=== PATIENT | male | born 1945 | race Caucasian/White ===

== ENCOUNTER 2017-07-07 13:13 | Inpatient (IN) | payer OTHER ==
[~2017-07-07] VITALS: Ht 182.9 cm; Wt 95.0 kg
[2017-07-07] VITALS (33 sets, daily range): BP systolic 97–162; BP diastolic 56–110; PULSE 64–94; RESP 14–33; Ht 182.9 cm; Wt 95.0 kg
[2017-07-07] MEDS ORDERED: MIDAZOLAM 5 MG/ML 1 ML ONE (13:35)
[2017-07-07] MEDS ORDERED: PROPOFOL 100 ML IV STA (13:42)
[2017-07-07] MEDS ORDERED: SODIUM CHLORIDE 0.9% 500 ML BAG IV* STA ×2 (13:42→15:18)
[2017-07-07] MEDS ORDERED: ASPIRIN 300 MG SUPP PR STA (13:42)
[2017-07-07] MEDS ORDERED: VECURONIUM 100 MG in DEXTROSE 5% 100 ML IV ONE (13:42)
[2017-07-07] MEDS ORDERED: PROPOFOL 100 ML ONE (13:46)
--- NOTE | 2017-07-07 13:52 | ERD ---
ER Documentation Chief Complaint Chief Complaint CARDIAC ARREST HPI History is supplemented by subsequent discussion with the [place] [facility]. 71-year-old male with history of coronary artery disease status post PCI and CABG, hyperlipidemia, hypertension and GERD presents to the ED via rescue ambulance after resuscitated cardiac arrest. Patient was found down in the locker room at his gym unresponsive. Bystander CPR was initiated. Approximate downtime was 8 minutes. When paramedics arrived patient was found to be in ventricular fibrillation was resuscitated with epinephrine 1 mg 3, amiodarone 450 mg IV and defibrillation 3. His transport to the ED in sinus rhythm. On arrival patient is unresponsive with agonal respirations. ROS All systems reviewed and are negative except as per history of present illness. Medications Home Meds Reported Medications Atorvastatin* (Atorvastatin*) 80 Mg Tablet, 80 MG PO QHS, #30 TAB 07/07/17 Atenolol* (Atenolol*) 25 Mg Tablet, 25 MG PO DAILY, #30 TAB 07/07/17 Allergies Allergies: Coded Allergies: Unknown: Unable to obtain (Unverified , 07/07/17) PT UNRESPONSIVE. PMhx/Soc As per HPI History of Surgery: Yes (CABG, PCI) Hx Neurological Disorder: No Hx Respiratory Disorders: No Hx Cardiac Disorders: Yes (CAD, HTN) Hx Psychiatric Problems: No Hx Alcohol Use: No Hx Substance Use: No Hx Tobacco Use: No Smoking Status: Unknown if ever smoked FmHx unknown Physical Exam Vitals Vital Signs Date Time Temp Pulse Resp B/P Pulse Ox O2 Delivery O2 Flow Rate FiO2 07/07/17 16:45 95.3 85 16 162/109 97 07/07/17 16:44 95.6 86 16 162/109 97 07/07/17 16:29 92 07/07/17 16:00 96.7 76 17 144/101 100 07/07/17 15:45 96.9 76 19 140/97 100 07/07/17 15:30 97.0 76 19 141/101 100 07/07/17 15:30 76 17 100 100 07/07/17 15:15 97.1 78 27 145/108 100 07/07/17 15:00 97.3 78 27 99/56 100 07/07/17 14:45 97.0 82 33 136/104 100 07/07/17 14:30 97.2 77 24 99/75 100 07/07/17 14:15 97.2 74 24 100/75 100 07/07/17 14:00 97.4 71 24 97/76 100 07/07/17 13:47 97.4 73 25 101/72 100 07/07/17 13:30 98.7 75 18 133/94 77 07/07/17 13:25 89 29 94 100 Physical Exam Const: Responsive, severe distress Head: Atraumatic Eyes: Normal Conjunctiva. Pupils constricted but reactive ENT: Normal External Ears, Nose and Mouth. Neck: JVD Resp: Agonal respirations Cardio: Regular rate and rhythm, no murmurs. Status post median sternotomy Abd: Soft, non distended. No masses. Skin: No petechiae or rashes Back: No midline or flank tenderness Ext: No cyanosis, or edema Neur: Unresponsive. Physical exam is truncated due to the constraints imposeved by the patient's clinical condition Result Diagram: 07/08/17 0600 07/08/17 0600 Results 24 hrs Laboratory Tests Test 07/07/17 13:42 07/07/17 13:50 07/07/17 14:40 07/07/17 15:30 Blood Gas Specimen Source Blood arterial Arterial Blood Date Drawn 07/07/2017 2:48:11 PM Arterial Blood pH (Temp corrected) 7.256 Arterial Blood pCO2 (Temp correct) 39.5mmhg Arterial Blood pO2 (Temp corrected) 100.5mmHG Arterial Blood HCO3 17.4mmol/L Arterial Blood Base Excess -9.5mmol/L Arterial Blood Oxygen Saturation 96.9mmHG Ilan Test ACCEPTAB Arterial Blood Gas Puncture Site Right Radial Arterial Blood Carboxyhemoglobin 0.1% Arterial Blood Methemoglobin 0.4% Blood Gas A-a O2 Differential 575.6mmHg Oxyhemoglobin Percent 96.4% Total Hemoglobin 15.8g/dl Blood Gas Temperature 36.0C Blood Gas Respiration Rate 16.0 Blood Gas Actual Respiration Rate 34 Blood Gas Modality VENT - AC FiO2 100.0% Blood Gas Tidal Volume 500.0mL Blood Gas Critical Value Read Back OLGA Purdy Blood Gas Notified Whom MDA Blood Gas Notified Time 07/07/2017 2:53:50 PM White Blood Count 7.310^3/ul 19.010^3/ul Red Blood Count 2.3210^6/ul 4.8410^6/ul Hemoglobin 7.4g/dl 15.1g/dl Hematocrit 23.2% 46.2% Mean Corpuscular Volume 100.0fl 95.5fl Mean Corpuscular Hemoglobin 31.9pg 31.2pg Mean Corpuscular Hemoglobin Concent 31.9g/dl 32.7g/dl Red Cell Distribution Width 13.5% 13.5% Platelet Count 9510^3/UL 64243^3/UL Mean Platelet Volume 12.2fl 11.4fl Neutrophils % 36.7% 81.3% Lymphocytes % 55.9% 13.5% Monocytes % 4.0% 3.2% Eosinophils % 1.7% 0.6% Basophils % 0.3% 0.3% Nucleated Red Blood Cells % 0.0/100WBC 0.0/100WBC Neutrophils # 2.710^3/ul 15.510^3/ul Lymphocytes # 4.110^3/ul 2.610^3/ul Monocytes # 0.310^3/ul 0.610^3/ul Eosinophils # 0.110^3/ul 0.110^3/ul Basophils # 0.010^3/ul 0.110^3/ul Nucleated Red Blood Cells # 0.010^3/ul 0.010^3/ul Prothrombin Time 22.1Sec Prothrombin Time Ratio 1.7 INR International Normalized Ratio 1.91 Activated Partial Thromboplast Time 42.2Sec Sodium Level 148mmol/L 141mmol/L Potassium Level 1.5mmol/L 5.7mmol/L Chloride Level 131mmol/L 109mmol/L Carbon Dioxide Level 8mmol/L 22mmol/L Anion Gap 11 16 Blood Urea Nitrogen 7mg/dl 17mg/dl Creatinine 0.45mg/dl 1.17mg/dl Glucose Level 104mg/dl 186mg/dl Calcium Level 2.6mg/dl 8.2mg/dl Phosphorus Level 2.6mg/dl Magnesium Level 0.8mg/dl 1.8mg/dl Total Bilirubin 0.1mg/dl 0.6mg/dl Direct Bilirubin 0.00mg/dl 0.00mg/dl Indirect Bilirubin 0.1mg/dl 0.6mg/dl Aspartate Amino Transf (AST/SGOT) 28IU/L 105IU/L Alanine Aminotransferase (ALT/SGPT) 35IU/L 102IU/L Alkaline Phosphatase 36IU/L 116IU/L Troponin I < 0.012ng/ml B-Type Natriuretic Peptide 74PG/ML Total Protein 2.3g/dl 6.6g/dl Albumin 1.1g/dl 3.4g/dl Globulin 1.20g/dl 3.20g/dl Albumin/Globulin Ratio 0.91 1.06 Urine Color YELLOW Urine Clarity CLOUDY Urine pH 5.0 Urine Specific [place] 1.017 Urine Ketones NEGATIVEmg/dL Urine Nitrite NEGATIVEmg/dL Urine Bilirubin NEGATIVEmg/dL Urine Urobilinogen NEGATIVEmg/dL Urine Leukocyte Esterase NEGATIVELeu/ul Urine Microscopic RBC 64/HPF Urine Microscopic WBC 7/HPF Urine Squamous Epithelial Cells FEW/HPF Urine Mucus MODERATE/HPF Urine Hemoglobin 2+mg/dL Urine Glucose 1+mg/dL Urine Total Protein 2+mg/dl Current Medications Medications (Trade) Dose Ordered Sig/Elisabeth Route PRN Reason Start Time Stop Time Status Last Admin Dose Admin Propofol (Diprivan) 100 ml @ 0 mls/hr TITRATE ONCE IV 07/07/17 14:00 07/07/17 14:01 DC Aspirin (Aspirin) 300 mg ONCE STAT RI 07/07/17 13:42 07/07/17 13:48 DC 07/07/17 14:44 Sodium Chloride 500 ml 500 ml ONCE STAT IV* 07/07/17 13:42 07/07/17 13:48 DC Propofol (Diprivan) 100 ml @ 2.4 mls/hr ONCE STAT IV 07/07/17 13:42 07/07/17 17:26 DC 07/07/17 14:00 Vecuronium [place] 8 mg 8 mg ONCE ONCE IV 07/07/17 14:00 07/07/17 14:01 DC 07/07/17 14:45 Vecuronium [place] 100 mg/ Dextrose 100 ml @ 4.8 mls/hr [id number] ONCE IV 07/07/17 13:42 07/07/17 17:26 DC 07/07/17 15:00 Midazolam HCl 1 ml @ ud STK-MED ONCE .ROUTE 07/07/17 13:35 07/07/17 15:17 DC Propofol (Diprivan) 100 ml @ ud STK-MED ONCE .ROUTE 07/07/17 13:46 07/07/17 15:17 DC Sodium Chloride (NS) 2,400 ml ONCE STAT IV* 07/07/17 15:18 07/07/17 21:30 DC Albuterol 15 mg 15 mg ONCE STAT INH 07/07/17 15:21 07/07/17 15:23 DC Magnesium Sulfate/ Dextrose 100 ml @ 100 mls/hr ONCE ONCE IVPB 07/07/17 15:30 07/07/17 16:29 DC Cefepime HCl (Maxipime 2gm/50 ml (Pmx)) 50 ml @ 100 mls/hr Q12 IVPB 07/07/17 15:30 07/08/17 11:14 EKG #1: 13: 19. Accelerated junctional rhythm. Rate 65. Right axis deviation. Diffuse ST segment depressions but no ST segment elevation. No ectopy. EP interpretation: Abnormal ECG. EKG #2: 13: 40. Sinus rhythm ventricular rate 92. RI interval 244 ms consistent with first-degree AV block. Nonspecific ST-T wave changes but no acute ST segment elevation. No ectopy. EP interpretation: Abnormal ECG Ordering MD: MARY ESPINOZA MD Location: E/R Room/Bed: PROCEDURE: XR Chest. CLINICAL INDICATION: Endotracheal tube and central line placement TECHNIQUE: A single portable view of the chest was obtained. COMPARISON: None FINDINGS: An endotracheal tube is seen at the level of the jim satisfactory position. A right subclavian catheter is seen with the tip in the right atrium. Recommend retraction approximately 2-3 cm. A prior median sternotomy is seen. The aorta is tortuous and atherosclerotic. The cardiomediastinal silhouette is otherwise borderline in size. The lung volumes are low with bibasilar compressive atelectasis. The remaining lungs and pleural spaces are clear. The soft tissues and osseous structures demonstrate benign age related senescent changes. IMPRESSION: 1. Satisfactory placement of an endotracheal tube. 2. Right subclavian catheter with the tip in the region. Recommend retraction approximately 2-3 cm. 3. Low lung volumes with bibasilar compressive atelectasis. RPTAT: HPNM Physician Mary Date Time Electronically viewed and signed by Jamshid Pop Physician on 07/07/2017 14 :23 / Procedures/MDM DOCUMENTS REVIEWED: ED nurse no prior records, EMS. MEDICAL DECISION MAKIN-year-old male with history of coronary artery disease status post PCI and CABG, hyperlipidemia, hypertension and GERD presents to the ED via rescue ambulance after resuscitated cardiac arrest. Patient presents with V. fib arrest successfully resuscitated in the field. ROSC and hypothermia protocol was initiated. Patient intubated without difficulty and central venous catheter was placed in the right subclavian as described. There are no acute ischemic EKG changes or elevated troponin. Cardiology was consulted. Admit to the ICU. Endotracheal Intubation by me: Pre assessment performed. See preceding note for details. Pre-oxygenation performed with 100% oxygen RSI: Performed w/o complication or hypoxic events. Medications as ordered. Blade: [place] scope #4 ET Tube: 7.5 cm Depth: 23 cm at the lip Intubation confirmed by colorimetric CO2, equal breath sounds, quiet over the stomach. Chest X-ray 1V Interpreted by me: 3 cm above the jim ET tube. Normal soft tissue, No pneumothorax. Central Line Placement by me: Patient consented, sterilely draped, full prep, gown, glove, mask, time out performed. Anesthesia: 1% lidocaine locally Location: Right subclavian Device: Multiple lumen Technique: Seldinger technique. Secured with suture. Results: Venous return from all ports with easy saline flush. No complications. Guide wire retrieved and disposed of. Chest X-ray 1V Interpreted by me: Central line in atrium. Normal soft tissue, No evidence of pneumothorax. Critical Care Time: 35 minutes Treatments/Evaluations: Close monitoring and treatment of unstable vital signs, cardiorespiratory, and neurologic status, while maintaining tight balance of fluid, respiratory, and cardiac interventions. This time includes discussing the case with the patient and the patient's family. This time does not include all procedures stated elsewhere in this record. This time also includes reviewing old records, labs and radiological studies. This time includes examining and re-examining the patient. Additionally, this time also includes arranging care with admitting and consulting physicians. CALLS/CONSULTS: Time 15:00, Dr. Suero, [facility]. Agrees the patient is not stable for transfer. Case #[id number] assigned CALLS/CONSULTS: Time , Dr. Wallace, Recommends urgent cardiac cath CALLS/CONSULTS: Time , Dr. Kaplan, Recommends [facility] to ICU. PATIENT CARE TRANSITIONED: Time: 14:15, Dr. Kaplan. Departure Diagnosis: Primary Impression: Cardiac arrest Additional Impressions: Signs of return of spontaneous circulation H/O coronary artery bypass surgery Condition: Critical MARY ESPINOZA MD Jul 07, 2017 13:52
[2017-07-07] MEDS ORDERED: VECURONIUM 10 MG VIAL IV ONE (14:00)
[2017-07-07] MEDS ORDERED: PROPOFOL 100 ML IV ONE (14:00)
[2017-07-07 14:03] LABS: ABNORMAL IP MESSAGE 1; BASOPHILS % 0.3 % (0.0-2.0); EOSINOPHILS # 0.1 10^3/ul (0.0-0.5); EOSINOPHILS % 1.7 % (0.0-7.0); HEMATOCRIT 23.2 % (42.0-52.0); HEMOGLOBIN 7.4 g/dl (14.0-18.0); LYMPHOCYTES # 4.1 10^3/ul (0.8-2.9); LYMPHOCYTES % 55.9 % (15.0-51.0); MEAN CORPUSCULAR HEMOGLOBIN 31.9 pg (29.0-33.0); MEAN CORPUSCULAR HGB CONC 31.9 g/dl (32.0-37.0); MEAN PLATELET VOLUME 12.2 fl (7.4-10.4); MONOCYTE # 0.3 10^3/ul (0.3-0.9); NEUTROPHIL # 2.7 10^3/ul (1.6-7.5); NEUTROPHILS % 36.7 % (39.0-77.0); PLATELET COUNT 95 10^3/UL (140-415); POSITIVE DIFF @See below; RED BLOOD COUNT 2.32 10^6/ul (4.70-6.10); RED CELL DISTRIBUTION WIDTH 13.5 % (11.5-14.5); WHITE BLOOD COUNT 7.3 10^3/ul (4.8-10.8)
[2017-07-07 14:18] LABS: INR 1.91; PROTIME 22.1 Sec (12.2-14.2); PT RATIO 1.7
[2017-07-07 14:19] LABS: PARTIAL THROMBOPLASTIN TIME 42.2 Sec (25.0-35.0)
[2017-07-07] MEDS ORDERED: ATEN-51 PO (14:22)
[2017-07-07] MEDS ORDERED: ATOR80TA75 PO (14:22)
[2017-07-07 14:23] LABS: ALANINE AMINOTRANSFERASE 35 IU/L (13-69); ALBUMIN 1.1 g/dl (3.3-4.9); ALBUMIN/GLOBULIN RATIO 0.91; ALKALINE PHOSPHATASE 36 IU/L (42-121); ANION GAP 11 (8-16); ASPARTATE AMINO TRANSFERASE 28 IU/L (15-46); BILIRUBIN,INDIRECT 0.1 mg/dl (0-1.1); BILIRUBIN,TOTAL 0.1 mg/dl (0.2-1.3); BLOOD UREA NITROGEN 7 mg/dl (7-20); CHLORIDE 131 mmol/L (97-110); CREATININE 0.45 mg/dl (0.61-1.24); GLUCOSE 104 mg/dl (70-220); PHOSPHORUS 2.6 mg/dl (2.5-4.9); SODIUM 148 mmol/L (135-144); TOTAL PROTEIN 2.3 g/dl (6.1-8.1)
--- NOTE | 2017-07-07 14:23 | RADRPT ---
PROCEDURE: XR Chest. CLINICAL INDICATION: Endotracheal tube and central line placement TECHNIQUE: A single portable view of the chest was obtained. COMPARISON: None FINDINGS: An endotracheal tube is seen at the level of the jim satisfactory position. A right subclavian ca theter is seen with the tip in the right atrium. Recommend retraction approximately 2-3 cm. A prior median sternotomy is seen. The aorta is tortuous and atherosclerotic. The cardiomediastinal silhoue tte is otherwise borderline in size. The lung volumes are low with bibasilar compressive atelectasis . The remaining lungs and pleural spaces are clear. The soft tissues and osseous structures demonst rate benign age related senescent changes. IMPRESSION: 1. Satisfactory placement of an endotracheal tube. 2. Right subclavian catheter with the tip in the region. Recommend retraction approximately 2-3 cm. 3. Low lung volumes with bibasilar compressive atelectasis. RPTAT: HPNM Physician Mary Date Time Electronically viewed and signed by Physician Mary on 07/07/2017 14:23 /
[2017-07-07 14:29] LABS: CARBON DIOXIDE 8 mmol/L (21-31); POTASSIUM 1.5 mmol/L (3.5-5.1)
[2017-07-07 14:34] LABS: B-TYPE NATRIURETIC PEPTIDE 74 PG/ML (0-125)
[2017-07-07 14:35] LABS: TROPONIN-I < 0.012 ng/ml (0.00-0.12)
[2017-07-07 14:48] LABS: BASOPHIL # 0.1 10^3/ul (0.0-0.1); BASOPHILS % 0.3 % (0.0-2.0); EOSINOPHILS # 0.1 10^3/ul (0.0-0.5); EOSINOPHILS % 0.6 % (0.0-7.0); HEMATOCRIT 46.2 % (42.0-52.0); HEMOGLOBIN 15.1 g/dl (14.0-18.0); LYMPHOCYTES # 2.6 10^3/ul (0.8-2.9); LYMPHOCYTES % 13.5 % (15.0-51.0); MEAN CORPUSCULAR HEMOGLOBIN 31.2 pg (29.0-33.0); MEAN CORPUSCULAR HGB CONC 32.7 g/dl (32.0-37.0); MEAN CORPUSCULAR VOLUME 95.5 fl (82.0-101.0); MEAN PLATELET VOLUME 11.4 fl (7.4-10.4); MONOCYTE # 0.6 10^3/ul (0.3-0.9); MONOCYTES % 3.2 % (0.0-11.0); NEUTROPHIL # 15.5 10^3/ul (1.6-7.5); NEUTROPHILS % 81.3 % (39.0-77.0); PLATELET COUNT 189 10^3/UL (140-415); RED BLOOD COUNT 4.84 10^6/ul (4.70-6.10); RED CELL DISTRIBUTION WIDTH 13.5 % (11.5-14.5)
[2017-07-07 14:54] LABS: AADO2 Arterial 575.6 mmHg (7.0-24.0); Allen Test ACCEPTAB; Arterial Base Excess -9.5 mmol/L (-3.0-3); Arterial COHb 0.1 % (0.0-3.0); Arterial Fraction of Oxyhgb 96.4 % (93.0-99.0); Arterial HCO3 17.4 mmol/L (22.0-26.0); Arterial MetHb 0.4 % (0.0-1.5); Arterial Total Hemglobin 15.8 g/dl (12.0-18.0); MODE VENT - AC
[2017-07-07 15:07] LABS: ALBUMIN 3.4 g/dl (3.3-4.9); ALBUMIN/GLOBULIN RATIO 1.06; BILIRUBIN,INDIRECT 0.6 mg/dl (0-1.1); BILIRUBIN,TOTAL 0.6 mg/dl (0.2-1.3); CALCIUM 8.2 mg/dl (8.4-10.2); CREATININE 1.17 mg/dl (0.61-1.24); MAGNESIUM 1.8 mg/dl (1.7-2.5); POTASSIUM 5.7 mmol/L (3.5-5.1); TOTAL PROTEIN 6.6 g/dl (6.1-8.1)
[2017-07-07] MEDS ORDERED: ALBUTEROL 0.5% (NEB) 2.5 MG/0.5 ML AMP INH STA (15:21)
[2017-07-07] MEDS ORDERED: MAGNESIUM SULFATE 1 GM/D5W 100 ML IVPB ONE (15:30)
[2017-07-07] MEDS: CEFEPIME 2GM/50 ML (PMX) 50 ML IVPB SCH (15:30)
[2017-07-07 16:12] LABS: ADD UMIC YES; UR ASCORBIC ACID 40 mg/dL (NEGATIVE); UR BILIRUBIN (Dip) NEGATIVE (NEGATIVE); UR BLOOD (Dip) 2+ mg/dL (NEGATIVE); UR CLARITY CLOUDY (CLEAR); UR COLOR YELLOW (YELLOW); UR GLUCOSE (Dip) 1+ mg/dL (NEGATIVE); UR KETONES (Dip) NEGATIVE (NEGATIVE); UR LEUKOCYTE ESTERASE (Dip) NEGATIVE Leu/ul (NEGATIVE); UR MUCUS MODERATE /HPF (NONE SEEN); UR NITRITE (Dip) NEGATIVE (NEGATIVE); UR RBC 64 /HPF (0-5); UR SPECIFIC GRAVITY (Dip) 1.017 (1.003-1.030); UR SQUAMOUS EPITHELIAL CELL FEW /HPF (FEW); UR TOTAL PROTEIN (Dip) 2+ mg/dl (NEGATIVE); UR UROBILINOGEN (Dip) NEGATIVE (NEGATIVE)
[2017-07-07] MEDS ORDERED: ACETAMINOPHEN 650 MG SUPP PR PRN (17:00)
[2017-07-07] MEDS: ACCU-CHEK XX SCH ×7 (17:00→23:00)
[2017-07-07] MEDS ORDERED: ACETAMINOPHEN 650MG/20.3ML CUP PO PRN (17:00)
[2017-07-07] MEDS ORDERED: MEPERIDINE 25 MG INJ IV PRN ×2 (17:00)
[2017-07-07] MEDS ORDERED: DEXTROSE 50% 50 ML SYRINGE IV PRN ×2 (17:00)
[2017-07-07] MEDS ORDERED: NACL 0.9% 3 ML SYG IV SCH (17:30)
[2017-07-07] MEDS ORDERED: ACETAMINOPHEN 325 MG TAB PO PRN (17:30)
[2017-07-07] MEDS ORDERED: morphine 2 MG INJ IV PRN (17:30)
[2017-07-07] MEDS ORDERED: HYDROCODONE/APAP (5/325) TAB PO PRN (17:30)
--- NOTE | 2017-07-07 17:35 | HP ---
Date/Time of Note Date/Time of Note DATE: 07/07/17 TIME: 17:31 Assessment/Plan VTE Prophylaxis VTE Prophylaxis Intervention: LMWH Lines/Catheters IV [facility]from [facility] Peripheral IV Assessment/Plan Chief Complaint/Hosp Course 1. Cardiac arrest Cardiology consultation Hypothermia protocol 2D echo ICU monitoring Evaluate neurologic function 2. Leukocytosis-likely reactive 3. Elevated LFTs secondary to cardiac arrest Monitor Prophylaxis: Lovenox Problems: HPI/ROS Admit Date/Time Admit Date/Time Jul 07, 2017 at 16:46 Hx of Present Illness Patient is a 71-year-old male with no known medical history, patient had a cardiac arrest while in the locker room of a gym. Patient had a return of circulation after being given 2 rounds epinephrine, patient was intubated in the ED and no history can be obtained from the patient. Hypothermia protocol has been initiated. ROS Unable to obtain PMH/Family/Social Past Medical History Unknown Social History Smoking Status: Unknown if ever smoked Exam/Review of Systems Vital Signs Vitals Vital Signs Date Time Temp Pulse Resp B/P Pulse Ox O2 Delivery O2 Flow Rate FiO2 07/07/17 16:48 100 07/07/17 16:44 95.6 86 16 162/109 97 Exam Constitutional: non-verbal Head: normocephalic ENMT: intubated Respiratory: clear to auscultation Cardiovascular: regular rate and rhythm Gastrointestinal: soft, No distended Musculoskeletal: nl extremities to inspection Labs Result Diagram: 07/07/17 1440 07/07/17 1440 Medications Medications Current Medications Cefepime HCl 50 ml @ 100 mls/hr Q12 IVPB ; Start 07/07/17 at 15:30 Vecuronium [place]/Dextrose (Norcuron/D5W) 100 ml @ 4.8 mls/hr [id number] IV ; Start 07/07/17 at 16:58 Acetaminophen (Tylenol Supp) 650 mg Q4H PRN MO TEMP > 37C; Start 07/07/17 at 17 :00 Acetaminophen (Tylenol Liquid) 650 mg Q4H PRN PO TEMP > 37C; Start 07/07/17 at 17:00 Acetaminophen (Tylenol Supp) 500 mg Q6H MO ; Start 07/08/17 at 17:00 Acetaminophen (Tylenol Liquid) 500 mg Q6H PO ; Start 07/08/17 at 17:00 Meperidine HCl (Demerol) 12.5 mg Q4H PRN IV POST OPERATIVE SHIVERING; Start at 17:00 Meperidine HCl (Demerol) 25 mg Q4H PRN IV POST OPERATIVE SHIVERING; Start 07/07 at 17:00 Eye Lubricant ([place]wa Oint) 1 applic Q6 BOTH EYES ; Start 07/07/17 at 18:00 Eye Lubricant (Artificial Tears Oph) 2 drop Q6 BOTH EYES ; Start 07/07/17 at 18: 00 Diagnostic Test (Pha) (Accu-Chek) 1 ea Q1H XX ; Start 07/07/17 at 17:00 Dextrose (D50w Syringe) 25 ml Q15M PRN IV Till BS 80 mg/dL or above x2; Start 07/07/17 at 17:00 Dextrose (D50w Syringe) 50 ml Q15M PRN IV Till BS 80 mg/dL or above x2; Start 07/07/17 at 17:00 Acetaminophen (Tylenol Tab) 650 mg Q6H PRN PO PAIN LEVEL 1-3 OR FEVER; Start 07/07/17 at 17:30; Status UNV Acetaminophen/ Hydrocodone Bitart ([place]iffin (5/325)) 1 tab Q6H PRN PO MODERATE PAIN LEVEL 4-6; Start 07/07/17 at 17:30; Status UNV Morphine Sulfate (morphine) 2 mg Q4H PRN IV SEVERE PAIN LEVEL 7-10; Start 07/07 at 17:30; Status UNV Pantoprazole (Protonix Iv) 40 mg DAILY@06 IV ; Start 07/08/17 at 06:00; Status UNV Enoxaparin Sodium (Lovenox) 40 mg DAILY SC ; Start 07/08/17 at 09:00; Status UNV MEERA DAVIES Jul 07, 2017 17:35
[2017-07-07] MEDS: PROPOFOL 100 ML IV SCH (17:49)
[2017-07-07] MEDS: VECURONIUM 100 MG in DEXTROSE 5% 100 ML IV SCH (17:50)
[2017-07-07] MEDS ORDERED: INSULIN HUMAN REGULAR 100 UNIT in SOD CHLORIDE 0.9% 99 ML IV SCH (18:00)
--- NOTE | 2017-07-07 18:22 | RADRPT ---
PROCEDURE: XR Chest. CLINICAL INDICATION: Check nasogastric tube position. TECHNIQUE: Single frontal view. COMPARISON: 07/07/2017. 1411 hours. FINDINGS: The nasogastric tube has been inserted with the tip in satisfactory position in the upper stomach. T he right subclavian vein catheter tip is in the upper right atrium. The endotracheal tube should be advanced approximately 3 cm as the tip is at the level of the upper clavicles, approximately 5 cm ab ove the jim. There are sternal wires. The heart size is mildly enlarged. There is air space and interstitial disease bilaterally consistent with pulmonary edema. There is bi lateral subcutaneous emphysema with left worse than right. There is no pleural effusion. There is no right pneumothorax. There is a left pneumothorax measuring approximately 40%. IMPRESSION: 1. Nasogastric tube tip in the upper stomach. 2. Right subclavian vein catheter tip in the upper right atrium. 3. The endotracheal tube should be advanced approximately 3 cm. 4. Previous median sternotomy. Cardiomegaly. 5. Pulmonary edema, worse than seen previously. 6. Subcutaneous emphysema with left worse than right. 7. Left pneumothorax measuring approximately 40%. Chest tube placement advised. Call report: A call report of the findings was made to Dr. Kaplan on 07/07/2017 at 18 0920 hours. RPTAT: QQ .Juan Luis Nina MD, MD Date Time Electronically viewed and signed by .Juan Luis Nina MD, MD on 07/07/2017 18:22 .R/
[2017-07-07 18:25] LABS: BASOPHIL # 0.1 10^3/ul (0.0-0.1); BASOPHILS % 0.3 % (0.0-2.0); EOSINOPHILS % 0.2 % (0.0-7.0); HEMOGLOBIN 16.3 g/dl (14.0-18.0); LYMPHOCYTES # 1.6 10^3/ul (0.8-2.9); LYMPHOCYTES % 9.2 % (15.0-51.0); MEAN CORPUSCULAR HEMOGLOBIN 31.3 pg (29.0-33.0); MEAN CORPUSCULAR HGB CONC 33.3 g/dl (32.0-37.0); MEAN PLATELET VOLUME 11.2 fl (7.4-10.4); MONOCYTE # 0.9 10^3/ul (0.3-0.9); MONOCYTES % 5.5 % (0.0-11.0); NEUTROPHIL # 14.4 10^3/ul (1.6-7.5); NEUTROPHILS % 84.3 % (39.0-77.0); PLATELET COUNT 195 10^3/UL (140-415); RED BLOOD COUNT 5.21 10^6/ul (4.70-6.10); RED CELL DISTRIBUTION WIDTH 13.5 % (11.5-14.5); WHITE BLOOD COUNT 17.1 10^3/ul (4.8-10.8)
--- NOTE | 2017-07-07 18:27 | RADRPT ---
PROCEDURE: XR Abdomen. CLINICAL INDICATION: Check nasogastric tube position. TECHNIQUE: AP supine abdomen x-ray. COMPARISON: Chest x-ray done earlier the same day. FINDINGS: The nasogastric tube and stomach are not included on the image. There is no evidence of obstruction. There are no abnormal calcifications overlying the urinary tracts. There are mild degenerative changes of the spine. There is a Alvarez catheter in the bladder. IMPRESSION: 1. Nasogastric tube in stomach not included on the image. 2. Mild degenerative changes of the spine. 3. Alvarez catheter in the bladder. RPTAT: QQ .Juan Luis Nina MD, MD Date Time Electronically viewed and signed by .Juan Luis Nina MD, on 07/07/2017 18:27 .R/
[2017-07-07] MEDS ORDERED: SOD CHLORIDE 0.9% 1,000 ML IV SCH ×2 (18:30→20:43)
[2017-07-07 18:45] LABS: CALCIUM 7.8 mg/dl (8.4-10.2); CREATININE 0.75 mg/dl (0.61-1.24); MAGNESIUM 1.8 mg/dl (1.7-2.5); PHOSPHORUS 3.7 mg/dl (2.5-4.9)
[2017-07-07 18:47] LABS: INR 1.12; PROTIME 14.4 Sec (12.2-14.2); PT RATIO 1.1
--- NOTE | 2017-07-07 18:59 | CONS ---
DATE OF ADMISSION: 07/07/2017 DATE OF CONSULTATION: REASON FOR CONSULT: Cardiac arrest. HISTORY OF PRESENT ILLNESS: This is a 71-year-old gentleman who apparently was exercising on a mirian dmill per chart, became unresponsive with cardiac arrest, possible ventricular tachycardia, received CPR with return of circulation. The patient was brought to the emergency room, placed on mechanica l ventilation and now initiated on hypothermia cooling protocol. FAMILY HISTORY: Unknown. MEDICATIONS PRIOR TO ADMISSION: Unknown. ALLERGIES: UNKNOWN. REVIEW OF SYSTEMS: A 12-point review of systems unable to perform. PHYSICAL EXAMINATION: GENERAL: Well-nourished, well-developed gentleman, intubated on mechanical ventilation, appears com fortable at rest. VITAL SIGNS: Temperature is 96, pulse 78, blood pressure 99/56, O2 saturation 96%, FIO2 of 100%. NECK: Supple. No JVD or lymphadenopathy. CARDIAC: S1, S2, no added sounds or murmurs. CHEST: Diminished air entry bilaterally. ABDOMEN: Soft, nontender. No guarding or rebound. EXTREMITIES: No cyanosis, clubbing, edema. NEUROLOGIC: Unable to assess. LABORATORY DATA: White 19.0, hemoglobin 15.1, platelets of 189. BUN 17, creatinine 1.17. INR 1.91 . ABG: pH 7.25, pCO2 of 39, pO2 of 100, bicarbonate of 17. DIAGNOSTIC STUDIES: Chest x-ray shows low lung volumes. Subclavian catheter in place. IMPRESSION AND PLAN: 1. Cardiopulmonary arrest. 2. Likely ventricular arrhythmia. 3. Questionable underlying coronary heart disease. 4. Possible aspiration pneumonia. 5. Metabolic acidosis. RECOMMENDATIONS: 1. Continue hypothermia protocol. 2. Cardiology recommendation. 3. Antibiotics for aspiration pneumonia. 4. DVT and GI prophylaxis. Dictated By: KENYETTA CROWELL/JANETT Conf#: [id number] DID#: [id number]
[2017-07-07] MEDS ORDERED: IODIXANOL LOCM 100 ML BTL ONE (19:28)
[2017-07-07] MEDS ORDERED: NITROGLYCERIN (IC) 100 MCG/ML INJ ONE (19:28)
[2017-07-07] MEDS ORDERED: VERAPAMIL 5 MG INJ ONE (19:28)
[2017-07-07] MEDS ORDERED: LIDOCAINE 1% (MDV) 20 ML INJ ONE (19:28)
[2017-07-07] MEDS ORDERED: HEPARIN 1000 UNITS/ML 10 ML INJ ONE (19:28)
--- NOTE | 2017-07-07 20:53 | SIPON ---
Date/Time of Note Date/Time of Note DATE: 07/07/17 TIME: 20:51 Operative Report Preoperative Diagnosis 1.cardiac arrest 2,Nstemi 3.cabg Postoperative Diagnosis 1.obstructive cad 2.Patent GR-LAD Operation/Procedure Performed 1.[facility] 2.Ao root angio Surgeon see signature line human resource assistant 1.[facility] Anesthesia: general Estimated blood loss: minimal Transfusion Required none Specimen NA Grafts/Implants none Complications none CASIE ORTIZ Jul 07, 2017 20:52
[2017-07-07] MEDS: DEXTROSE 5%-0.45% NACL 1,000 ML IV SCH (21:54)
--- NOTE | 2017-07-07 23:03 | CONS ---
DATE OF ADMISSION: 07/07/2017 DATE OF CONSULTATION: REASON FOR CONSULTATION: Pneumothorax. HISTORY OF PRESENT ILLNESS: This is a 71-year-old male who was admitted with a cardiac arrest. Sub sequently had CPR. Has now currently being placed on hypothermia protocol and is unresponsive. Par t of his evaluation has included a chest x-ray, which showed a 40% pneumothorax on the left side. W e are unable to get ahold of the family at the present time. PAST MEDICAL HISTORY: Unknown. PAST SURGICAL HISTORY: Unknown. SOCIAL HISTORY: Unknown. PHYSICAL EXAMINATION: VITAL SIGNS: Blood pressure is 145/101, pulse is 81, respirations 18, saturation is 93% on 90% FIO2 . HEENT: Orotracheally intubated, unresponsive. CARDIOVASCULAR: Normal S1, S2. LUNGS: Have diminished breath sounds on the left. ABDOMEN: Soft. EXTREMITIES: Warm. LABORATORY VALUES: Significant for a hemoglobin of 16.3. IMPRESSION: 1. Status post cardiac arrest with CPR. 2. Left-sided pneumothorax. RECOMMENDATIONS: The patient will benefit from a chest tube after consent is available and code sta tus has been clarified. Discussed with the nursing staff. Dictated By: GENEVA CALDERON MD FM/NTS Conf#: [id number] DID#: [id number]
--- NOTE | 2017-07-07 23:56 | RADRPT ---
PROCEDURE: XR Chest. CLINICAL INDICATION: Evaluate endotracheal intubation. TECHNIQUE: Single frontal view of the chest. COMPARISON: 07/07/2017. FINDINGS: Endotracheal intubation is seen with tip about 38 mm above the jim. Right central venous line in place with tip in the superior vena cava right atrial junction versus p roximal right atrium. Nasogastric tube in place with side port in the region of the gastroesophageal junction and recommen d advancing same about 10 cm and re-imaging. Transcutaneous pacing pads overlying the bilateral chest. Cardiomegaly again seen. Bilateral patchy atelectasis versus airspace disease and the hypoinflated l ungs. Subcutaneous emphysema again seen over the left hemithorax. Small left pleural effusion is lik juma present. There is no evident pneumothorax. The osseous structures and soft tissues are unremarka ble. IMPRESSION: 1. Endotracheal intubation is seen with tip about 38 mm above the jim. 2. Nasogastric tube in place with side port in the region of the gastroesophageal junction and recom mend advancing same about 10 cm and re-imaging. 3. Bilateral patchy atelectasis versus airspace disease with small left pleural effusion. RPTAT: UU Physician Renato Date Time Electronically viewed and signed by Physician Renato on 07/07/2017 23:56 RS/
[2017-07-08] VITALS (67 sets, daily range): BP systolic 80–167; BP diastolic 61–112; PULSE 52–76; RESP 10–23
[2017-07-08 00:16] LABS: AADO2 Arterial 613.5 mmHg (7.0-24.0); Allen Test ACCEPTAB; Arterial Base Excess -7.4 mmol/L (-3.0-3); Arterial COHb 0.3 % (0.0-3.0); Arterial Fraction of Oxyhgb 95.2 % (93.0-99.0); Arterial HCO3 18.7 mmol/L (22.0-26.0); Arterial MetHb 0.2 % (0.0-1.5); Arterial Total Hemglobin 17.6 g/dl (12.0-18.0); Blood Gas Low PEEP Setting 0 cmH2O; MODE VENT - AC
[2017-07-08] MEDS: CEFEPIME 2GM/50 ML (PMX) 50 ML IVPB SCH ×3 (00:17→21:52)
[2017-07-08] MEDS: ARTIFICIAL TEARS 15 ML OPH BOTH EYES SCH ×5 (00:18→17:08)
[2017-07-08] MEDS: OCULAR LUBRICANT 3.5 GM OPH OINT BOTH EYES SCH ×5 (00:18→17:08)
[2017-07-08] MEDS: ACCU-CHEK XX SCH ×24 (00:20→23:52)
[2017-07-08] MEDS: PROPOFOL 100 ML IV SCH ×5 (01:09→21:53)
[2017-07-08 01:10] LABS: BASOPHILS % 0.3 % (0.0-2.0); EOSINOPHILS % 0.2 % (0.0-7.0); HEMATOCRIT 48.4 % (42.0-52.0); HEMOGLOBIN 16.3 g/dl (14.0-18.0); LYMPHOCYTES # 1.2 10^3/ul (0.8-2.9); LYMPHOCYTES % 11.2 % (15.0-51.0); MEAN CORPUSCULAR HGB CONC 33.7 g/dl (32.0-37.0); MEAN CORPUSCULAR VOLUME 92.2 fl (82.0-101.0); MEAN PLATELET VOLUME 11.1 fl (7.4-10.4); MONOCYTE # 0.5 10^3/ul (0.3-0.9); MONOCYTES % 4.7 % (0.0-11.0); NEUTROPHILS % 83.3 % (39.0-77.0); PLATELET COUNT 158 10^3/UL (140-415); RED BLOOD COUNT 5.25 10^6/ul (4.70-6.10); RED CELL DISTRIBUTION WIDTH 13.4 % (11.5-14.5); WHITE BLOOD COUNT 10.8 10^3/ul (4.8-10.8)
[2017-07-08 01:34] LABS: INR 1.02; PROTIME 13.4 Sec (12.2-14.2)
[2017-07-08 01:35] LABS: PARTIAL THROMBOPLASTIN TIME 36.6 Sec (25.0-35.0)
[2017-07-08 01:37] LABS: CALCIUM 7.9 mg/dl (8.4-10.2); CREATININE 0.63 mg/dl (0.61-1.24); MAGNESIUM 1.7 mg/dl (1.7-2.5); PHOSPHORUS 3.1 mg/dl (2.5-4.9); POTASSIUM 3.8 mmol/L (3.5-5.1)
[2017-07-08 01:57] LABS: CK-MB 18.5 ng/ml (0.0-2.4); TROPONIN-I 1.21 ng/ml (0.00-0.12)
--- NOTE | 2017-07-08 02:07 | CARRPT ---
DATE OF PROCEDURE: 07/07/2017 TYPE OF PROCEDURE: 1. Left heart catheterization. 2. Bypass graft angiography including GR arterial graft. 3. Aortic root angiography. 4. Femoral angiography. ATTENDING PHYSICIAN: Casie Wallace MD REFERRING PHYSICIAN: Dr. Aquino from the hospitalist service, and Dr. Palmer from emergency department. INDICATIONS: Cardiac arrest, V-fib arrest with positive troponins. TYPE OF ANESTHESIA: General at this time, intubated. BRIEF HISTORY: Mr. Sen is a 71-year-old male with history of coronary artery disease, status post coronary artery bypass graft surgery 10 years prior, per family, hypertension, dyslipidemia, who initially presented with V-fib arrest after being found down in locker room after exercising at the gym, down. The patient was in V-fib arrest, required ACLS protocol and shock. Shocked him multiple times to get back to perfusing rhythm, and was brought to [facility]. He was then placed on hypothermia protocol, had the positive troponin, EKG abnormalities with ST depressions diffusely. He was evaluated and brought to cardiac catheterization lab in order to assess for the possibility of recurrent significant obstructive coronary artery disease lending to symptoms of cardiac arrest, EKG abnormalities and positive troponin. DESCRIPTION OF PROCEDURE: After informed consent was obtained, the patient was brought to the [facility] cardiac catheterization lab where his right and left groins were prepped and draped in the usual sterile fashion. Two percent Lidocaine was infiltrated into right groin in order to achieve adequate local anesthesia. With modified Seldinger technique, the right femoral artery was cannulated and a 6-Lebanese arterial sheath was placed. A 5- Lebanese JR catheter was used to cannulate the GR arterial graft. After which, with contrast injection, multiple views of this graft were obtained, then used to perform angiography of the subclavian, and then used to subsequently find 2 further occluded stumps of grafts, and additionally used to cannulate the right coronary artery. Afterwards, with contrast injection, multiple views of all these vessels and grafts were obtained. JR was removed over a guidewire. A JL4 was used to cannulate the left main coronary ostium. Contrast injection was used, multiple views of the left coronary arterial system were obtained. JL4 was removed over a guidewire and a multipurpose catheter was used to search for any other grafts in the LCB as well, and neither one identified any further grafts. Subsequently, at this time, the patient had a pigtail catheter passed up his aorta and into his LV. Left ventricular end-diastolic pressure was measured, pulled back across the aortic valve to assess for significant gradient and left in the aortic root. At this time, aortic root angiography was undertaken to further identify any further grafts, which were not identified , and subsequently was removed. At this time, a final angiographic image of the right femoral arterial insertion site was then obtained revealing the sheath to be placed just at the bifurcation of the superficial femoral artery and profunda femoral artery, therefore was sutured in place, to be removed at a later time. This completed the procedure. There were no noted complications. FINDINGS: Coronary angiography: Left main: Large ectatic generated appearing with ulcerated plaques and calcification in the mid portion, approximately 4.5 mm. LAD is 100% flush occluded at its ostium. The circ continuation AV groove is intact and it gives collateral flow to septal branches of the LAD, recapitulating 3 to 4 septal branches. The patient's right coronary artery proximally is a 3 mm vessel and is 100% occluded shortly after its takeoff, and you can see a bridging collateral from a marginal to distal vessel recapitulating the very distal portion of vessel with some flow. Bypass graft angiography: This revealed 2 stumps of graft, 1 with some flow within the graft and then occluded shortly thereafter, and could see prior stents have been in this graft. The GR arteriograph was widely patent with no intervening stenosis and supplies a reasonable sized distal LAD with no significant intervening stenosis thereafter, and then gives collateral circulation back toward the right coronary artery, and there is no subclavian stenoses. Aortic root angiography: This revealed the patient to have no further unidentified grafts. Measurement of left ventricular end-diastolic pressure was 16 to 17. No significant aortic stenosis by gradient. TOTAL FLUOROSCOPY TIME: 12.8 minutes. TOTAL CONTRAST: 110 mL. IMPRESSION: 1. Multivessel obstructive coronary artery disease involving 100% occlusion of the patient's LAD, right coronary artery and then only circ continuation AV groove is still open. 2. Patent GR to LAD. 3. Occluded saphenous vein graft further identified x2 and additionally it appeared that there was a graft that had stents in it which was not cannulated and had no flow, likely 100% occluded as well. RECOMMENDATIONS: In light of procedure and findings at this time would: 1. Maximize medical management. 2. Aggressive risk factor reduction. 3. Continue hypothermia. 4. Patient with pneumothorax and therefore undergoing a chest tube placement. 5. Obtain a 2D echo. 6. Trend the patient's cardiac enzymes. Dictated By: CASIE LUNDBERG/JANETT Conf#: [id number] DID#: [id number] CC: NATACHA AQUINO; MALIK PALMER MD;*EndCC* [facility]
[2017-07-08] MEDS ORDERED: PANTOPRAZOLE 40 MG INJ IV SCH (06:00)
[2017-07-08 06:13] LABS: BASOPHILS % 0.2 % (0.0-2.0); EOSINOPHILS % 0.1 % (0.0-7.0); HEMATOCRIT 48.9 % (42.0-52.0); HEMOGLOBIN 16.1 g/dl (14.0-18.0); LYMPHOCYTES % 10.3 % (15.0-51.0); MEAN CORPUSCULAR HEMOGLOBIN 30.2 pg (29.0-33.0); MEAN CORPUSCULAR HGB CONC 32.9 g/dl (32.0-37.0); MEAN CORPUSCULAR VOLUME 91.7 fl (82.0-101.0); MEAN PLATELET VOLUME 11.1 fl (7.4-10.4); MONOCYTE # 0.4 10^3/ul (0.3-0.9); MONOCYTES % 3.6 % (0.0-11.0); NEUTROPHIL # 8.5 10^3/ul (1.6-7.5); NEUTROPHILS % 85.6 % (39.0-77.0); PLATELET COUNT 129 10^3/UL (140-415); POSITIVE DIFF @See below; RED BLOOD COUNT 5.33 10^6/ul (4.70-6.10); RED CELL DISTRIBUTION WIDTH 13.7 % (11.5-14.5); WHITE BLOOD COUNT 9.9 10^3/ul (4.8-10.8)
[2017-07-08 06:30] LABS: INR 1.05; PROTIME 13.7 Sec (12.2-14.2); PT RATIO 1.1
[2017-07-08 06:31] LABS: PARTIAL THROMBOPLASTIN TIME 36.4 Sec (25.0-35.0)
[2017-07-08 06:34] LABS: AADO2 Arterial 570.8 mmHg (7.0-24.0); Allen Test ACCEPTAB; Arterial Base Excess -5.1 mmol/L (-3.0-3); Arterial COHb 0.3 % (0.0-3.0); Arterial Fraction of Oxyhgb 95.8 % (93.0-99.0); Arterial HCO3 22.2 mmol/L (22.0-26.0); Arterial MetHb 0.3 % (0.0-1.5); Arterial Total Hemglobin 17.7 g/dl (12.0-18.0); Blood Gas Low PEEP Setting 0 cmH2O; MODE VENT - AC
[2017-07-08 06:45] LABS: CHOL/HDL RATIO 2.9 RATIO
[2017-07-08 06:50] LABS: CK-MB 24.2 ng/ml (0.0-2.4); TROPONIN-I 0.793 ng/ml (0.00-0.12)
[2017-07-08 06:53] LABS: CALCIUM 7.8 mg/dl (8.4-10.2); CREATININE 0.61 mg/dl (0.61-1.24); MAGNESIUM 1.7 mg/dl (1.7-2.5); PHOSPHORUS 2.9 mg/dl (2.5-4.9); POTASSIUM 3.8 mmol/L (3.5-5.1)
[2017-07-08 06:56] LABS: T3 UPTAKE 34.9 % (23.5-40.5)
--- NOTE | 2017-07-08 07:03 | CONS ---
DATE OF ADMISSION: 07/07/2017 DATE OF CONSULTATION: 07/07/2017 REASON FOR CONSULTATION: Cardiac arrest, positive troponin, abnormal electrocardiogram. REQUESTING PHYSICIAN: Dr. Haines from the emergency department. HISTORY OF PRESENT ILLNESS: Mr. Sen is a 71-year-old male with history of hypertension, dyslipidemia, coronary artery disease, status post coronary bypass graft surgery approximately 10 years prior per family, who had been at the gym and was found down. Per report, initial rhythm was ventricular fibrillation arrest. The patient received ACLS protocol with epinephrine and shocks, returning him to a perfusing rhythm, was intubated in the field and brought to the Emergency Department here at [facility]. Initially upon arrival, temperature 98.7, blood pressure 132/94, pulse 75, respiratory rate 18, saturating 94% on 100%. Patient's labs were notable for a sodium of 149, potassium 5.7, creatinine 1.1, BUN of 17, AST 105, ALT 102. Troponin 1.22. lipase 77. INR initially 1.91 and then 1.12. White blood cell count of 19, hemoglobin 15.1, platelet count of 189. ABG revealing a pH of 7.256, a PaO2 of 100.5, pCO2 of 39. The patient underwent a chest x-ray revealing right catheter with tip in the region, status post placement of endotracheal tube, low lung volumes. A followup chest x-ray then, revealing a left pneumothorax measuring approximately 40%, and a KUB that revealed nasogastric tube in the stomach, mild degenerative changes in the spine. The patient's electrocardiogram had initially revealed sinus rhythm with diffuse inferolateral ST depressions. Patient was placed on hypothermic protocol and has been brought to the cardiac process laboratory specialist in order to assess for the possibility of recurrent significant obstructive coronary artery disease lending to symptoms of cardiac arrest, positive troponin, EKG. PAST MEDICAL HISTORY: As above in HPI. MEDICATIONS CURRENTLY IN HOSPITAL: 1. Tylenol. 2. Lovenox. 3. Protonix. 4. IV fluid hydration. 5. Insulin. 6. P.r.n. Tylenol. 7. P.r.n. Demerol. 8. P.r.n. meperidine. 9. Vecuronium. 10. Cefepime. ALLERGIES: NO KNOWN DRUG ALLERGIES. SOCIAL HISTORY: Unknown. FAMILY HISTORY: Unknown. REVIEW OF SYSTEMS: Limited due to patient being encephalopathic status post cardiac arrest. CONSTITUTIONAL: No current fevers. PULMONARY: In respiratory failure status post intubation. GASTROINTESTINAL: No vomiting. GENITOURINARY: No hematuria. MUSCULOSKELETAL: Degenerative joint disease. PSYCHIATRIC: No documented psych history. NEUROLOGIC: Encephalopathy. CARDIOVASCULAR: Status post cardiac arrest, positive troponin, CABG. HEME: Leukocytosis. ENDOCRINE: Possible diabetes mellitus by medications. PHYSICAL EXAMINATION: VITAL SIGNS: Temperature 97.2, blood pressure most recently 131/85, pulse 73, respirations 16, satting ____%. GENERAL: The patient is encephalopathic, sedated. NECK: JVP of 8-9 cm of water. CHEST: Upper airway transmitted rhonchorous sounds. HEART: Regular rate and rhythm. Normal S1, S2, I/ systolic murmur. ABDOMEN: Positive bowel sounds, soft. EXTREMITIES: No edema, 1+ pulses bilaterally posterior tibial. LABORATORIES: As above in HPI with no further labs for my review at this time. IMAGING STUDIES: No further imaging studies for my review at this time. ECG: As above in HPI. No further electrocardiograms for my review at this time. IMPRESSION: 1. Cardiac arrest with initial rhythm of ventricular fibrillation per report. 2. Positive troponin, status post cardiac arrest. 3. abnl ecg, status post cardiac arrest. 4. Hypertension. 5. History of coronary artery disease, status post coronary bypass graft surgery. 6. Respiratory failure, status post intubation. 7. Leukocytosis. 8. Possible diabetes mellitus. RECOMMENDATIONS: 1. At this time, the patient will undergo left heart catheterization with possible PTCA and stent placement. 2. Continue the patient's current heparin protocol. 3. The patient should undergo a chest tube placement for pneumothorax FAITH. 4. Follow the patient's mental status status closely with ongoing neurologic followup. 5. Continue the patient's antibiotics and follow up all culture data. 6. Check a 2D echo to further assess patient's ejection fraction, wall motion and any major valve abnormalities. Dictated By: CASIE LUNDBERG/JANETT Conf#: [id number] DID#: [id number] MTDD
[2017-07-08 07:08] LABS: AMYLASE 49 U/L (11-123)
--- NOTE | 2017-07-08 07:47 | RADRPT ---
PROCEDURE: XR Chest. CLINICAL INDICATION: Respiratory failure. TECHNIQUE: Single portable view of the chest was obtained COMPARISON: 07/07/2017. FINDINGS: An endotracheal tube terminates 3.7 cm above the jim. A nasogastric tube tip is located within th e proximal stomach. A right subclavian central venous catheter tip overlies the atriocaval junction. There is no evidence of a pneumothorax. Low lung volumes with associated lower lobe compressive changes. There is stable cardiomegaly. Media n sternotomy and post CABG changes are again demonstrated. There is elevation of the right hemidiaph ragm. Unchanged bibasilar atelectasis or pneumonia and underlying left-sided pleural effusion presen t. Interval decreased left lateral chest wall subcutaneous emphysema. IMPRESSION: 1. Stable position of support lines and tubes. 2. Unchanged bibasilar atelectasis or pneumonia. 3. Small left-sided pleural effusion. 4. Decreased left lateral subcutaneous emphysema. RPTAT: HRSR Physician Manny Date Time Electronically viewed and signed by Physician Manny on 07/08/2017 07:47 RR/
[2017-07-08 07:58] LABS: METAMYELOCYTES %M 1 % (0-0); MONOCYTES % (M) 2 % (0-11); PLATELET ESTIMATE DECREASED; POLYCHROMASIA 1+ (0-0)
[2017-07-08] MEDS: ASPIRIN (EC) 81 MG TAB PO SCH (09:00)
[2017-07-08] MEDS: ENOXAPARIN 40 MG/0.4 ML SYG SC SCH (09:00)
--- NOTE | 2017-07-08 09:12 | CONS ---
Date/Time of Note Date/Time of Note DATE: 07/08/17 TIME: 09:10 Consult Date/Type/Reason Admit Date/Time Jul 07, 2017 at 16:46 Initial Consult Date Type of Consultation: Pulmonary Subjective Patient continues hypothermia protocol. Status post cardiac catheterization. Objective Vital Signs Date Time Temp Pulse Resp B/P Pulse Ox O2 Delivery O2 Flow Rate FiO2 07/08/17 08:00 100 07/08/17 08:00 92.0 65 21 142/91 100 07/08/17 06:30 Mechanical Ventilator Intake and Output 07/07/17 07/07/17 07/08/17 14:59 22:59 06:59 Intake Total 28.81 ml 816.26 ml Output Total 900 ml 795 ml Balance -871.19 ml 21.26 ml Exam PHYSICAL EXAMINATION: GENERAL: Well-nourished, well-developed gentleman, intubated on mechanical ventilation, appears comfortable at rest. VITAL SIGNS: As above. NECK: Supple. No JVD or lymphadenopathy. CARDIAC: S1, S2, no added sounds or murmurs. CHEST: Diminished air entry bilaterally. ABDOMEN: Soft, nontender. No guarding or rebound. EXTREMITIES: No cyanosis, clubbing, edema. NEUROLOGIC: Unable to assess. Results/Medications Result Diagram: 07/08/17 0600 07/08/17 0600 Results 24 hrs Laboratory Tests Test 07/07/17 13:42 07/07/17 13:50 07/07/17 14:40 07/07/17 15:30 Blood Gas Specimen Source Blood arterial Arterial Blood Date Drawn 07/07/2017 2:48:11 PM Arterial Blood pH (Temp corrected) 7.256 *L Arterial Blood pCO2 (Temp correct) 39.5 Arterial Blood pO2 (Temp corrected) 100.5 H Arterial Blood HCO3 17.4 L Arterial Blood Base Excess -9.5 L Arterial Blood Oxygen Saturation 96.9 Ilan Test ACCEPTAB Arterial Blood Gas Puncture Site Right Radial Arterial Blood Carboxyhemoglobin 0.1 Arterial Blood Methemoglobin 0.4 Blood Gas A-a O2 Differential 575.6 H Oxyhemoglobin Percent 96.4 Total Hemoglobin 15.8 Blood Gas Temperature 36.0 Blood Gas Respiration Rate 16.0 Blood Gas Actual Respiration Rate 34 Blood Gas Modality VENT - AC FiO2 100.0 Blood Gas Tidal Volume 500.0 Blood Gas Critical Value Read Back OLGA Purdy Blood Gas Notified Whom [facility] Blood Gas Notified Time 07/07/2017 2:53:50 PM White Blood Count 7.3 19.0 #H Red Blood Count 2.32 L 4.84 # Hemoglobin 7.4 L 15.1 # Hematocrit 23.2 L 46.2 # Mean Corpuscular Volume 100.0 95.5 Mean Corpuscular Hemoglobin 31.9 31.2 Mean Corpuscular Hemoglobin Concent 31.9 L 32.7 Red Cell Distribution Width 13.5 13.5 Platelet Count 95 L 189 # Mean Platelet Volume 12.2 H 11.4 H Neutrophils % 36.7 L 81.3 H Lymphocytes % 55.9 H 13.5 L Monocytes % 4.0 3.2 Eosinophils % 1.7 0.6 Basophils % 0.3 0.3 Nucleated Red Blood Cells % 0.0 0.0 Neutrophils # 2.7 15.5 H Lymphocytes # 4.1 H 2.6 Monocytes # 0.3 0.6 Eosinophils # 0.1 0.1 Basophils # 0.0 0.1 Nucleated Red Blood Cells # 0.0 0.0 Prothrombin Time 22.1 H Prothrombin Time Ratio 1.7 INR International Normalized Ratio 1.91 Activated Partial Thromboplast Time 42.2 H Sodium Level 148 H 141 Potassium Level 1.5 *L 5.7 #H Chloride Level 131 H 109 # Carbon Dioxide Level 8 *L 22 # Anion Gap 11 16 Blood Urea Nitrogen 7 17 # Creatinine 0.45 L 1.17 Glucose Level 104 186 Calcium Level 2.6 *L 8.2 #L Phosphorus Level 2.6 Magnesium Level 0.8 *L 1.8 Total Bilirubin 0.1 L 0.6 Direct Bilirubin 0.00 0.00 Indirect Bilirubin 0.1 0.6 Aspartate Amino Transf (AST/SGOT) 28 105 #H Alanine Aminotransferase (ALT/SGPT) 35 102 H Alkaline Phosphatase 36 L 116 # Troponin I < 0.012 B-Type Natriuretic Peptide 74 Total Protein 2.3 L 6.6 # Albumin 1.1 L 3.4 # Globulin 1.20 L 3.20 Albumin/Globulin Ratio 0.91 1.06 Urine Color YELLOW Urine Clarity CLOUDY A Urine pH 5.0 Urine Specific [place] 1.017 Urine Ketones NEGATIVE Urine Nitrite NEGATIVE Urine Bilirubin NEGATIVE Urine Urobilinogen NEGATIVE Urine Leukocyte Esterase NEGATIVE Urine Microscopic RBC 64 H Urine Microscopic WBC 7 H Urine Squamous Epithelial Cells FEW Urine Mucus MODERATE Urine Hemoglobin 2+ H Urine Glucose 1+ H Urine Total Protein 2+ H Test 07/07/17 17:56 07/07/17 17:57 07/07/17 21:20 07/07/17 23:06 Bedside Glucose 161 152 158 White Blood Count 17.1 H Red Blood Count 5.21 Hemoglobin 16.3 Hematocrit 49.0 Mean Corpuscular Volume 94.0 Mean Corpuscular Hemoglobin 31.3 Mean Corpuscular Hemoglobin Concent 33.3 Red Cell Distribution Width 13.5 Platelet Count 195 Mean Platelet Volume 11.2 H Neutrophils % 84.3 H Lymphocytes % 9.2 L Monocytes % 5.5 Eosinophils % 0.2 Basophils % 0.3 Nucleated Red Blood Cells % 0.0 Neutrophils # 14.4 H Lymphocytes # 1.6 Monocytes # 0.9 Eosinophils # 0.0 Basophils # 0.1 Nucleated Red Blood Cells # 0.0 Prothrombin Time 14.4 #H Prothrombin Time Ratio 1.1 INR International Normalized Ratio 1.12 Activated Partial Thromboplast Time 35.0 Fibrinogen 429.0 Sodium Level 141 Potassium Level 4.0 Chloride Level 109 Carbon Dioxide Level 20 L Anion Gap 16 Blood Urea Nitrogen 17 Creatinine 0.75 Glucose Level 146 # Calcium Level 7.8 L Phosphorus Level 3.7 Magnesium Level 1.8 Troponin I 1.220 *H Amylase Level 88 Lipase 70 Test 07/07/17 23:55 07/08/17 00:01 07/08/17 00:53 07/08/17 01:10 Bedside Glucose 150 128 Blood Gas Specimen Source Blood arterial Arterial Blood Date Drawn 07/08/2017 12:00:23 AM Arterial Blood pH (Temp corrected) 7.327 L Arterial Blood pCO2 (Temp correct) 35.3 Arterial Blood pO2 (Temp corrected) 71.4 L Arterial Blood HCO3 18.7 L Arterial Blood Base Excess -7.4 L Arterial Blood Oxygen Saturation 95.7 Ilan Test ACCEPTAB Arterial Blood Gas Puncture Site Right Radial Arterial Blood Carboxyhemoglobin 0.3 Arterial Blood Methemoglobin 0.2 Blood Gas A-a O2 Differential 613.5 H Oxyhemoglobin Percent 95.2 Total Hemoglobin 17.6 Blood Gas Temperature 34.0 Blood Gas Respiration Rate 16.0 Blood Gas Actual Respiration Rate 16 Blood Gas Modality VENT - AC FiO2 100.0 Blood Gas Tidal Volume 500.0 Blood Gas Low PEEP Setting 0 Blood Gas Critical Value Read Back SANJIV RN Blood Gas Notified Whom MA Blood Gas Notified Time 07/08/2017 12:15:00 AM White Blood Count 10.8 # Red Blood Count 5.25 Hemoglobin 16.3 Hematocrit 48.4 Mean Corpuscular Volume 92.2 Mean Corpuscular Hemoglobin 31.0 Mean Corpuscular Hemoglobin Concent 33.7 Red Cell Distribution Width 13.4 Platelet Count 158 Mean Platelet Volume 11.1 H Neutrophils % 83.3 H Lymphocytes % 11.2 L Monocytes % 4.7 Eosinophils % 0.2 Basophils % 0.3 Nucleated Red Blood Cells % 0.0 Neutrophils # 9.0 H Lymphocytes # 1.2 Monocytes # 0.5 Eosinophils # 0.0 Basophils # 0.0 Nucleated Red Blood Cells # 0.0 Prothrombin Time 13.4 Prothrombin Time Ratio 1.0 INR International Normalized Ratio 1.02 Activated Partial Thromboplast Time 36.6 H Fibrinogen 431.0 Sodium Level 138 Potassium Level 3.8 Chloride Level 106 Carbon Dioxide Level 25 Anion Gap 11 Blood Urea Nitrogen 14 Creatinine 0.63 Glucose Level 137 Calcium Level 7.9 L Phosphorus Level 3.1 Magnesium Level 1.7 Creatine Kinase 2103 H Creatine Kinase Index 0.9 Creatinine Kinase MB (Mass) 18.50 H Troponin I 1.210 *H Amylase Level 59 Lipase 30 Test 07/08/17 02:08 07/08/17 03:01 07/08/17 04:17 07/08/17 05:25 Bedside Glucose 166 139 144 133 Test 07/08/17 06:00 07/08/17 06:20 07/08/17 07:06 07/08/17 07:59 White Blood Count 9.9 Red Blood Count 5.33 Hemoglobin 16.1 Hematocrit 48.9 Mean Corpuscular Volume 91.7 Mean Corpuscular Hemoglobin 30.2 Mean Corpuscular Hemoglobin Concent 32.9 Red Cell Distribution Width 13.7 Platelet Count 129 L Mean Platelet Volume 11.1 H Neutrophils % 85.6 H Segmented Neutrophils % (Manual) 58 Band Neutrophils % (Manual) 25 H Lymphocytes % 10.3 L Lymphocytes % (Manual) 14 L Monocytes % 3.6 Monocytes % (Manual) 2 Eosinophils % 0.1 Basophils % 0.2 Metamyelocytes % (manual) 1 H Nucleated Red Blood Cells % 0.0 Neutrophils # 8.5 H Neutrophils # (Manual) 6.0 Band Neutrophils # 2.4 H Absolute Lymphocytes (Manual) 1.3 Lymphocytes # 1.0 Monocytes # 0.4 Absolute Monocytes (Manual) 0.1 L Eosinophils # 0.0 Basophils # 0.0 Metamyelocytes # 0.0 Nucleated Red Blood Cells # 0.0 Platelet Estimate DECREASED Polychromasia 1+ Prothrombin Time 13.7 Prothrombin Time Ratio 1.1 INR International Normalized Ratio 1.05 Activated Partial Thromboplast Time 36.4 H Fibrinogen 438.0 Blood Gas Specimen Source Blood arterial Arterial Blood Date Drawn 07/08/2017 6:22:21 AM Arterial Blood pH (Temp corrected) 7.274 *L Arterial Blood pCO2 (Temp correct) 49.1 H Arterial Blood pO2 (Temp corrected) 93.1 H Arterial Blood HCO3 22.2 Arterial Blood Base Excess -5.1 L Arterial Blood Oxygen Saturation 96.4 Ilan Test ACCEPTAB Arterial Blood Gas Puncture Site Right Radial Arterial Blood Carboxyhemoglobin 0.3 Arterial Blood Methemoglobin 0.3 Blood Gas A-a O2 Differential 570.8 H Oxyhemoglobin Percent 95.8 Total Hemoglobin 17.7 Blood Gas Temperature 37.0 Blood Gas Respiration Rate 16.0 Blood Gas Actual Respiration Rate 16 Blood Gas Modality VENT - AC FiO2 100.0 Blood Gas Tidal Volume 500.0 Blood Gas Low PEEP Setting 0 Blood Gas Inspiratory Pressure 20.0 Blood Gas Critical Value Read Back OCTAVIO,S. R.N. Blood Gas Notified Whom JHOANA COMPLIANCE ADMINISTRATOR Blood Gas Notified Time 07/08/2017 6:34:05 AM Sodium Level 137 Potassium Level 3.8 Chloride Level 105 Carbon Dioxide Level 25 Anion Gap 11 Blood Urea Nitrogen 14 Creatinine 0.61 Glucose Level 153 Hemoglobin A1c 6.0 H Calcium Level 7.8 L Phosphorus Level 2.9 Magnesium Level 1.7 Creatine Kinase 2413 H Creatine Kinase Index 1.0 Creatinine Kinase MB (Mass) 24.20 H Troponin I 0.793 *H Triglycerides Level 131 Cholesterol Level 115 LDL Cholesterol, Calculated 50 HDL Cholesterol 39 Cholesterol/HDL Ratio 2.9 Amylase Level 49 Lipase 20 L Free Thyroxine Index 3.59 Thyroxine (T4) 10.3 Triiodothyronine (T3) Uptake 34.9 Bedside Glucose 163 154 159 Medications Current Medications Cefepime HCl 50 ml @ 100 mls/hr Q12 IVPB Last administered on 07/08/17t 00:17 ; Admin Dose 100 MLS/HR; Start 07/07/17 at 15:30 Vecuronium [place]/Dextrose (Norcuron/D5W) 100 ml @ 5.7 mls/hr [id number] IV Last administered on 07/07/17 17:50; Admin Dose 4.8 MLS/HR; Start 07/07/17 at 16:58 Acetaminophen (Tylenol Supp) 650 mg Q4H PRN CO TEMP > 37C; Start 07/07/17 at 17 :00 Acetaminophen (Tylenol Liquid) 650 mg Q4H PRN PO TEMP > 37C; Start 07/07/17 at 17:00 Acetaminophen (Tylenol Supp) 500 mg Q6H CO ; Start 07/08/17 at 17:00 Acetaminophen (Tylenol Liquid) 500 mg Q6H PO ; Start 07/08/17 at 17:00 Meperidine HCl (Demerol) 12.5 mg Q4H PRN IV POST OPERATIVE SHIVERING; Start at 17:00 Meperidine HCl (Demerol) 25 mg Q4H PRN IV POST OPERATIVE SHIVERING; Start 07/07 at 17:00 Eye Lubricant (Akwa Oint) 1 applic Q6 BOTH EYES Last administered on 07/08/17 05:15; Admin Dose 1 APPLIC; Start 07/07/17 at 18:00 Eye Lubricant (Artificial Tears Oph) 2 drop Q6 BOTH EYES Last administered on 07/08/17 05:14; Admin Dose 2 DROP; Start 07/07/17 at 18:00 Diagnostic Test (Pha) (Accu-Chek) 1 ea Q1H XX Last administered on 07/08/17 07 :38; Admin Dose 1 EA; Start 07/07/17 at 17:00 Dextrose (D50w Syringe) 25 ml Q15M PRN IV Till BS 80 mg/dL or above x2; Start 07/07/17 at 17:00 Dextrose (D50w Syringe) 50 ml Q15M PRN IV Till BS 80 mg/dL or above x2; Start 07/07/17 at 17:00 Acetaminophen (Tylenol Tab) 650 mg Q6H PRN PO PAIN LEVEL 1-3 OR FEVER; Start 07/07/17 at 17:30 Acetaminophen/ Hydrocodone Bitart (Pelzer (5/325)) 1 tab Q6H PRN PO MODERATE PAIN LEVEL 4-6; Start 07/07/17 at 17:30 Morphine Sulfate (morphine) 2 mg Q4H PRN IV SEVERE PAIN LEVEL 7-10; Start 07/07 at 17:30 Pantoprazole (Protonix Iv) 40 mg DAILY@06 IV Last administered on 07/08/17 05: 14; Admin Dose 40 MG; Start 07/08/17 at 06:00 Enoxaparin Sodium (Lovenox) 40 mg DAILY SC ; Start 07/08/17 at 09:00 Miscellaneous Information (* Miscellaneous Pharmacy Order) Hold all Metformin ... ONCE XX Last administered on 07/07/17 21:00; Admin Dose 1 EA; Start at 21:00; Stop 07/09/17 at 20:59 Aspirin 81 mg 81 mg DAILY PO ; Start 07/08/17 at 09:00 Sodium Chloride 1,000 ml @ 75 mls/hr [id number] IV ; Start 07/07/17 at 20:43; Stop 07/08/17 at 10:02 Dextrose/Sodium Chloride (D5-1/2ns) 1,000 ml @ 75 mls/hr [id number] IV Last administered on 07/07/17 21:54; Admin Dose 75 MLS/HR; Start 07/07/17 at 21:30 Assessment/Plan Chief Complaint/Hosp Course IMPRESSION AND PLAN: 1. Cardiopulmonary arrest. 2. Likely ventricular arrhythmia. 3. Cardiac recommendations post cath 4. Possible aspiration pneumonia. 5. Metabolic acidosis. RECOMMENDATIONS: 1. Continue hypothermia protocol. 2. Cardiology recommendation. 3. Antibiotics for aspiration pneumonia. 4. DVT and GI prophylaxis. Problems: KENYETTA WHITT MD, [facility] Jul 08, 2017 09:12
[2017-07-08] MEDS: VECURONIUM 100 MG in DEXTROSE 5% 100 ML IV SCH (10:31)
[2017-07-08] MEDS: DEXTROSE 5%-0.45% NACL 1,000 ML IV SCH ×2 (10:55→23:45)
[2017-07-08 12:52] LABS: BASOPHILS % 0.2 % (0.0-2.0); EOSINOPHILS % 0.1 % (0.0-7.0); HEMATOCRIT 47.9 % (42.0-52.0); HEMOGLOBIN 16.4 g/dl (14.0-18.0); LYMPHOCYTES # 0.8 10^3/ul (0.8-2.9); LYMPHOCYTES % 8.8 % (15.0-51.0); MEAN CORPUSCULAR HGB CONC 34.2 g/dl (32.0-37.0); MEAN CORPUSCULAR VOLUME 90.5 fl (82.0-101.0); MEAN PLATELET VOLUME 11.4 fl (7.4-10.4); MONOCYTE # 0.3 10^3/ul (0.3-0.9); MONOCYTES % 3.6 % (0.0-11.0); NEUTROPHIL # 7.8 10^3/ul (1.6-7.5); NEUTROPHILS % 87.1 % (39.0-77.0); PLATELET COUNT 133 10^3/UL (140-415); POSITIVE DIFF @See below; RED BLOOD COUNT 5.29 10^6/ul (4.70-6.10); RED CELL DISTRIBUTION WIDTH 13.3 % (11.5-14.5)
[2017-07-08 13:02] LABS: INR 1.05; PROTIME 13.7 Sec (12.2-14.2); PT RATIO 1.1
--- NOTE | 2017-07-08 13:02 | RADRPT ---
Vent Rate: 76 bpm RR Interval: 0 msec [place] Interval: 244 msec QRS Duration: 94 msec QT Interval: 466 msec QTC Interval: 524 msec P-R-T Gates: 59 - 51 - 50 degrees Sinus rhythm with 1st degree AV block with occasional premature ventricular complexes Low voltage QRS Prolonged QT Abnormal ECG Electronically Signed By: Win Lowery [id number]
--- NOTE | 2017-07-08 13:03 | RADRPT ---
Vent Rate: 65 bpm RR Interval: 0 msec [place] Interval: 250 msec QRS Duration: 104 msec QT Interval: 534 msec QTC Interval: 555 msec P-R-T [place]: 0 - 29 - 51 degrees Sinus rhythm with 1st degree AV block with premature supraventricular complexes Prolonged QT Abnormal ECG Electronically Signed By: Win Lowery [id number]
[2017-07-08 13:04] LABS: AADO2 Arterial 531.9 mmHg (7.0-24.0); Allen Test ACCEPTAB; Arterial Base Excess -4.5 mmol/L (-3.0-3); Arterial COHb 0.3 % (0.0-3.0); Arterial Fraction of Oxyhgb 97.4 % (93.0-99.0); Arterial HCO3 20.2 mmol/L (22.0-26.0); Arterial MetHb 0.4 % (0.0-1.5); Arterial Total Hemglobin 17.8 g/dl (12.0-18.0); Blood Gas Low PEEP Setting 0 cmH2O; MODE VENT - AC
[2017-07-08 13:04] LABS: ANION GAP 11 (8-16); BLOOD UREA NITROGEN 12 mg/dl (7-20); CARBON DIOXIDE 25 mmol/L (21-31); CHLORIDE 103 mmol/L (97-110); CREATININE 0.54 mg/dl (0.61-1.24); GLUCOSE 140 mg/dl (70-220); MAGNESIUM 1.7 mg/dl (1.7-2.5); PHOSPHORUS 2.9 mg/dl (2.5-4.9); POTASSIUM 3.7 mmol/L (3.5-5.1); SODIUM 135 mmol/L (135-144)
[2017-07-08 13:16] LABS: AMYLASE < 30 U/L (11-123)
--- NOTE | 2017-07-08 13:28 | CONS ---
Date/Time of Note Date/Time of Note DATE: 07/08/17 TIME: 13:18 Assessment/Plan Assessment/Plan Chief Complaint/Hosp Course IMPRESSION: 1. Cardiac arrest with initial rhythm of ventricular fibrillation per report now post-op s/p LHC revealing 3 vessel [place] obstructive disease with occluded svg x 2 and patent GR to LAD 2. Positive troponin, status post cardiac arrest-downtrending 3. Abnormal ECG, status post cardiac arrest. 4. Hypertension. 5. History of coronary artery disease, status post coronary bypass graft surgery. 6. Respiratory failure, status post intubation. 7. Leukocytosis. 8. Possible diabetes mellitus. Recc: -Tele -serial ecg's -Continuie asa -will f/u echo -Continue hypothermia protocol -Follow MS closely Problems: Consultation Date/Type/Reason Admit Date/Time Jul 07, 2017 at 16:46 Initial Consult Date 07/07/2017 Type of Consultation: cardiology Reason for Consultation cardiac arrest Referring Provider: PRINCE HASSAN Exam/Review of Systems Vital Signs Vitals Vital Signs Date Time Temp Pulse Resp B/P Pulse Ox O2 Delivery O2 Flow Rate FiO2 07/08/17 12:00 56 07/08/17 10:53 20 100 90 07/08/17 10:00 92.4 126/82 07/08/17 06:30 Mechanical Ventilator Intake and Output 07/07/17 07/07/17 07/08/17 15:00 23:00 07:00 Intake Total 129.31 ml 807.96 ml Output Total 1050 ml 720 ml Balance -920.69 ml 87.96 ml Exam Review of Systems: CONSTITUTIONAL: No fevers, chills. PULMONARY: No sob CARDIOVASCULAR: No chest pain/palpitations GASTROINTESTINAL: No nausea/vomiting. GENITOURINARY: No hematuria/dysuria. MUSCULOSKELETAL: No myagias/arthalgias. PSYCHIATRIC: The patient denies depression. NEUROLOGIC: No weakness Constitutional: other (sedated/nonresponsive) Psych: no complaints Head: normocephalic ENMT: mucosa pink and moist Neck: jvd (9 cm water), supple Respiratory: other (upper airway rhocherous sounds) Cardiovascular: regular rate and rhythm Gastrointestinal: non-tender, soft Musculoskeletal: muscle tone (normsal) Extremities: edema (none) Neurological: other (No focal deficits) Results Result Diagram: 07/08/17 1224 07/08/17 1224 Results 24 hrs Laboratory Tests Test 07/07/17 13:42 07/07/17 13:50 07/07/17 14:40 07/07/17 15:30 Blood Gas Specimen Source Blood arterial Arterial Blood Date Drawn 07/07/2017 2:48:11 PM Arterial Blood pH (Temp corrected) 7.256 *L Arterial Blood pCO2 (Temp correct) 39.5 Arterial Blood pO2 (Temp corrected) 100.5 H Arterial Blood HCO3 17.4 L Arterial Blood Base Excess -9.5 L Arterial Blood Oxygen Saturation 96.9 Ilan Test ACCEPTAB Arterial Blood Gas Puncture Site Right Radial Arterial Blood Carboxyhemoglobin 0.1 Arterial Blood Methemoglobin 0.4 Blood Gas A-a O2 Differential 575.6 H Oxyhemoglobin Percent 96.4 Total Hemoglobin 15.8 Blood Gas Temperature 36.0 Blood Gas Respiration Rate 16.0 Blood Gas Actual Respiration Rate 34 Blood Gas Modality VENT - AC FiO2 100.0 Blood Gas Tidal Volume 500.0 Blood Gas Critical Value Read Back OLGA Purdy Blood Gas Notified Whom [facility] Blood Gas Notified Time 07/07/2017 2:53:50 PM White Blood Count 7.3 19.0 #H Red Blood Count 2.32 L 4.84 # Hemoglobin 7.4 L 15.1 # Hematocrit 23.2 L 46.2 # Mean Corpuscular Volume 100.0 95.5 Mean Corpuscular Hemoglobin 31.9 31.2 Mean Corpuscular Hemoglobin Concent 31.9 L 32.7 Red Cell Distribution Width 13.5 13.5 Platelet Count 95 L 189 # Mean Platelet Volume 12.2 H 11.4 H Neutrophils % 36.7 L 81.3 H Lymphocytes % 55.9 H 13.5 L Monocytes % 4.0 3.2 Eosinophils % 1.7 0.6 Basophils % 0.3 0.3 Nucleated Red Blood Cells % 0.0 0.0 Neutrophils # 2.7 15.5 H Lymphocytes # 4.1 H 2.6 Monocytes # 0.3 0.6 Eosinophils # 0.1 0.1 Basophils # 0.0 0.1 Nucleated Red Blood Cells # 0.0 0.0 Prothrombin Time 22.1 H Prothrombin Time Ratio 1.7 INR International Normalized Ratio 1.91 Activated Partial Thromboplast Time 42.2 H Sodium Level 148 H 141 Potassium Level 1.5 *L 5.7 #H Chloride Level 131 H 109 # Carbon Dioxide Level 8 *L 22 # Anion Gap 11 16 Blood Urea Nitrogen 7 17 # Creatinine 0.45 L 1.17 Glucose Level 104 186 Calcium Level 2.6 *L 8.2 #L Phosphorus Level 2.6 Magnesium Level 0.8 *L 1.8 Total Bilirubin 0.1 L 0.6 Direct Bilirubin 0.00 0.00 Indirect Bilirubin 0.1 0.6 Aspartate Amino Transf (AST/SGOT) 28 105 #H Alanine Aminotransferase (ALT/SGPT) 35 102 H Alkaline Phosphatase 36 L 116 # Troponin I < 0.012 B-Type Natriuretic Peptide 74 Total Protein 2.3 L 6.6 # Albumin 1.1 L 3.4 # Globulin 1.20 L 3.20 Albumin/Globulin Ratio 0.91 1.06 Urine Color YELLOW Urine Clarity CLOUDY A Urine pH 5.0 Urine Specific [place] 1.017 Urine Ketones NEGATIVE Urine Nitrite NEGATIVE Urine Bilirubin NEGATIVE Urine Urobilinogen NEGATIVE Urine Leukocyte Esterase NEGATIVE Urine Microscopic RBC 64 H Urine Microscopic WBC 7 H Urine Squamous Epithelial Cells FEW Urine Mucus MODERATE Urine Hemoglobin 2+ H Urine Glucose 1+ H Urine Total Protein 2+ H Test 07/07/17 17:56 07/07/17 17:57 07/07/17 21:20 07/07/17 23:06 Bedside Glucose 161 152 158 White Blood Count 17.1 H Red Blood Count 5.21 Hemoglobin 16.3 Hematocrit 49.0 Mean Corpuscular Volume 94.0 Mean Corpuscular Hemoglobin 31.3 Mean Corpuscular Hemoglobin Concent 33.3 Red Cell Distribution Width 13.5 Platelet Count 195 Mean Platelet Volume 11.2 H Neutrophils % 84.3 H Lymphocytes % 9.2 L Monocytes % 5.5 Eosinophils % 0.2 Basophils % 0.3 Nucleated Red Blood Cells % 0.0 Neutrophils # 14.4 H Lymphocytes # 1.6 Monocytes # 0.9 Eosinophils # 0.0 Basophils # 0.1 Nucleated Red Blood Cells # 0.0 Prothrombin Time 14.4 #H Prothrombin Time Ratio 1.1 INR International Normalized Ratio 1.12 Activated Partial Thromboplast Time 35.0 Fibrinogen 429.0 Sodium Level 141 Potassium Level 4.0 Chloride Level 109 Carbon Dioxide Level 20 L Anion Gap 16 Blood Urea Nitrogen 17 Creatinine 0.75 Glucose Level 146 # Calcium Level 7.8 L Phosphorus Level 3.7 Magnesium Level 1.8 Troponin I 1.220 *H Amylase Level 88 Lipase 70 Test 07/07/17 23:55 07/08/17 00:01 07/08/17 00:53 07/08/17 01:10 Bedside Glucose 150 128 Blood Gas Specimen Source Blood arterial Arterial Blood Date Drawn 07/08/2017 12:00:23 AM Arterial Blood pH (Temp corrected) 7.327 L Arterial Blood pCO2 (Temp correct) 35.3 Arterial Blood pO2 (Temp corrected) 71.4 L Arterial Blood HCO3 18.7 L Arterial Blood Base Excess -7.4 L Arterial Blood Oxygen Saturation 95.7 Ilan Test ACCEPTAB Arterial Blood Gas Puncture Site Right Radial Arterial Blood Carboxyhemoglobin 0.3 Arterial Blood Methemoglobin 0.2 Blood Gas A-a O2 Differential 613.5 H Oxyhemoglobin Percent 95.2 Total Hemoglobin 17.6 Blood Gas Temperature 34.0 Blood Gas Respiration Rate 16.0 Blood Gas Actual Respiration Rate 16 Blood Gas Modality VENT - AC FiO2 100.0 Blood Gas Tidal Volume 500.0 Blood Gas Low PEEP Setting 0 Blood Gas Critical Value Read Back STEMPLE RN Blood Gas Notified Whom [facility] Blood Gas Notified Time 07/08/2017 12:15:00 AM White Blood Count 10.8 # Red Blood Count 5.25 Hemoglobin 16.3 Hematocrit 48.4 Mean Corpuscular Volume 92.2 Mean Corpuscular Hemoglobin 31.0 Mean Corpuscular Hemoglobin Concent 33.7 Red Cell Distribution Width 13.4 Platelet Count 158 Mean Platelet Volume 11.1 H Neutrophils % 83.3 H Lymphocytes % 11.2 L Monocytes % 4.7 Eosinophils % 0.2 Basophils % 0.3 Nucleated Red Blood Cells % 0.0 Neutrophils # 9.0 H Lymphocytes # 1.2 Monocytes # 0.5 Eosinophils # 0.0 Basophils # 0.0 Nucleated Red Blood Cells # 0.0 Prothrombin Time 13.4 Prothrombin Time Ratio 1.0 INR International Normalized Ratio 1.02 Activated Partial Thromboplast Time 36.6 H Fibrinogen 431.0 Sodium Level 138 Potassium Level 3.8 Chloride Level 106 Carbon Dioxide Level 25 Anion Gap 11 Blood Urea Nitrogen 14 Creatinine 0.63 Glucose Level 137 Calcium Level 7.9 L Phosphorus Level 3.1 Magnesium Level 1.7 Creatine Kinase 2103 H Creatine Kinase Index 0.9 Creatinine Kinase MB (Mass) 18.50 H Troponin I 1.210 *H Amylase Level 59 Lipase 30 Test 07/08/17 02:08 07/08/17 03:01 07/08/17 04:17 07/08/17 05:25 Bedside Glucose 166 139 144 133 Test 07/08/17 06:00 07/08/17 06:20 07/08/17 07:06 07/08/17 07:59 White Blood Count 9.9 Red Blood Count 5.33 Hemoglobin 16.1 Hematocrit 48.9 Mean Corpuscular Volume 91.7 Mean Corpuscular Hemoglobin 30.2 Mean Corpuscular Hemoglobin Concent 32.9 Red Cell Distribution Width 13.7 Platelet Count 129 L Mean Platelet Volume 11.1 H Neutrophils % 85.6 H Segmented Neutrophils % (Manual) 58 Band Neutrophils % (Manual) 25 H Lymphocytes % 10.3 L Lymphocytes % (Manual) 14 L Monocytes % 3.6 Monocytes % (Manual) 2 Eosinophils % 0.1 Basophils % 0.2 Metamyelocytes % (manual) 1 H Nucleated Red Blood Cells % 0.0 Neutrophils # 8.5 H Neutrophils # (Manual) 6.0 Band Neutrophils # 2.4 H Absolute Lymphocytes (Manual) 1.3 Lymphocytes # 1.0 Monocytes # 0.4 Absolute Monocytes (Manual) 0.1 L Eosinophils # 0.0 Basophils # 0.0 Metamyelocytes # 0.0 Nucleated Red Blood Cells # 0.0 Platelet Estimate DECREASED Polychromasia 1+ Prothrombin Time 13.7 Prothrombin Time Ratio 1.1 INR International Normalized Ratio 1.05 Activated Partial Thromboplast Time 36.4 H Fibrinogen 438.0 Blood Gas Specimen Source Blood arterial Arterial Blood Date Drawn 07/08/2017 6:22:21 AM Arterial Blood pH (Temp corrected) 7.274 *L Arterial Blood pCO2 (Temp correct) 49.1 H Arterial Blood pO2 (Temp corrected) 93.1 H Arterial Blood HCO3 22.2 Arterial Blood Base Excess -5.1 L Arterial Blood Oxygen Saturation 96.4 Ilan Test ACCEPTAB Arterial Blood Gas Puncture Site Right Radial Arterial Blood Carboxyhemoglobin 0.3 Arterial Blood Methemoglobin 0.3 Blood Gas A-a O2 Differential 570.8 H Oxyhemoglobin Percent 95.8 Total Hemoglobin 17.7 Blood Gas Temperature 37.0 Blood Gas Respiration Rate 16.0 Blood Gas Actual Respiration Rate 16 Blood Gas Modality VENT - AC FiO2 100.0 Blood Gas Tidal Volume 500.0 Blood Gas Low PEEP Setting 0 Blood Gas Inspiratory Pressure 20.0 Blood Gas Critical Value Read Back OCTAVIO,S. R.N. Blood Gas Notified Whom JHOANA THOMAS Blood Gas Notified Time 07/08/2017 6:34:05 AM Sodium Level 137 Potassium Level 3.8 Chloride Level 105 Carbon Dioxide Level 25 Anion Gap 11 Blood Urea Nitrogen 14 Creatinine 0.61 Glucose Level 153 Hemoglobin A1c 6.0 H Calcium Level 7.8 L Phosphorus Level 2.9 Magnesium Level 1.7 Creatine Kinase 2413 H Creatine Kinase Index 1.0 Creatinine Kinase MB (Mass) 24.20 H Troponin I 0.793 *H Triglycerides Level 131 Cholesterol Level 115 LDL Cholesterol, Calculated 50 HDL Cholesterol 39 Cholesterol/HDL Ratio 2.9 Amylase Level 49 Lipase 20 L Free Thyroxine Index 3.59 Thyroxine (T4) 10.3 Triiodothyronine (T3) Uptake 34.9 Bedside Glucose 163 154 159 Test 07/08/17 09:09 07/08/17 10:04 07/08/17 11:01 07/08/17 12:00 Bedside Glucose 143 150 140 Blood Gas Specimen Source Blood arterial Arterial Blood Date Drawn 07/08/2017 12:40:41 PM Arterial Blood pH (Temp corrected) 7.419 Arterial Blood pCO2 (Temp correct) 30.5 L Arterial Blood pO2 (Temp corrected) 87.7 Arterial Blood HCO3 20.2 L Arterial Blood Base Excess -4.5 L Arterial Blood Oxygen Saturation 98.1 Ilan Test ACCEPTAB Arterial Blood Gas Puncture Site Right Radial Arterial Blood Carboxyhemoglobin 0.3 Arterial Blood Methemoglobin 0.4 Blood Gas A-a O2 Differential 531.9 H Oxyhemoglobin Percent 97.4 Total Hemoglobin 17.8 Blood Gas Temperature 32.6 Blood Gas Respiration Rate 20.0 Blood Gas Actual Respiration Rate 20 Blood Gas Modality VENT - AC FiO2 90.0 Blood Gas Tidal Volume 500.0 Blood Gas Low PEEP Setting 0 Blood Gas Notified Whom GLADISD Blood Gas Notified Time 07/08/2017 1:04:33 PM Test 07/08/17 12:03 07/08/17 12:24 07/08/17 12:58 Bedside Glucose 140 128 White Blood Count 9.0 Red Blood Count 5.29 Hemoglobin 16.4 Hematocrit 47.9 Mean Corpuscular Volume 90.5 Mean Corpuscular Hemoglobin 31.0 Mean Corpuscular Hemoglobin Concent 34.2 Red Cell Distribution Width 13.3 Platelet Count 133 L Mean Platelet Volume 11.4 H Neutrophils % 87.1 H Lymphocytes % 8.8 L Monocytes % 3.6 Eosinophils % 0.1 Basophils % 0.2 Nucleated Red Blood Cells % 0.0 Neutrophils # 7.8 H Lymphocytes # 0.8 Monocytes # 0.3 Eosinophils # 0.0 Basophils # 0.0 Nucleated Red Blood Cells # 0.0 Prothrombin Time 13.7 Prothrombin Time Ratio 1.1 INR International Normalized Ratio 1.05 Activated Partial Thromboplast Time 39.0 H Fibrinogen 492.0 #H Sodium Level 135 Potassium Level 3.7 Chloride Level 103 Carbon Dioxide Level 25 Anion Gap 11 Blood Urea Nitrogen 12 Creatinine 0.54 L Glucose Level 140 Calcium Level 8.0 L Phosphorus Level 2.9 Magnesium Level 1.7 Troponin I 0.551 *H Amylase Level < 30 Lipase 14 L Medications Medications Current Medications Cefepime HCl 50 ml @ 100 mls/hr Q12 IVPB Last administered on 07/08/17 11:14 ; Admin Dose 100 MLS/HR; Start 07/07/17 at 15:30 Vecuronium Riesel/Dextrose (Norcuron/D5W) 100 ml @ 5.7 mls/hr [id number] IV Last administered on 07/07/17 17:50; Admin Dose 4.8 MLS/HR; Start 07/07/17 at 16:58 Acetaminophen (Tylenol Supp) 650 mg Q4H PRN [place] TEMP > 37C; Start 07/07/17 at 17 :00 Acetaminophen (Tylenol Liquid) 650 mg Q4H PRN PO TEMP > 37C; Start 07/07/17 at 17:00 Acetaminophen (Tylenol Supp) 500 mg Q6H [place] ; Start 07/08/17 at 17:00 Acetaminophen (Tylenol Liquid) 500 mg Q6H PO ; Start 07/08/17 at 17:00 Meperidine HCl (Demerol) 12.5 mg Q4H PRN IV POST OPERATIVE SHIVERING; Start at 17:00 Meperidine HCl (Demerol) 25 mg Q4H PRN IV POST OPERATIVE SHIVERING; Start 07/07 at 17:00 Eye Lubricant ([place] Oint) 1 applic Q6 BOTH EYES Last administered on 07/08/17 05:15; Admin Dose 1 APPLIC; Start 07/07/17 at 18:00 Eye Lubricant (Artificial Tears Oph) 2 drop Q6 BOTH EYES Last administered on 07/08/17 05:14; Admin Dose 2 DROP; Start 07/07/17 at 18:00 Diagnostic Test (Pha) (Accu-Chek) 1 ea Q1H XX Last administered on 07/08/17 11 :14; Admin Dose 1 EA; Start 07/07/17 at 17:00 Dextrose (D50w Syringe) 25 ml Q15M PRN IV Till BS 80 mg/dL or above x2; Start 07/07/17 at 17:00 Dextrose (D50w Syringe) 50 ml Q15M PRN IV Till BS 80 mg/dL or above x2; Start 07/07/17 at 17:00 Acetaminophen (Tylenol Tab) 650 mg Q6H PRN PO PAIN LEVEL 1-3 OR FEVER; Start 07/07/17 at 17:30 Acetaminophen/ Hydrocodone Bitart ([place] (5/325)) 1 tab Q6H PRN PO MODERATE PAIN LEVEL 4-6; Start 07/07/17 at 17:30 Morphine Sulfate (morphine) 2 mg Q4H PRN IV SEVERE PAIN LEVEL 7-10; Start 07/07 at 17:30 Pantoprazole (Protonix Iv) 40 mg DAILY@06 IV Last administered on 07/08/17 05: 14; Admin Dose 40 MG; Start 07/08/17 at 06:00 Enoxaparin Sodium (Lovenox) 40 mg DAILY SC ; Start 07/08/17 at 09:00 Miscellaneous Information (* Miscellaneous Pharmacy Order) Hold all Metformin ... ONCE XX Last administered on 07/07/17 21:00; Admin Dose 1 EA; Start at 21:00; Stop 07/09/17 at 20:59 Aspirin 81 mg 81 mg DAILY PO ; Start 07/08/17 at 09:00 Dextrose/Sodium Chloride (D5-1/2ns) 1,000 ml @ 75 mls/hr [id number] IV Last administered on 07/08/17 10:55; Admin Dose 75 MLS/HR; Start 07/07/17 at 21:30 CASIE ORTIZ 9, 2017 13:28
--- NOTE | 2017-07-08 15:48 | PN ---
Date/Time of Note Date/Time of Note DATE: 07/08/17 TIME: 15:43 Assessment/Plan VTE Prophylaxis VTE Prophylaxis Intervention: LMWH Assessment/Plan Chief Complaint/Hosp Course 1. Cardiac arrest likely secondary to CHF Cardiology consultation appreciated, heart cath done which shows significant coronary disease with occluded [place] vessels as well as previous stents, only intact vessel is a GR Findings are chronic and troponins were only mildly elevated hence etiology of arrest is unlikely to be an acute ischemic event and likely due to heart failure Follow-up on 2D echo Hypothermia protocol ICU monitoring Evaluate neurologic function On antibiotics for possible aspiration pneumonia 2. Leukocytosis-likely reactive Resolved 3. Elevated LFTs secondary to cardiac arrest Monitor 4. Pneumothorax Appears to have resolved Prophylaxis: Lovenox Problems: Subjective 24 Hr Interval Summary Subjective hx not possible: pt non-verbal Exam/Review of Systems Vital Signs Vitals Vital Signs Date Time Temp Pulse Resp B/P Pulse Ox O2 Delivery O2 Flow Rate FiO2 07/08/17 15:20 65 07/08/17 13:00 90.8 54 20 100/66 100 07/08/17 06:30 Mechanical Ventilator Intake and Output 07/07/17 07/07/17 07/08/17 15:00 23:00 07:00 Intake Total 129.31 ml 807.96 ml Output Total 1050 ml 720 ml Balance -920.69 ml 87.96 ml Exam Constitutional: non-verbal ENMT: intubated Respiratory: clear to auscultation Cardiovascular: regular rate and rhythm Gastrointestinal: soft, No distended Musculoskeletal: nl extremities to inspection Results Result Diagram: 07/08/17 1224 07/08/17 1224 Results 24 hrs Laboratory Tests Test 07/07/17 17:56 07/07/17 17:57 07/07/17 21:20 07/07/17 23:06 Bedside Glucose 161 152 158 White Blood Count 17.1 H Red Blood Count 5.21 Hemoglobin 16.3 Hematocrit 49.0 Mean Corpuscular Volume 94.0 Mean Corpuscular Hemoglobin 31.3 Mean Corpuscular Hemoglobin Concent 33.3 Red Cell Distribution Width 13.5 Platelet Count 195 Mean Platelet Volume 11.2 H Neutrophils % 84.3 H Lymphocytes % 9.2 L Monocytes % 5.5 Eosinophils % 0.2 Basophils % 0.3 Nucleated Red Blood Cells % 0.0 Neutrophils # 14.4 H Lymphocytes # 1.6 Monocytes # 0.9 Eosinophils # 0.0 Basophils # 0.1 Nucleated Red Blood Cells # 0.0 Prothrombin Time 14.4 #H Prothrombin Time Ratio 1.1 INR International Normalized Ratio 1.12 Activated Partial Thromboplast Time 35.0 Fibrinogen 429.0 Sodium Level 141 Potassium Level 4.0 Chloride Level 109 Carbon Dioxide Level 20 L Anion Gap 16 Blood Urea Nitrogen 17 Creatinine 0.75 Glucose Level 146 # Calcium Level 7.8 L Phosphorus Level 3.7 Magnesium Level 1.8 Troponin I 1.220 *H Amylase Level 88 Lipase 70 Test 07/07/17 23:55 07/08/17 00:01 07/08/17 00:53 07/08/17 01:10 Bedside Glucose 150 128 Blood Gas Specimen Source Blood arterial Arterial Blood Date Drawn 07/08/2017 12:00:23 AM Arterial Blood pH (Temp corrected) 7.327 L Arterial Blood pCO2 (Temp correct) 35.3 Arterial Blood pO2 (Temp corrected) 71.4 L Arterial Blood HCO3 18.7 L Arterial Blood Base Excess -7.4 L Arterial Blood Oxygen Saturation 95.7 Ilan Test ACCEPTAB Arterial Blood Gas Puncture Site Right Radial Arterial Blood Carboxyhemoglobin 0.3 Arterial Blood Methemoglobin 0.2 Blood Gas A-a O2 Differential 613.5 H Oxyhemoglobin Percent 95.2 Total Hemoglobin 17.6 Blood Gas Temperature 34.0 Blood Gas Respiration Rate 16.0 Blood Gas Actual Respiration Rate 16 Blood Gas Modality VENT - AC FiO2 100.0 Blood Gas Tidal Volume 500.0 Blood Gas Low PEEP Setting 0 Blood Gas Critical Value Read Back STEMPLE RN Blood Gas Notified Whom [place] Blood Gas Notified Time 07/08/2017 12:15:00 AM White Blood Count 10.8 # Red Blood Count 5.25 Hemoglobin 16.3 Hematocrit 48.4 Mean Corpuscular Volume 92.2 Mean Corpuscular Hemoglobin 31.0 Mean Corpuscular Hemoglobin Concent 33.7 Red Cell Distribution Width 13.4 Platelet Count 158 Mean Platelet Volume 11.1 H Neutrophils % 83.3 H Lymphocytes % 11.2 L Monocytes % 4.7 Eosinophils % 0.2 Basophils % 0.3 Nucleated Red Blood Cells % 0.0 Neutrophils # 9.0 H Lymphocytes # 1.2 Monocytes # 0.5 Eosinophils # 0.0 Basophils # 0.0 Nucleated Red Blood Cells # 0.0 Prothrombin Time 13.4 Prothrombin Time Ratio 1.0 INR International Normalized Ratio 1.02 Activated Partial Thromboplast Time 36.6 H Fibrinogen 431.0 Sodium Level 138 Potassium Level 3.8 Chloride Level 106 Carbon Dioxide Level 25 Anion Gap 11 Blood Urea Nitrogen 14 Creatinine 0.63 Glucose Level 137 Calcium Level 7.9 L Phosphorus Level 3.1 Magnesium Level 1.7 Creatine Kinase 2103 H Creatine Kinase Index 0.9 Creatinine Kinase MB (Mass) 18.50 H Troponin I 1.210 *H Amylase Level 59 Lipase 30 Test 07/08/17 02:08 07/08/17 03:01 07/08/17 04:17 07/08/17 05:25 Bedside Glucose 166 139 144 133 Test 07/08/17 06:00 07/08/17 06:20 07/08/17 07:06 07/08/17 07:59 White Blood Count 9.9 Red Blood Count 5.33 Hemoglobin 16.1 Hematocrit 48.9 Mean Corpuscular Volume 91.7 Mean Corpuscular Hemoglobin 30.2 Mean Corpuscular Hemoglobin Concent 32.9 Red Cell Distribution Width 13.7 Platelet Count 129 L Mean Platelet Volume 11.1 H Neutrophils % 85.6 H Segmented Neutrophils % (Manual) 58 Band Neutrophils % (Manual) 25 H Lymphocytes % 10.3 L Lymphocytes % (Manual) 14 L Monocytes % 3.6 Monocytes % (Manual) 2 Eosinophils % 0.1 Basophils % 0.2 Metamyelocytes % (manual) 1 H Nucleated Red Blood Cells % 0.0 Neutrophils # 8.5 H Neutrophils # (Manual) 6.0 Band Neutrophils # 2.4 H Absolute Lymphocytes (Manual) 1.3 Lymphocytes # 1.0 Monocytes # 0.4 Absolute Monocytes (Manual) 0.1 L Eosinophils # 0.0 Basophils # 0.0 Metamyelocytes # 0.0 Nucleated Red Blood Cells # 0.0 Platelet Estimate DECREASED Polychromasia 1+ Prothrombin Time 13.7 Prothrombin Time Ratio 1.1 INR International Normalized Ratio 1.05 Activated Partial Thromboplast Time 36.4 H Fibrinogen 438.0 Blood Gas Specimen Source Blood arterial Arterial Blood Date Drawn 07/08/2017 6:22:21 AM Arterial Blood pH (Temp corrected) 7.274 *L Arterial Blood pCO2 (Temp correct) 49.1 H Arterial Blood pO2 (Temp corrected) 93.1 H Arterial Blood HCO3 22.2 Arterial Blood Base Excess -5.1 L Arterial Blood Oxygen Saturation 96.4 Ilan Test ACCEPTAB Arterial Blood Gas Puncture Site Right Radial Arterial Blood Carboxyhemoglobin 0.3 Arterial Blood Methemoglobin 0.3 Blood Gas A-a O2 Differential 570.8 H Oxyhemoglobin Percent 95.8 Total Hemoglobin 17.7 Blood Gas Temperature 37.0 Blood Gas Respiration Rate 16.0 Blood Gas Actual Respiration Rate 16 Blood Gas Modality VENT - AC FiO2 100.0 Blood Gas Tidal Volume 500.0 Blood Gas Low PEEP Setting 0 Blood Gas Inspiratory Pressure 20.0 Blood Gas Critical Value Read Back OCTAVIOS. R.N. Blood Gas Notified Whom JHOANA [employer] Blood Gas Notified Time 07/08/2017 6:34:05 AM Sodium Level 137 Potassium Level 3.8 Chloride Level 105 Carbon Dioxide Level 25 Anion Gap 11 Blood Urea Nitrogen 14 Creatinine 0.61 Glucose Level 153 Hemoglobin A1c 6.0 H Calcium Level 7.8 L Phosphorus Level 2.9 Magnesium Level 1.7 Creatine Kinase 2413 H Creatine Kinase Index 1.0 Creatinine Kinase MB (Mass) 24.20 H Troponin I 0.793 *H Triglycerides Level 131 Cholesterol Level 115 LDL Cholesterol, Calculated 50 HDL Cholesterol 39 Cholesterol/HDL Ratio 2.9 Amylase Level 49 Lipase 20 L Free Thyroxine Index 3.59 Thyroxine (T4) 10.3 Triiodothyronine (T3) Uptake 34.9 Bedside Glucose 163 154 159 Test 07/08/17 09:09 07/08/17 10:04 07/08/17 11:01 07/08/17 12:00 Bedside Glucose 143 150 140 Blood Gas Specimen Source Blood arterial Arterial Blood Date Drawn 07/08/2017 12:40:41 PM Arterial Blood pH (Temp corrected) 7.419 Arterial Blood pCO2 (Temp correct) 30.5 L Arterial Blood pO2 (Temp corrected) 87.7 Arterial Blood HCO3 20.2 L Arterial Blood Base Excess -4.5 L Arterial Blood Oxygen Saturation 98.1 Ilan Test ACCEPTAB Arterial Blood Gas Puncture Site Right Radial Arterial Blood Carboxyhemoglobin 0.3 Arterial Blood Methemoglobin 0.4 Blood Gas A-a O2 Differential 531.9 H Oxyhemoglobin Percent 97.4 Total Hemoglobin 17.8 Blood Gas Temperature 32.6 Blood Gas Respiration Rate 20.0 Blood Gas Actual Respiration Rate 20 Blood Gas Modality VENT - AC FiO2 90.0 Blood Gas Tidal Volume 500.0 Blood Gas Low PEEP Setting 0 Blood Gas Notified Whom [place] Blood Gas Notified Time 07/08/2017 1:04:33 PM Test 07/08/17 12:03 07/08/17 12:24 07/08/17 12:58 07/08/17 13:59 Bedside Glucose 140 128 125 White Blood Count 9.0 Red Blood Count 5.29 Hemoglobin 16.4 Hematocrit 47.9 Mean Corpuscular Volume 90.5 Mean Corpuscular Hemoglobin 31.0 Mean Corpuscular Hemoglobin Concent 34.2 Red Cell Distribution Width 13.3 Platelet Count 133 L Mean Platelet Volume 11.4 H Neutrophils % 87.1 H Lymphocytes % 8.8 L Monocytes % 3.6 Eosinophils % 0.1 Basophils % 0.2 Nucleated Red Blood Cells % 0.0 Neutrophils # 7.8 H Lymphocytes # 0.8 Monocytes # 0.3 Eosinophils # 0.0 Basophils # 0.0 Nucleated Red Blood Cells # 0.0 Prothrombin Time 13.7 Prothrombin Time Ratio 1.1 INR International Normalized Ratio 1.05 Activated Partial Thromboplast Time 39.0 H Fibrinogen 492.0 #H Sodium Level 135 Potassium Level 3.7 Chloride Level 103 Carbon Dioxide Level 25 Anion Gap 11 Blood Urea Nitrogen 12 Creatinine 0.54 L Glucose Level 140 Calcium Level 8.0 L Phosphorus Level 2.9 Magnesium Level 1.7 Troponin I 0.551 *H Amylase Level < 30 Lipase 14 L Test 07/08/17 15:06 Bedside Glucose 143 Medications Medications Current Medications Cefepime HCl 50 ml @ 100 mls/hr Q12 IVPB Last administered on 07/08/17 11:14 ; Admin Dose 100 MLS/HR; Start 07/07/17 at 15:30 Vecuronium [place]/Dextrose (Norcuron/D5W) 100 ml @ 5.7 mls/hr [id number] IV Last administered on 07/07/17 17:50; Admin Dose 4.8 MLS/HR; Start 07/07/17 at 16:58 Acetaminophen (Tylenol Supp) 650 mg Q4H PRN VT TEMP > 37C; Start 07/07/17 at 17 :00 Acetaminophen (Tylenol Liquid) 650 mg Q4H PRN PO TEMP > 37C; Start 07/07/17 at 17:00 Acetaminophen (Tylenol Supp) 500 mg Q6H VT ; Start 07/08/17 at 17:00 Acetaminophen (Tylenol Liquid) 500 mg Q6H PO ; Start 07/08/17 at 17:00 Meperidine HCl (Demerol) 12.5 mg Q4H PRN IV POST OPERATIVE SHIVERING; Start at 17:00 Meperidine HCl (Demerol) 25 mg Q4H PRN IV POST OPERATIVE SHIVERING; Start 07/07 at 17:00 Eye Lubricant ([place] Oint) 1 applic Q6 BOTH EYES Last administered on 07/08/17 12:00; Admin Dose 1 APPLIC; Start 07/07/17 at 18:00 Eye Lubricant (Artificial Tears Oph) 2 drop Q6 BOTH EYES Last administered on 07/08/17 12:00; Admin Dose 2 DROP; Start 07/07/17 at 18:00 Diagnostic Test (Pha) (Accu-Chek) 1 ea Q1H XX Last administered on 07/08/17 14 :39; Admin Dose 1 EA; Start 07/07/17 at 17:00 Dextrose (D50w Syringe) 25 ml Q15M PRN IV Till BS 80 mg/dL or above x2; Start 07/07/17 at 17:00 Dextrose (D50w Syringe) 50 ml Q15M PRN IV Till BS 80 mg/dL or above x2; Start 07/07/17 at 17:00 Acetaminophen (Tylenol Tab) 650 mg Q6H PRN PO PAIN LEVEL 1-3 OR FEVER; Start 07/07/17 at 17:30 Acetaminophen/ Hydrocodone Bitart ([place] (5/325)) 1 tab Q6H PRN PO MODERATE PAIN LEVEL 4-6; Start 07/07/17 at 17:30 Morphine Sulfate (morphine) 2 mg Q4H PRN IV SEVERE PAIN LEVEL 7-10; Start 07/07 at 17:30 Pantoprazole (Protonix Iv) 40 mg DAILY@06 IV Last administered on 07/08/17 05: 14; Admin Dose 40 MG; Start 07/08/17 at 06:00 Enoxaparin Sodium (Lovenox) 40 mg DAILY SC ; Start 07/08/17 at 09:00 Miscellaneous Information (* Miscellaneous Pharmacy Order) Hold all Metformin ... ONCE XX Last administered on 07/07/17 21:00; Admin Dose 1 EA; Start at 21:00; Stop 07/09/17 at 20:59 Aspirin 81 mg 81 mg DAILY PO ; Start 07/08/17 at 09:00 Dextrose/Sodium Chloride (D5-1/2ns) 1,000 ml @ 75 mls/hr [id number] IV Last administered on 07/08/17t 10:55; Admin Dose 75 MLS/HR; Start 07/07/17 at 21:30 MEERA DAVIES Jul 08, 2017 15:48
[2017-07-08] MEDS: ACETAMINOPHEN 650MG/20.3ML CUP PO SCH ×2 (16:53→23:00)
[2017-07-08] MEDS: ACETAMINOPHEN 650 MG SUPP PR SCH ×2 (16:57→23:51)
[2017-07-08] MEDS ORDERED: SOD CHLORIDE 0.9% 1,000 ML IV ONE (18:30)
[2017-07-08 18:33] LABS: AADO2 Arterial 358.5 mmHg (7.0-24.0); Allen Test ACCEPTAB; Arterial COHb 0.3 % (0.0-3.0); Arterial Fraction of Oxyhgb 96.6 % (93.0-99.0); Arterial HCO3 21.3 mmol/L (22.0-26.0); Arterial MetHb 0.3 % (0.0-1.5); Arterial Total Hemglobin 16.7 g/dl (12.0-18.0); MODE VENT - AC
[2017-07-08 18:58] LABS: BASOPHILS % 0.2 % (0.0-2.0); EOSINOPHILS % 0.1 % (0.0-7.0); HEMATOCRIT 45.5 % (42.0-52.0); HEMOGLOBIN 15.6 g/dl (14.0-18.0); LYMPHOCYTES # 0.8 10^3/ul (0.8-2.9); LYMPHOCYTES % 7.9 % (15.0-51.0); MEAN CORPUSCULAR HEMOGLOBIN 30.8 pg (29.0-33.0); MEAN CORPUSCULAR HGB CONC 34.3 g/dl (32.0-37.0); MEAN CORPUSCULAR VOLUME 89.7 fl (82.0-101.0); MEAN PLATELET VOLUME 11.3 fl (7.4-10.4); MONOCYTE # 0.4 10^3/ul (0.3-0.9); MONOCYTES % 4.2 % (0.0-11.0); NEUTROPHIL # 8.7 10^3/ul (1.6-7.5); NEUTROPHILS % 87.3 % (39.0-77.0); PLATELET COUNT 135 10^3/UL (140-415); POSITIVE DIFF @See below; RED BLOOD COUNT 5.07 10^6/ul (4.70-6.10); RED CELL DISTRIBUTION WIDTH 13.2 % (11.5-14.5)
--- NOTE | 2017-07-08 18:59 | PN ---
Date/Time of Note Date/Time of Note DATE: 07/08/17 TIME: 18:58 Assessment/Plan Assessment/Plan Chief Complaint/Hosp Course IMPRESSION: 1. Status post cardiac arrest with CPR. 2. Left-sided pneumothorax. resolved will monitor CXR . Discussed with the nursing staff. Problems: Subjective 24 Hr Interval Summary Constitutional: improved Pain Control: mild Exam/Review of Systems Vital Signs Vitals Vital Signs Date Time Temp Pulse Resp B/P Pulse Ox O2 Delivery O2 Flow Rate FiO2 07/08/17 18:00 92.3 58 20 128/76 100 07/08/17 17:00 65 07/08/17 06:30 Mechanical Ventilator Intake and Output 07/07/17 07/07/17 07/08/17 15:00 23:00 07:00 Intake Total 129.31 ml 807.96 ml Output Total 1050 ml 720 ml Balance -920.69 ml 87.96 ml Exam ENMT: mucosa pink and moist, nl external ears & nose, nl lips & teeth, nl nasal mucosa & septum Neck: non-tender, supple Respiratory: clear to auscultation, normal air movement Cardiovascular: nl pulses, regular rate and rhythm Gastrointestinal: nl liver, spleen, non-tender, soft Results Result Diagram: 07/08/17 1224 07/08/17 1224 GENEVA CALDERON MD Jul 08, 2017 18:59
[2017-07-08 19:08] LABS: CALCIUM 7.4 mg/dl (8.4-10.2); CREATININE 0.49 mg/dl (0.61-1.24); MAGNESIUM 1.5 mg/dl (1.7-2.5); PHOSPHORUS 2.8 mg/dl (2.5-4.9); POTASSIUM 3.5 mmol/L (3.5-5.1)
[2017-07-08 19:09] LABS: INR 1.09; PROTIME 14.1 Sec (12.2-14.2); PT RATIO 1.1
[2017-07-08 19:10] LABS: PARTIAL THROMBOPLASTIN TIME 41.7 Sec (25.0-35.0)
--- NOTE | 2017-07-08 22:01 | RADRPT ---
Echocardiogram Report Patient Name: PRINCE SHETH Gender: Male Date: 1945 Study Date: 08-Jul-2017 Varnish Melter Helper: Jason Waters RDCS Location: [address] [place] [address]. Physician: MEERA DAVIES Quality: Adequate Procedures: Transthoracic echocardiogram with complete 2D, M-Mode, and doppler examination. Indications: Cardiac Arrest. 2D/M Mode Doppler Measurement Value Normal Ranges Measurement Value Normal Ranges LVIDd 2D 5.0 3.5 - 5.6 cm AV Peak [place] 0.9 m/sec LVIDs 2D 3.8 2.1 - 4.1 cm AV Peak PG 4.0 mmHg FS 2D 23.2 % AI Peak PG 27.0 mmHg LVPWd 2D 1.0 0.6 - 1.1 cm AI Peak [place] 2.6 m/sec IVSd 2D 0.9 0.6 - 1.1 cm AI PHT 599.0 msec IVS/LVPW 2D 0.9 LVOT Peak [place] 0.6 m/sec AoR Diam 2D 4.1 2.0 - 3.7 cm LVOT Peak PG 2.0 mmHg LA/Ao 2D 1 0 - 1 MV E Peak [place] 0.4 m/sec EDV 2D 122.0 cm3 MV A Peak [place] 0.7 m/sec ESV 2D 55.3 cm3 MV E/A 0.5 LA Dimen 2D 2.8 2.3 - 4.0 cm MV Decel Time 109 msec MV E/A 0.5 Findings Left Ventricle: Normal left ventricular cavity size. Normal left ventricular wall thickness. Moderate global left ventricular systolic dysfunction. Ejection fraction is visually estimated at 30 %. Tissue Doppler/Mitral Doppler indices are consistent with impaired relaxation (Stage I diastolic dysfunction). Right Ventricle: Normal right ventricular size. Normal right ventricular systolic function. Left Atrium: The left atrium is normal in size. Right Atrium: The right atrium is normal in size. Mitral Valve: Normal appearance of the mitral valve. Mild mitral annular calcification. Trace mitral regurgitation. Aortic Valve: No hemodynamically significant aortic stenosis by doppler. Aortic cusps appear mildly calcified. Mild aortic valve regurgitation. Tricuspid Valve: Normal appearance of the tricuspid valve. Unable to obtain RVSP due to minimal presence of tricuspid regurgitation. Pulmonic Valve: Pulmonic valve not well visualized. There is trace pulmonic regurgitation. Pericardium: Normal pericardium with no significant pericardial effusion. Aorta: There is mild aortic root dilation. IVC: Normal size and normal respiratory collapse consistent with normal right atrial pressure. Conclusions 1.Normal left ventricular cavity size. Normal left ventricular wall thickness. Moderate global left ventricular systolic dysfunction. Ejection fraction is visually estimated at 30 %. Tissue Doppler/Mitral Doppler indices are consistent with impaired relaxation (Stage I diastolic dysfunction). 2.Trace mitral regurgitation. 3.Mild aortic valve regurgitation. 4.Normal appearance of the tricuspid valve. Unable to obtain RVSP due to minimal presence of tricuspid regurgitation. 5.Pulmonic valve not well visualized. There is trace pulmonic regurgitation. Electronically Signed By: Trav Wallace 08-Jul-2017 22:00:50 -0800 Patient Name: PRINCE SHETH Study Date: 08-Jul-2017 [id number]
[2017-07-09] VITALS (96 sets, daily range): BP systolic 86–167; BP diastolic 57–103; PULSE 53–115; RESP 13–28
[2017-07-09] MEDS: OCULAR LUBRICANT 3.5 GM OPH OINT BOTH EYES SCH ×4 (00:01→17:35)
[2017-07-09] MEDS: ARTIFICIAL TEARS 15 ML OPH BOTH EYES SCH ×4 (00:02→17:35)
[2017-07-09] MEDS: ACCU-CHEK XX SCH ×24 (00:02→23:00)
[2017-07-09 00:32] LABS: AADO2 Arterial 382.1 mmHg (7.0-24.0); Allen Test ACCEPTAB; Arterial Base Excess -1.9 mmol/L (-3.0-3); Arterial COHb 0 % (0.0-3.0); Arterial Fraction of Oxyhgb 93.5 % (93.0-99.0); Arterial HCO3 21.4 mmol/L (22.0-26.0); Arterial MetHb 0.3 % (0.0-1.5); Arterial Total Hemglobin 16.4 g/dl (12.0-18.0); Blood Gas Low PEEP Setting 0 cmH2O; MODE VENT - AC
[2017-07-09 01:12] LABS: BASOPHILS % 0.1 % (0.0-2.0); EOSINOPHILS % 0.2 % (0.0-7.0); HEMATOCRIT 45.2 % (42.0-52.0); HEMOGLOBIN 15.7 g/dl (14.0-18.0); LYMPHOCYTES # 0.8 10^3/ul (0.8-2.9); LYMPHOCYTES % 7.4 % (15.0-51.0); MEAN CORPUSCULAR HGB CONC 34.7 g/dl (32.0-37.0); MEAN CORPUSCULAR VOLUME 89.3 fl (82.0-101.0); MEAN PLATELET VOLUME 11.5 fl (7.4-10.4); MONOCYTE # 0.5 10^3/ul (0.3-0.9); MONOCYTES % 4.3 % (0.0-11.0); NEUTROPHIL # 9.4 10^3/ul (1.6-7.5); NEUTROPHILS % 87.7 % (39.0-77.0); PLATELET COUNT 141 10^3/UL (140-415); RED BLOOD COUNT 5.06 10^6/ul (4.70-6.10); RED CELL DISTRIBUTION WIDTH 13.3 % (11.5-14.5); WHITE BLOOD COUNT 10.7 10^3/ul (4.8-10.8)
[2017-07-09 01:40] LABS: INR 1.12; PROTIME 14.4 Sec (12.2-14.2); PT RATIO 1.1
[2017-07-09 01:41] LABS: CALCIUM 7.8 mg/dl (8.4-10.2); CREATININE 0.57 mg/dl (0.61-1.24); MAGNESIUM 1.5 mg/dl (1.7-2.5); PARTIAL THROMBOPLASTIN TIME 39.3 Sec (25.0-35.0); PHOSPHORUS 2.9 mg/dl (2.5-4.9); POTASSIUM 3.4 mmol/L (3.5-5.1)
[2017-07-09] MEDS ORDERED: MAGNESIUM SULFATE 2 GM/50 ML 50 ML ONE (01:42)
[2017-07-09] MEDS ORDERED: MAGNESIUM SULFATE 2 GM/50 ML 50 ML IVPB ONE (02:00)
[2017-07-09] MEDS: PROPOFOL 100 ML IV SCH ×5 (03:49→18:13)
[2017-07-09] MEDS: VECURONIUM 100 MG in DEXTROSE 5% 100 ML IV SCH (04:04)
[2017-07-09] MEDS: ACETAMINOPHEN 650MG/20.3ML CUP PO SCH ×3 (05:00→16:42)
[2017-07-09] MEDS: ACETAMINOPHEN 650 MG SUPP PR SCH ×4 (05:31→23:00)
[2017-07-09 06:00] LABS: BASOPHILS % 0.1 % (0.0-2.0); EOSINOPHILS % 0.1 % (0.0-7.0); HEMATOCRIT 46.2 % (42.0-52.0); HEMOGLOBIN 15.7 g/dl (14.0-18.0); LYMPHOCYTES # 0.7 10^3/ul (0.8-2.9); LYMPHOCYTES % 6.1 % (15.0-51.0); MEAN CORPUSCULAR HEMOGLOBIN 30.3 pg (29.0-33.0); MEAN PLATELET VOLUME 11.9 fl (7.4-10.4); MONOCYTE # 0.4 10^3/ul (0.3-0.9); MONOCYTES % 3.5 % (0.0-11.0); NEUTROPHIL # 10.3 10^3/ul (1.6-7.5); NEUTROPHILS % 89.9 % (39.0-77.0); PLATELET COUNT 155 10^3/UL (140-415); POSITIVE DIFF @See below; RED BLOOD COUNT 5.19 10^6/ul (4.70-6.10); RED CELL DISTRIBUTION WIDTH 13.6 % (11.5-14.5); WHITE BLOOD COUNT 11.4 10^3/ul (4.8-10.8)
[2017-07-09 06:23] LABS: INR 1.17; PT RATIO 1.2
[2017-07-09 06:29] LABS: AADO2 Arterial 464.6 mmHg (7.0-24.0); Allen Test ACCEPTAB; Arterial Base Excess -3.3 mmol/L (-3.0-3); Arterial COHb 0.3 % (0.0-3.0); Arterial Fraction of Oxyhgb 91.7 % (93.0-99.0); Arterial HCO3 23.2 mmol/L (22.0-26.0); Arterial MetHb 0.4 % (0.0-1.5); Arterial Total Hemglobin 16.9 g/dl (12.0-18.0); Blood Gas Low PEEP Setting 0 cmH2O; MODE VENT - AC
[2017-07-09 06:37] LABS: CALCIUM 7.7 mg/dl (8.4-10.2); CREATININE 0.65 mg/dl (0.61-1.24); MAGNESIUM 2.3 mg/dl (1.7-2.5); PHOSPHORUS 3.4 mg/dl (2.5-4.9); POTASSIUM 3.6 mmol/L (3.5-5.1)
--- NOTE | 2017-07-09 08:06 | RADRPT ---
PROCEDURE: XR Chest. CLINICAL INDICATION: Shortness of breath. TECHNIQUE: Single frontal view. COMPARISON: None. FINDINGS: The endotracheal tube, nasogastric tube, and right subclavian vein catheter are in satisfactory posi tion. There is atelectasis or pneumonia at the lung bases. The heart is enlarged. There are sternal wires. There is calcification in the aorta consistent with atherosclerosis. There are moderate bilateral pleural effusions. There is no pneumothorax. IMPRESSION: 1. Tubes and lines in satisfactory position. 2. Atelectasis or pneumonia at the lung bases. 3. Cardiomegaly and atherosclerosis. 4. Previous median sternotomy. 5. Moderate bilateral pleural effusions. RPTAT: QQ .Juan Luis Nina MD, MD Date Time Electronically viewed and signed by .Juan Luis Nina MD, MD on 07/09/2017 08:06 .R/
[2017-07-09 08:11] LABS: AADO2 Arterial 592.7 mmHg (7.0-24.0); Allen Test ACCEPTAB; Arterial Base Excess -2.6 mmol/L (-3.0-3); Arterial COHb 0.3 % (0.0-3.0); Arterial Fraction of Oxyhgb 93.7 % (93.0-99.0); Arterial HCO3 23.2 mmol/L (22.0-26.0); Arterial MetHb 0.4 % (0.0-1.5); Arterial Total Hemglobin 16.8 g/dl (12.0-18.0); MODE VENT - AC
[2017-07-09] MEDS: CEFEPIME 2GM/50 ML (PMX) 50 ML IVPB SCH ×2 (08:49→20:27)
[2017-07-09] MEDS: ASPIRIN (EC) 81 MG TAB PO SCH (08:49)
[2017-07-09] MEDS: FAMOTIDINE 20 MG INJ IV SCH ×2 (08:49→20:36)
[2017-07-09] MEDS: ENOXAPARIN 40 MG/0.4 ML SYG SC SCH (08:50)
--- NOTE | 2017-07-09 09:17 | CONS ---
Date/Time of Note Date/Time of Note DATE: 07/09/17 TIME: 09:13 Assessment/Plan Assessment/Plan Additional Assessment/Plan Chest x-ray was reviewed from today which is showing right lower lobe subsegmental atelectasis. Small pleural effusions are present. Patient is currently on assist control of 18, tidal volume 500, PEEP of 0, 100% FiO2. Assessment and recommendations; 1. Patient admitted with cardiac arrest status post cardiac catheterization, findings not amenable to angioplasty. 2. Patient currently on hypothermia protocol. To be weaned off shortly. 3. Possibly some element of aspiration pneumonia. 4. Mild thrombocytopenia. 5. History of prior CABG. Continue current treatment. Add PEEP of 10. Prognosis depends upon adequate mental status recovery. We will obtain follow-up chest x-ray in 24 hours. Next 35 minutes of critical care time was spent evaluating the patient. Consultation Date/Type/Reason Admit Date/Time Jul 07, 2017 at 16:46 Initial Consult Date Type of Consultation: Pulmonary/critical care Referring Provider: PRINCE HASSAN 24 HR Interval Summary Free Text/Dictation Patient's condition is critical. Currently on hypothermia protocol to be weaned off shortly. Patient has remained hemodynamically stable. No cardiac arrhythmias reported. General exam; elderly male, orally intubated, sedated and paralyzed. Exam/Review of Systems Vital Signs Vitals Vital Signs Date Time Temp Pulse Resp B/P Pulse Ox O2 Delivery O2 Flow Rate FiO2 07/09/17 08:15 95 22 95/67 99 07/09/17 08:00 98.1 Mechanical Ventilator 07/09/17 06:49 100 Intake and Output 07/08/17 07/08/17 07/09/17 15:00 23:00 07:00 Intake Total 777.51 ml 1725.55 ml 627.74 ml Output Total 388 ml 350 ml 425 ml Balance 389.51 ml 1375.55 ml 202.74 ml Exam HEENT exam; supple neck, positive JVD. No lymphadenopathy. Midline trachea. No thyromegaly. Orally intubated. Patient has fair dentition. Has bilateral intraocular lens implants in place. Chest exam; diminished breath sounds lung bases. Upper lobes are clear to auscultation. S1-S2 audible, no murmurs. There is a well-healed sternal scar. Abdomen exam; soft, no organomegaly. Bowel sounds are sluggish. Extremity exam; no peripheral edema. Patient has a patchy ecchymosis in upper extremities. [employer] exam; patient is sedated and paralyzed. Results Result Diagram: 07/09/17 0500 07/09/17 0500 Results 24 hrs Laboratory Tests Test 07/08/17 10:04 07/08/17 11:01 07/08/17 12:00 07/08/17 12:03 Bedside Glucose 150 140 140 Blood Gas Specimen Source Blood arterial Arterial Blood Date Drawn 07/08/2017 12:40:41 PM Arterial Blood pH (Temp corrected) 7.419 Arterial Blood pCO2 (Temp correct) 30.5 L Arterial Blood pO2 (Temp corrected) 87.7 Arterial Blood HCO3 20.2 L Arterial Blood Base Excess -4.5 L Arterial Blood Oxygen Saturation 98.1 Ilan Test ACCEPTAB Arterial Blood Gas Puncture Site Right Radial Arterial Blood Carboxyhemoglobin 0.3 Arterial Blood Methemoglobin 0.4 Blood Gas A-a O2 Differential 531.9 H Oxyhemoglobin Percent 97.4 Total Hemoglobin 17.8 Blood Gas Temperature 32.6 Blood Gas Respiration Rate 20.0 Blood Gas Actual Respiration Rate 20 Blood Gas Modality VENT - AC FiO2 90.0 Blood Gas Tidal Volume 500.0 Blood Gas Low PEEP Setting 0 Blood Gas Notified Whom JLD Blood Gas Notified Time 07/08/2017 1:04:33 PM Test 07/08/17 12:24 07/08/17 12:58 07/08/17 13:59 07/08/17 15:06 White Blood Count 9.0 Red Blood Count 5.29 Hemoglobin 16.4 Hematocrit 47.9 Mean Corpuscular Volume 90.5 Mean Corpuscular Hemoglobin 31.0 Mean Corpuscular Hemoglobin Concent 34.2 Red Cell Distribution Width 13.3 Platelet Count 133 L Mean Platelet Volume 11.4 H Neutrophils % 87.1 H Lymphocytes % 8.8 L Monocytes % 3.6 Eosinophils % 0.1 Basophils % 0.2 Nucleated Red Blood Cells % 0.0 Neutrophils # 7.8 H Lymphocytes # 0.8 Monocytes # 0.3 Eosinophils # 0.0 Basophils # 0.0 Nucleated Red Blood Cells # 0.0 Prothrombin Time 13.7 Prothrombin Time Ratio 1.1 INR International Normalized Ratio 1.05 Activated Partial Thromboplast Time 39.0 H Fibrinogen 492.0 #H Sodium Level 135 Potassium Level 3.7 Chloride Level 103 Carbon Dioxide Level 25 Anion Gap 11 Blood Urea Nitrogen 12 Creatinine 0.54 L Glucose Level 140 Calcium Level 8.0 L Phosphorus Level 2.9 Magnesium Level 1.7 Troponin I 0.551 *H Amylase Level < 30 Lipase 14 L Bedside Glucose 128 125 143 Test 07/08/17 16:06 07/08/17 17:06 07/08/17 18:00 07/08/17 18:33 Bedside Glucose 121 123 112 Blood Gas Specimen Source Blood arterial Arterial Blood Date Drawn 07/08/2017 6:15:15 PM Arterial Blood pH (Temp corrected) 7.439 Arterial Blood pCO2 (Temp correct) 31.0 L Arterial Blood pO2 (Temp corrected) 76.7 L Arterial Blood HCO3 21.3 L Arterial Blood Base Excess -3.0 Arterial Blood Oxygen Saturation 97.2 Ilan Test ACCEPTAB Arterial Blood Gas Puncture Site Right HEEL Arterial Blood Carboxyhemoglobin 0.3 Arterial Blood Methemoglobin 0.3 Blood Gas A-a O2 Differential 358.5 H Oxyhemoglobin Percent 96.6 Total Hemoglobin 16.7 Blood Gas Temperature 33.5 Blood Gas Respiration Rate 20.0 Blood Gas Actual Respiration Rate 20 Blood Gas Modality VENT - AC FiO2 65.0 Blood Gas Tidal Volume 500.0 Blood Gas Low PEEP Setting 5.0 Blood Gas Critical Value Read Back Magda FIELDS RN Blood Gas Notified Whom RDIX Blood Gas Notified Time 07/08/2017 6:32:50 PM White Blood Count 10.0 Red Blood Count 5.07 Hemoglobin 15.6 Hematocrit 45.5 Mean Corpuscular Volume 89.7 Mean Corpuscular Hemoglobin 30.8 Mean Corpuscular Hemoglobin Concent 34.3 Red Cell Distribution Width 13.2 Platelet Count 135 L Mean Platelet Volume 11.3 H Neutrophils % 87.3 H Lymphocytes % 7.9 L Monocytes % 4.2 Eosinophils % 0.1 Basophils % 0.2 Nucleated Red Blood Cells % 0.0 Neutrophils # 8.7 H Lymphocytes # 0.8 Monocytes # 0.4 Eosinophils # 0.0 Basophils # 0.0 Nucleated Red Blood Cells # 0.0 Prothrombin Time 14.1 Prothrombin Time Ratio 1.1 INR International Normalized Ratio 1.09 Activated Partial Thromboplast Time 41.7 H Fibrinogen 522.0 #H Sodium Level 135 Potassium Level 3.5 Chloride Level 104 Carbon Dioxide Level 23 Anion Gap 12 Blood Urea Nitrogen 11 Creatinine 0.49 L Glucose Level 129 Calcium Level 7.4 L Phosphorus Level 2.8 Magnesium Level 1.5 L Troponin I 0.457 *H Amylase Level 60 Lipase 13 L Test 07/08/17 19:49 07/08/17 20:53 07/08/17 22:10 07/09/17 00:00 Bedside Glucose 135 128 136 117 Test 07/09/17 00:24 07/09/17 01:03 07/09/17 01:59 07/09/17 04:04 Blood Gas Specimen Source Blood arterial Arterial Blood Date Drawn 07/09/2017 12:19:38 AM Arterial Blood pH (Temp corrected) 7.476 H Arterial Blood pCO2 (Temp correct) 28.9 L Arterial Blood pO2 (Temp corrected) 54.7 *L Arterial Blood HCO3 21.4 L Arterial Blood Base Excess -1.9 Arterial Blood Oxygen Saturation 93.8 L Ilan Test ACCEPTAB Arterial Blood Gas Puncture Site Right Radial Arterial Blood Carboxyhemoglobin 0 Arterial Blood Methemoglobin 0.3 Blood Gas A-a O2 Differential 382.1 H Oxyhemoglobin Percent 93.5 Total Hemoglobin 16.4 Blood Gas Temperature 34.0 Blood Gas Respiration Rate 20.0 Blood Gas Actual Respiration Rate 20 Blood Gas Modality VENT - AC FiO2 65.0 Blood Gas Tidal Volume 500.0 Blood Gas Low PEEP Setting 0 Blood Gas Inspiratory Pressure 31.0 Blood Gas Critical Value Read Back OCTAVIO,S. R.N. Blood Gas Notified Whom JHOANA THOMAS Blood Gas Notified Time 07/09/2017 12:31:02 AM White Blood Count 10.7 Red Blood Count 5.06 Hemoglobin 15.7 Hematocrit 45.2 Mean Corpuscular Volume 89.3 Mean Corpuscular Hemoglobin 31.0 Mean Corpuscular Hemoglobin Concent 34.7 Red Cell Distribution Width 13.3 Platelet Count 141 Mean Platelet Volume 11.5 H Neutrophils % 87.7 H Lymphocytes % 7.4 L Monocytes % 4.3 Eosinophils % 0.2 Basophils % 0.1 Nucleated Red Blood Cells % 0.0 Neutrophils # 9.4 H Lymphocytes # 0.8 Monocytes # 0.5 Eosinophils # 0.0 Basophils # 0.0 Nucleated Red Blood Cells # 0.0 Prothrombin Time 14.4 H Prothrombin Time Ratio 1.1 INR International Normalized Ratio 1.12 Activated Partial Thromboplast Time 39.3 H Fibrinogen 550.0 #H Sodium Level 136 Potassium Level 3.4 L Chloride Level 105 Carbon Dioxide Level 25 Anion Gap 9 Blood Urea Nitrogen 10 Creatinine 0.57 L Glucose Level 130 Calcium Level 7.8 L Phosphorus Level 2.9 Magnesium Level 1.5 L Amylase Level 59 Lipase 13 L Bedside Glucose 109 142 Test 07/09/17 05:00 07/09/17 05:54 07/09/17 06:00 07/09/17 08:00 White Blood Count 11.4 H Red Blood Count 5.19 Hemoglobin 15.7 Hematocrit 46.2 Mean Corpuscular Volume 89.0 Mean Corpuscular Hemoglobin 30.3 Mean Corpuscular Hemoglobin Concent 34.0 Red Cell Distribution Width 13.6 Platelet Count 155 Mean Platelet Volume 11.9 H Neutrophils % 89.9 H Lymphocytes % 6.1 L Monocytes % 3.5 Eosinophils % 0.1 Basophils % 0.1 Nucleated Red Blood Cells % 0.0 Neutrophils # 10.3 H Lymphocytes # 0.7 L Monocytes # 0.4 Eosinophils # 0.0 Basophils # 0.0 Nucleated Red Blood Cells # 0.0 Prothrombin Time 15.0 H Prothrombin Time Ratio 1.2 INR International Normalized Ratio 1.17 Activated Partial Thromboplast Time 38.0 H Fibrinogen 581.0 #H Sodium Level 136 Potassium Level 3.6 Chloride Level 103 Carbon Dioxide Level 25 Anion Gap 12 Blood Urea Nitrogen 11 Creatinine 0.65 Glucose Level 163 Calcium Level 7.7 L Phosphorus Level 3.4 Magnesium Level 2.3 Amylase Level 70 Lipase 10 L Bedside Glucose 146 Blood Gas Specimen Source Blood arterial Blood arterial Arterial Blood Date Drawn 07/09/2017 6:15:02 AM 07/09/2017 8:00:50 AM Arterial Blood pH (Temp corrected) 7.332 L 7.345 L Arterial Blood pCO2 (Temp correct) 44.3 43.5 Arterial Blood pO2 (Temp corrected) 61.5 L 76.8 L Arterial Blood HCO3 23.2 23.2 Arterial Blood Base Excess -3.3 L -2.6 Arterial Blood Oxygen Saturation 92.3 L 94.4 L Ilan Test ACCEPTAB ACCEPTAB Arterial Blood Gas Puncture Site Right Radial Right Radial Arterial Blood Carboxyhemoglobin 0.3 0.3 Arterial Blood Methemoglobin 0.4 0.4 Blood Gas A-a O2 Differential 464.6 H 592.7 H Oxyhemoglobin Percent 91.7 L 93.7 Total Hemoglobin 16.9 16.8 Blood Gas Temperature 35.9 37.0 Blood Gas Respiration Rate 18.0 18.0 Blood Gas Actual Respiration Rate 18 28 Blood Gas Modality VENT - AC VENT - AC FiO2 80.0 100.0 Blood Gas Tidal Volume 500.0 500.0 Blood Gas Low PEEP Setting 0 10.0 Blood Gas Notified Whom CHRISTINE KATZ Blood Gas Notified Time 07/09/2017 6:29:45 AM 07/09/2017 8:11:47 AM Test 07/09/17 08:03 Bedside Glucose 139 Medications Medications Current Medications Cefepime HCl 50 ml @ 100 mls/hr Q12 IVPB Last administered on 07/09/17 08:49 ; Admin Dose 100 MLS/HR; Start 07/07/17 at 15:30 Vecuronium [place]/Dextrose (Norcuron/D5W) 100 ml @ 5.7 mls/hr [id number] IV Last administered on 07/07/17 17:50; Admin Dose 4.8 MLS/HR; Start 07/07/17 at 16:58 Acetaminophen (Tylenol Supp) 650 mg Q4H PRN [place] TEMP > 37C; Start 07/07/17 at 17 :00 Acetaminophen (Tylenol Liquid) 650 mg Q4H PRN PO TEMP > 37C; Start 07/07/17 at 17:00 Acetaminophen (Tylenol Supp) 500 mg Q6H LA Last administered on 07/09/17 05: 31; Admin Dose 500 MG; Start 07/08/17 at 17:00 Acetaminophen (Tylenol Liquid) 500 mg Q6H PO ; Start 07/08/17 at 17:00 Meperidine HCl (Demerol) 12.5 mg Q4H PRN IV POST OPERATIVE SHIVERING Last administered on 07/08/17 19:00; Admin Dose 12.5 MG; Start 07/07/17 at 17:00 Meperidine HCl (Demerol) 25 mg Q4H PRN IV POST OPERATIVE SHIVERING Last administered on 07/09/17 03:49; Admin Dose 25 MG; Start 07/07/17 at 17:00 Eye Lubricant (Akwa Oint) 1 applic Q6 BOTH EYES Last administered on 05:30; Admin Dose 1 APPLIC; Start 07/07/17 at 18:00 Eye Lubricant (Artificial Tears Oph) 2 drop Q6 BOTH EYES Last administered on 07/09/17 05:29; Admin Dose 2 DROP; Start 07/07/17 at 18:00 Diagnostic Test (Pha) (Accu-Chek) 1 ea Q1H XX Last administered on 07/09/17 08:04; Admin Dose 1 EA; Start 07/07/17 at 17:00 Dextrose (D50w Syringe) 25 ml Q15M PRN IV Till BS 80 mg/dL or above x2; Start 07/07/17 at 17:00 Dextrose (D50w Syringe) 50 ml Q15M PRN IV Till BS 80 mg/dL or above x2; Start 07/07/17 at 17:00 Acetaminophen (Tylenol Tab) 650 mg Q6H PRN PO PAIN LEVEL 1-3 OR FEVER; Start 07/07/17 at 17:30 Acetaminophen/ Hydrocodone Bitart ([place] (5/325)) 1 tab Q6H PRN PO MODERATE PAIN LEVEL 4-6; Start 07/07/17 at 17:30 Morphine Sulfate (morphine) 2 mg Q4H PRN IV SEVERE PAIN LEVEL 7-10; Start 07/07 at 17:30 Enoxaparin Sodium (Lovenox) 40 mg DAILY SC Last administered on 07/09/17 08: 50; Admin Dose 40 MG; Start 07/08/17 at 09:00 Miscellaneous Information (* Miscellaneous Pharmacy Order) Hold all Metformin ... ONCE XX Last administered on 07/08/17 21:00; Admin Dose 1 EA; Start at 21:00; Stop 07/09/17 at 20:59 Aspirin 81 mg 81 mg DAILY PO Last administered on 07/09/17 08:49; Admin Dose 81 MG; Start 07/08/17 at 09:00 Dextrose/Sodium Chloride (D5-1/2ns) 1,000 ml @ 75 mls/hr [id number] IV Last administered on 07/08/17 23:45; Admin Dose 75 MLS/HR; Start 07/07/17 at 21:30 Famotidine (Pepcid Iv) 20 mg BID IV Last administered on 07/09/17 08:49; Admin Dose 20 MG; Start 07/09/17 at 09:00 KANU GRESHAM Jul 09, 2017 09:17
[2017-07-09] MEDS: DEXTROSE 5%-0.45% NACL 1,000 ML IV SCH (12:07)
--- NOTE | 2017-07-09 12:31 | CONS ---
Date/Time of Note Date/Time of Note DATE: 07/09/17 TIME: 12:27 Assessment/Plan Assessment/Plan Additional Assessment/Plan 1. Cardiac arrest with initial rhythm of ventricular fibrillation per report now post-op s/p LHC revealing 3 vessel nenana obstructive disease with occluded svg x 2 and patent GR to LAD - on med RX now. 2. Positive troponin, status post cardiac arrest-downtrending - no intervention planned. 3. Abnormal ECG, status post cardiac arrest - con't supportive care. 4. Hypertension- well Rx now. 5. History of coronary artery disease, status post coronary bypass graft surgery- no intervention plnaned now. 6. Respiratory failure, status post intubation - on high o2 - con't resp Rx 7. Leukocytosis- on anti-Bx, con't Med Rx. 8. Possible diabetes mellitus. Consultation Date/Type/Reason Admit Date/Time Jul 07, 2017 at 16:46 Initial Consult Date Type of Consultation: Pulmonary/critical care Referring Provider: PRINCE HASSAN 24 HR Interval Summary Free Text/Dictation NO acute change - BP satble - family at bedside - con't resp care. ROS: No fever, no chills, no nausea, no vomiting, no diarrhea/constipation No recent weight changes No chest pain, no PND, no orthopnea No dizziness, blurred vision No thirst, no heat or cold intolerance (per nurse, sedated now) Exam/Review of Systems Vital Signs Vitals Vital Signs Date Time Temp Pulse Resp B/P Pulse Ox O2 Delivery O2 Flow Rate FiO2 07/09/17 12:15 115 26 126/74 100 07/09/17 12:00 99.6 Mechanical Ventilator 07/09/17 11:00 100 Intake and Output 07/08/17 07/08/17 07/09/17 15:00 23:00 07:00 Intake Total 777.51 ml 1725.55 ml 627.74 ml Output Total 388 ml 350 ml 425 ml Balance 389.51 ml 1375.55 ml 202.74 ml Exam General: WN/WD/NAD, AOx 0 sedated/intubated HEENT: Unicetric/atraumatic/EOMI (does not follow commands) NECK: JVD elevated, no thyromegaly Lymph: no lymphadenopathy HEART: regular with no S3, II/ systolic murmur at apex LUNGS: Coarse sounds ABD: soft, NT, ND, +BS : Intact Neuro: non focal SKIN: chronic changes EXT: trace edema Results Result Diagram: 07/09/17 0500 07/09/17 0500 Results 24 hrs Laboratory Tests Test 07/08/17 12:58 07/08/17 13:59 07/08/17 15:06 07/08/17 16:06 Bedside Glucose 128 125 143 121 Test 07/08/17 17:06 07/08/17 18:00 07/08/17 18:33 07/08/17 19:49 Bedside Glucose 123 112 135 Blood Gas Specimen Source Blood arterial Arterial Blood Date Drawn 07/08/2017 6:15:15 PM Arterial Blood pH (Temp corrected) 7.439 Arterial Blood pCO2 (Temp correct) 31.0 L Arterial Blood pO2 (Temp corrected) 76.7 L Arterial Blood HCO3 21.3 L Arterial Blood Base Excess -3.0 Arterial Blood Oxygen Saturation 97.2 Ilan Test ACCEPTAB Arterial Blood Gas Puncture Site Right HEEL Arterial Blood Carboxyhemoglobin 0.3 Arterial Blood Methemoglobin 0.3 Blood Gas A-a O2 Differential 358.5 H Oxyhemoglobin Percent 96.6 Total Hemoglobin 16.7 Blood Gas Temperature 33.5 Blood Gas Respiration Rate 20.0 Blood Gas Actual Respiration Rate 20 Blood Gas Modality VENT - AC FiO2 65.0 Blood Gas Tidal Volume 500.0 Blood Gas Low PEEP Setting 5.0 Blood Gas Critical Value Read Back Magda FIELDS RN Blood Gas Notified Whom RDIX Blood Gas Notified Time 07/08/2017 6:32:50 PM White Blood Count 10.0 Red Blood Count 5.07 Hemoglobin 15.6 Hematocrit 45.5 Mean Corpuscular Volume 89.7 Mean Corpuscular Hemoglobin 30.8 Mean Corpuscular Hemoglobin Concent 34.3 Red Cell Distribution Width 13.2 Platelet Count 135 L Mean Platelet Volume 11.3 H Neutrophils % 87.3 H Lymphocytes % 7.9 L Monocytes % 4.2 Eosinophils % 0.1 Basophils % 0.2 Nucleated Red Blood Cells % 0.0 Neutrophils # 8.7 H Lymphocytes # 0.8 Monocytes # 0.4 Eosinophils # 0.0 Basophils # 0.0 Nucleated Red Blood Cells # 0.0 Prothrombin Time 14.1 Prothrombin Time Ratio 1.1 INR International Normalized Ratio 1.09 Activated Partial Thromboplast Time 41.7 H Fibrinogen 522.0 #H Sodium Level 135 Potassium Level 3.5 Chloride Level 104 Carbon Dioxide Level 23 Anion Gap 12 Blood Urea Nitrogen 11 Creatinine 0.49 L Glucose Level 129 Calcium Level 7.4 L Phosphorus Level 2.8 Magnesium Level 1.5 L Troponin I 0.457 *H Amylase Level 60 Lipase 13 L Test 07/08/17 20:53 07/08/17 22:10 07/09/17 00:00 07/09/17 00:24 Bedside Glucose 128 136 117 Blood Gas Specimen Source Blood arterial Arterial Blood Date Drawn 07/09/2017 12:19:38 AM Arterial Blood pH (Temp corrected) 7.476 H Arterial Blood pCO2 (Temp correct) 28.9 L Arterial Blood pO2 (Temp corrected) 54.7 *L Arterial Blood HCO3 21.4 L Arterial Blood Base Excess -1.9 Arterial Blood Oxygen Saturation 93.8 L Ilan Test ACCEPTAB Arterial Blood Gas Puncture Site Right Radial Arterial Blood Carboxyhemoglobin 0 Arterial Blood Methemoglobin 0.3 Blood Gas A-a O2 Differential 382.1 H Oxyhemoglobin Percent 93.5 Total Hemoglobin 16.4 Blood Gas Temperature 34.0 Blood Gas Respiration Rate 20.0 Blood Gas Actual Respiration Rate 20 Blood Gas Modality VENT - AC FiO2 65.0 Blood Gas Tidal Volume 500.0 Blood Gas Low PEEP Setting 0 Blood Gas Inspiratory Pressure 31.0 Blood Gas Critical Value Read Back OCTAVIO,S. R.N. Blood Gas Notified Whom JHOANA [facility] Blood Gas Notified Time 07/09/2017 12:31:02 AM Test 07/09/17 01:03 07/09/17 01:59 07/09/17 04:04 07/09/17 05:00 White Blood Count 10.7 11.4 H Red Blood Count 5.06 5.19 Hemoglobin 15.7 15.7 Hematocrit 45.2 46.2 Mean Corpuscular Volume 89.3 89.0 Mean Corpuscular Hemoglobin 31.0 30.3 Mean Corpuscular Hemoglobin Concent 34.7 34.0 Red Cell Distribution Width 13.3 13.6 Platelet Count 141 155 Mean Platelet Volume 11.5 H 11.9 H Neutrophils % 87.7 H 89.9 H Lymphocytes % 7.4 L 6.1 L Monocytes % 4.3 3.5 Eosinophils % 0.2 0.1 Basophils % 0.1 0.1 Nucleated Red Blood Cells % 0.0 0.0 Neutrophils # 9.4 H 10.3 H Lymphocytes # 0.8 0.7 L Monocytes # 0.5 0.4 Eosinophils # 0.0 0.0 Basophils # 0.0 0.0 Nucleated Red Blood Cells # 0.0 0.0 Prothrombin Time 14.4 H 15.0 H Prothrombin Time Ratio 1.1 1.2 INR International Normalized Ratio 1.12 1.17 Activated Partial Thromboplast Time 39.3 H 38.0 H Fibrinogen 550.0 #H 581.0 #H Sodium Level 136 136 Potassium Level 3.4 L 3.6 Chloride Level 105 103 Carbon Dioxide Level 25 25 Anion Gap 9 12 Blood Urea Nitrogen 10 11 Creatinine 0.57 L 0.65 Glucose Level 130 163 Calcium Level 7.8 L 7.7 L Phosphorus Level 2.9 3.4 Magnesium Level 1.5 L 2.3 Amylase Level 59 70 Lipase 13 L 10 L Bedside Glucose 109 142 Test 07/09/17 05:54 07/09/17 06:00 07/09/17 08:00 07/09/17 08:03 Bedside Glucose 146 139 Blood Gas Specimen Source Blood arterial Blood arterial Arterial Blood Date Drawn 07/09/2017 6:15:02 AM 07/09/2017 8:00:50 AM Arterial Blood pH (Temp corrected) 7.332 L 7.345 L Arterial Blood pCO2 (Temp correct) 44.3 43.5 Arterial Blood pO2 (Temp corrected) 61.5 L 76.8 L Arterial Blood HCO3 23.2 23.2 Arterial Blood Base Excess -3.3 L -2.6 Arterial Blood Oxygen Saturation 92.3 L 94.4 L Ilan Test ACCEPTAB ACCEPTAB Arterial Blood Gas Puncture Site Right Radial Right Radial Arterial Blood Carboxyhemoglobin 0.3 0.3 Arterial Blood Methemoglobin 0.4 0.4 Blood Gas A-a O2 Differential 464.6 H 592.7 H Oxyhemoglobin Percent 91.7 L 93.7 Total Hemoglobin 16.9 16.8 Blood Gas Temperature 35.9 37.0 Blood Gas Respiration Rate 18.0 18.0 Blood Gas Actual Respiration Rate 18 28 Blood Gas Modality VENT - AC VENT - AC FiO2 80.0 100.0 Blood Gas Tidal Volume 500.0 500.0 Blood Gas Low PEEP Setting 0 10.0 Blood Gas Notified Whom CHRISTINE KATZ Blood Gas Notified Time 07/09/2017 6:29:45 AM 07/09/2017 8:11:47 AM Test 07/09/17 09:56 07/09/17 11:57 Bedside Glucose 146 129 Medications Medications Current Medications Cefepime HCl (Maxipime 2gm/50 ml (Pmx)) 50 ml @ 100 mls/hr Q12 IVPB Last administered on 07/09/17 08:49; Admin Dose 100 MLS/HR; Start 07/07/17 at 15:30 Acetaminophen (Tylenol Supp) 650 mg Q4H PRN OR TEMP > 37C; Start 07/07/17 at 17 :00 Acetaminophen (Tylenol Liquid) 650 mg Q4H PRN PO TEMP > 37C; Start 07/07/17 at 17:00 Acetaminophen (Tylenol Supp) 500 mg Q6H OR Last administered on 07/09/17 05: 31; Admin Dose 500 MG; Start 07/08/17 at 17:00 Acetaminophen (Tylenol Liquid) 500 mg Q6H PO Last administered on 07/09/17 10 :52; Admin Dose 500 MG; Start 07/08/17 at 17:00 Meperidine HCl (Demerol) 12.5 mg Q4H PRN IV POST OPERATIVE SHIVERING Last administered on 07/08/17 19:00; Admin Dose 12.5 MG; Start 07/07/17 at 17:00 Meperidine HCl (Demerol) 25 mg Q4H PRN IV POST OPERATIVE SHIVERING Last administered on 07/09/17 03:49; Admin Dose 25 MG; Start 07/07/17 at 17:00 Eye Lubricant (Akwa Oint) 1 applic Q6 BOTH EYES Last administered on 10:56; Admin Dose 1 APPLIC; Start 07/07/17 at 18:00 Eye Lubricant (Artificial Tears Oph) 2 drop Q6 BOTH EYES Last administered on 07/09/17 10:55; Admin Dose 2 DROP; Start 07/07/17 at 18:00 Diagnostic Test (Pha) (Accu-Chek) 1 ea Q1H XX Last administered on 07/09/17 12:00; Admin Dose 1 EA; Start 07/07/17 at 17:00 Dextrose (D50w Syringe) 25 ml Q15M PRN IV Till BS 80 mg/dL or above x2; Start 07/07/17 at 17:00 Dextrose (D50w Syringe) 50 ml Q15M PRN IV Till BS 80 mg/dL or above x2; Start 07/07/17 at 17:00 Acetaminophen (Tylenol Tab) 650 mg Q6H PRN PO PAIN LEVEL 1-3 OR FEVER; Start 07/07/17 at 17:30 Acetaminophen/ Hydrocodone Bitart ([place] (5/325)) 1 tab Q6H PRN PO MODERATE PAIN LEVEL 4-6; Start 07/07/17 at 17:30 Morphine Sulfate (morphine) 2 mg Q4H PRN IV SEVERE PAIN LEVEL 7-10 Last administered on 07/09/17 11:06; Admin Dose 2 MG; Start 07/07/17 at 17:30 Enoxaparin Sodium (Lovenox) 40 mg DAILY SC Last administered on 07/09/17 08: 50; Admin Dose 40 MG; Start 07/08/17 at 09:00 Miscellaneous Information (* Miscellaneous Pharmacy Order) Hold all Metformin ... ONCE XX Last administered on 07/08/17 21:00; Admin Dose 1 EA; Start at 21:00; Stop 07/09/17 at 20:59 Aspirin 81 mg 81 mg DAILY PO Last administered on 07/09/17 08:49; Admin Dose 81 MG; Start 07/08/17 at 09:00 Dextrose/Sodium Chloride (D5-1/2ns) 1,000 ml @ 75 mls/hr [id number] IV Last administered on 07/09/17 12:07; Admin Dose 75 MLS/HR; Start 07/07/17 at 21:30 Famotidine (Pepcid Iv) 20 mg BID IV Last administered on 07/09/17 08:49; Admin Dose 20 MG; Start 07/09/17 at 09:00 DENISSE WILLIAMSON MD Jul 09, 2017 12:30
[2017-07-09] MEDS ORDERED: FENTAnyl (DRIP) 1000 mcg/100mL 100 ML IV ONE (12:42)
[2017-07-09] MEDS ORDERED: FUROSEMIDE 40 MG INJ ONE (12:45)
[2017-07-09] MEDS ORDERED: FUROSEMIDE 40 MG INJ IV ONE (13:00)
[2017-07-09] MEDS: FENTAnyl (DRIP) 1000 mcg/100mL 100 ML IV SCH (15:06)
--- NOTE | 2017-07-09 15:59 | PN ---
Date/Time of Note Date/Time of Note DATE: 07/09/17 TIME: 15:56 Assessment/Plan VTE Prophylaxis VTE Prophylaxis Intervention: LMWH Assessment/Plan Chief Complaint/Hosp Course 1. 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 Acute respiratory failure secondary to above Continue vent support Pulmonology following 3. Elevated LFTs secondary to cardiac arrest Monitor 4. Pneumothorax Appears to have resolved Pulmonology following 5. Leukocytosis-likely reactive Resolved Prophylaxis: Lovenox Problems: Subjective 24 Hr Interval Summary Subjective hx not possible: pt non-verbal Exam/Review of Systems Vital Signs Vitals Vital Signs Date Time Temp Pulse Resp B/P Pulse Ox O2 Delivery O2 Flow Rate FiO2 07/09/17 15:30 91 14 107/67 07/09/17 15:00 100 Mechanical Ventilator 07/09/17 12:00 99.6 07/09/17 11:00 100 Intake and Output 07/08/17 07/08/17 07/09/17 15:00 23:00 07:00 Intake Total 777.51 ml 1725.55 ml 627.74 ml Output Total 388 ml 350 ml 425 ml Balance 389.51 ml 1375.55 ml 202.74 ml Exam Constitutional: non-verbal ENMT: intubated Respiratory: clear to auscultation Cardiovascular: regular rate and rhythm Gastrointestinal: soft, No distended Musculoskeletal: nl extremities to inspection Results Result Diagram: 07/09/17 0500 07/09/17 0500 Results 24 hrs Laboratory Tests Test 07/08/17 16:06 07/08/17 17:06 07/08/17 18:00 07/08/17 18:33 Bedside Glucose 121 123 112 Blood Gas Specimen Source Blood arterial Arterial Blood Date Drawn 07/08/2017 6:15:15 PM Arterial Blood pH (Temp corrected) 7.439 Arterial Blood pCO2 (Temp correct) 31.0 L Arterial Blood pO2 (Temp corrected) 76.7 L Arterial Blood HCO3 21.3 L Arterial Blood Base Excess -3.0 Arterial Blood Oxygen Saturation 97.2 Ilan Test ACCEPTAB Arterial Blood Gas Puncture Site Right HEEL Arterial Blood Carboxyhemoglobin 0.3 Arterial Blood Methemoglobin 0.3 Blood Gas A-a O2 Differential 358.5 H Oxyhemoglobin Percent 96.6 Total Hemoglobin 16.7 Blood Gas Temperature 33.5 Blood Gas Respiration Rate 20.0 Blood Gas Actual Respiration Rate 20 Blood Gas Modality VENT - AC FiO2 65.0 Blood Gas Tidal Volume 500.0 Blood Gas Low PEEP Setting 5.0 Blood Gas Critical Value Read Back Magda FIELDS RN Blood Gas Notified Whom RDIX Blood Gas Notified Time 07/08/2017 6:32:50 PM White Blood Count 10.0 Red Blood Count 5.07 Hemoglobin 15.6 Hematocrit 45.5 Mean Corpuscular Volume 89.7 Mean Corpuscular Hemoglobin 30.8 Mean Corpuscular Hemoglobin Concent 34.3 Red Cell Distribution Width 13.2 Platelet Count 135 L Mean Platelet Volume 11.3 H Neutrophils % 87.3 H Lymphocytes % 7.9 L Monocytes % 4.2 Eosinophils % 0.1 Basophils % 0.2 Nucleated Red Blood Cells % 0.0 Neutrophils # 8.7 H Lymphocytes # 0.8 Monocytes # 0.4 Eosinophils # 0.0 Basophils # 0.0 Nucleated Red Blood Cells # 0.0 Prothrombin Time 14.1 Prothrombin Time Ratio 1.1 INR International Normalized Ratio 1.09 Activated Partial Thromboplast Time 41.7 H Fibrinogen 522.0 #H Sodium Level 135 Potassium Level 3.5 Chloride Level 104 Carbon Dioxide Level 23 Anion Gap 12 Blood Urea Nitrogen 11 Creatinine 0.49 L Glucose Level 129 Calcium Level 7.4 L Phosphorus Level 2.8 Magnesium Level 1.5 L Troponin I 0.457 *H Amylase Level 60 Lipase 13 L Test 07/08/17 19:49 07/08/17 20:53 07/08/17 22:10 07/09/17 00:00 Bedside Glucose 135 128 136 117 Test 07/09/17 00:24 07/09/17 01:03 07/09/17 01:59 07/09/17 04:04 Blood Gas Specimen Source Blood arterial Arterial Blood Date Drawn 07/09/2017 12:19:38 AM Arterial Blood pH (Temp corrected) 7.476 H Arterial Blood pCO2 (Temp correct) 28.9 L Arterial Blood pO2 (Temp corrected) 54.7 *L Arterial Blood HCO3 21.4 L Arterial Blood Base Excess -1.9 Arterial Blood Oxygen Saturation 93.8 L Ilan Test ACCEPTAB Arterial Blood Gas Puncture Site Right Radial Arterial Blood Carboxyhemoglobin 0 Arterial Blood Methemoglobin 0.3 Blood Gas A-a O2 Differential 382.1 H Oxyhemoglobin Percent 93.5 Total Hemoglobin 16.4 Blood Gas Temperature 34.0 Blood Gas Respiration Rate 20.0 Blood Gas Actual Respiration Rate 20 Blood Gas Modality VENT - AC FiO2 65.0 Blood Gas Tidal Volume 500.0 Blood Gas Low PEEP Setting 0 Blood Gas Inspiratory Pressure 31.0 Blood Gas Critical Value Read Back BAHAI,S. R.N. Blood Gas Notified Whom [facility] Blood Gas Notified Time 07/09/2017 12:31:02 AM White Blood Count 10.7 Red Blood Count 5.06 Hemoglobin 15.7 Hematocrit 45.2 Mean Corpuscular Volume 89.3 Mean Corpuscular Hemoglobin 31.0 Mean Corpuscular Hemoglobin Concent 34.7 Red Cell Distribution Width 13.3 Platelet Count 141 Mean Platelet Volume 11.5 H Neutrophils % 87.7 H Lymphocytes % 7.4 L Monocytes % 4.3 Eosinophils % 0.2 Basophils % 0.1 Nucleated Red Blood Cells % 0.0 Neutrophils # 9.4 H Lymphocytes # 0.8 Monocytes # 0.5 Eosinophils # 0.0 Basophils # 0.0 Nucleated Red Blood Cells # 0.0 Prothrombin Time 14.4 H Prothrombin Time Ratio 1.1 INR International Normalized Ratio 1.12 Activated Partial Thromboplast Time 39.3 H Fibrinogen 550.0 #H Sodium Level 136 Potassium Level 3.4 L Chloride Level 105 Carbon Dioxide Level 25 Anion Gap 9 Blood Urea Nitrogen 10 Creatinine 0.57 L Glucose Level 130 Calcium Level 7.8 L Phosphorus Level 2.9 Magnesium Level 1.5 L Amylase Level 59 Lipase 13 L Bedside Glucose 109 142 Test 07/09/17 05:00 07/09/17 05:54 07/09/17 06:00 07/09/17 08:00 White Blood Count 11.4 H Red Blood Count 5.19 Hemoglobin 15.7 Hematocrit 46.2 Mean Corpuscular Volume 89.0 Mean Corpuscular Hemoglobin 30.3 Mean Corpuscular Hemoglobin Concent 34.0 Red Cell Distribution Width 13.6 Platelet Count 155 Mean Platelet Volume 11.9 H Neutrophils % 89.9 H Lymphocytes % 6.1 L Monocytes % 3.5 Eosinophils % 0.1 Basophils % 0.1 Nucleated Red Blood Cells % 0.0 Neutrophils # 10.3 H Lymphocytes # 0.7 L Monocytes # 0.4 Eosinophils # 0.0 Basophils # 0.0 Nucleated Red Blood Cells # 0.0 Prothrombin Time 15.0 H Prothrombin Time Ratio 1.2 INR International Normalized Ratio 1.17 Activated Partial Thromboplast Time 38.0 H Fibrinogen 581.0 #H Sodium Level 136 Potassium Level 3.6 Chloride Level 103 Carbon Dioxide Level 25 Anion Gap 12 Blood Urea Nitrogen 11 Creatinine 0.65 Glucose Level 163 Calcium Level 7.7 L Phosphorus Level 3.4 Magnesium Level 2.3 Amylase Level 70 Lipase 10 L Bedside Glucose 146 Blood Gas Specimen Source Blood arterial Blood arterial Arterial Blood Date Drawn 07/09/2017 6:15:02 AM 07/09/2017 8:00:50 AM Arterial Blood pH (Temp corrected) 7.332 L 7.345 L Arterial Blood pCO2 (Temp correct) 44.3 43.5 Arterial Blood pO2 (Temp corrected) 61.5 L 76.8 L Arterial Blood HCO3 23.2 23.2 Arterial Blood Base Excess -3.3 L -2.6 Arterial Blood Oxygen Saturation 92.3 L 94.4 L Ilan Test ACCEPTAB ACCEPTAB Arterial Blood Gas Puncture Site Right Radial Right Radial Arterial Blood Carboxyhemoglobin 0.3 0.3 Arterial Blood Methemoglobin 0.4 0.4 Blood Gas A-a O2 Differential 464.6 H 592.7 H Oxyhemoglobin Percent 91.7 L 93.7 Total Hemoglobin 16.9 16.8 Blood Gas Temperature 35.9 37.0 Blood Gas Respiration Rate 18.0 18.0 Blood Gas Actual Respiration Rate 18 28 Blood Gas Modality VENT - AC VENT - AC FiO2 80.0 100.0 Blood Gas Tidal Volume 500.0 500.0 Blood Gas Low PEEP Setting 0 10.0 Blood Gas Notified Whom CHRISTINE KATZ Blood Gas Notified Time 07/09/2017 6:29:45 AM 07/09/2017 8:11:47 AM Test 07/09/17 08:03 07/09/17 09:56 07/09/17 11:57 07/09/17 13:55 Bedside Glucose 139 146 129 112 Medications Medications Current Medications Cefepime HCl (Maxipime 2gm/50 ml (Pmx)) 50 ml @ 100 mls/hr Q12 IVPB Last administered on 07/09/17 08:49; Admin Dose 100 MLS/HR; Start 07/07/17 at 15:30 Acetaminophen (Tylenol Supp) 650 mg Q4H PRN [place] TEMP > 37C; Start 07/07/17 at 17 :00 Acetaminophen (Tylenol Liquid) 650 mg Q4H PRN PO TEMP > 37C; Start 07/07/17 at 17:00 Acetaminophen (Tylenol Supp) 500 mg Q6H [place] Last administered on 07/09/17 05: 31; Admin Dose 500 MG; Start 07/08/17 at 17:00 Acetaminophen (Tylenol Liquid) 500 mg Q6H PO Last administered on 07/09/17 10 :52; Admin Dose 500 MG; Start 07/08/17 at 17:00 Meperidine HCl (Demerol) 12.5 mg Q4H PRN IV POST OPERATIVE SHIVERING Last administered on 07/08/17 19:00; Admin Dose 12.5 MG; Start 07/07/17 at 17:00 Meperidine HCl (Demerol) 25 mg Q4H PRN IV POST OPERATIVE SHIVERING Last administered on 07/09/17 03:49; Admin Dose 25 MG; Start 07/07/17 at 17:00 Eye Lubricant (Akwa Oint) 1 applic Q6 BOTH EYES Last administered on 10:56; Admin Dose 1 APPLIC; Start 07/07/17 at 18:00 Eye Lubricant (Artificial Tears Oph) 2 drop Q6 BOTH EYES Last administered on 07/09/17 10:55; Admin Dose 2 DROP; Start 07/07/17 at 18:00 Diagnostic Test (Pha) (Accu-Chek) 1 ea Q1H XX Last administered on 07/09/17 13:57; Admin Dose 1 EA; Start 07/07/17 at 17:00 Dextrose (D50w Syringe) 25 ml Q15M PRN IV Till BS 80 mg/dL or above x2; Start 07/07/17 at 17:00 Dextrose (D50w Syringe) 50 ml Q15M PRN IV Till BS 80 mg/dL or above x2; Start 07/07/17 at 17:00 Acetaminophen (Tylenol Tab) 650 mg Q6H PRN PO PAIN LEVEL 1-3 OR FEVER; Start 07/07/17 at 17:30 Acetaminophen/ Hydrocodone Bitart ([place] (5/325)) 1 tab Q6H PRN PO MODERATE PAIN LEVEL 4-6; Start 07/07/17 at 17:30 Morphine Sulfate (morphine) 2 mg Q4H PRN IV SEVERE PAIN LEVEL 7-10 Last administered on 07/09/17 11:06; Admin Dose 2 MG; Start 07/07/17 at 17:30 Enoxaparin Sodium (Lovenox) 40 mg DAILY SC Last administered on 07/09/17 08: 50; Admin Dose 40 MG; Start 07/08/17 at 09:00 Miscellaneous Information (* Miscellaneous Pharmacy Order) Hold all Metformin ... ONCE XX Last administered on 07/08/17 21:00; Admin Dose 1 EA; Start at 21:00; Stop 07/09/17 at 20:59 Aspirin 81 mg 81 mg DAILY PO Last administered on 07/09/17 08:49; Admin Dose 81 MG; Start 07/08/17 at 09:00 Dextrose/Sodium Chloride (D5-1/2ns) 1,000 ml @ 75 mls/hr [id number] IV Last administered on 07/09/17 12:07; Admin Dose 75 MLS/HR; Start 07/07/17 at 21:30 Famotidine 20 mg 20 mg BID IV Last administered on 07/09/17 08:49; Admin Dose 20 MG; Start 07/09/17 at 09:00 Fentanyl (Sublimaze) 100 ml @ 2.5 mls/hr TITRATE IV Last administered on 07/09 15:06; Admin Dose 2.5 MLS/HR; Start 07/09/17 at 13:00 MEERA DAVIES Jul 09, 2017 15:59
[2017-07-10] VITALS (52 sets, daily range): BP systolic 82–150; BP diastolic 50–96; PULSE 72–124; RESP 10–25
[2017-07-10] MEDS: ACETAMINOPHEN 650MG/20.3ML CUP PO SCH ×4 (00:04→17:55)
[2017-07-10] MEDS: ARTIFICIAL TEARS 15 ML OPH BOTH EYES SCH ×4 (00:05→17:56)
[2017-07-10] MEDS: ACCU-CHEK XX SCH ×10 (00:06→08:49)
[2017-07-10] MEDS: OCULAR LUBRICANT 3.5 GM OPH OINT BOTH EYES SCH ×4 (00:06→17:54)
[2017-07-10] MEDS: PROPOFOL 100 ML IV SCH ×3 (00:58→12:33)
[2017-07-10] MEDS: DEXTROSE 5%-0.45% NACL 1,000 ML IV SCH ×2 (02:14→12:33)
[2017-07-10 04:51] LABS: ABNORMAL IP MESSAGE 1; BASOPHILS % 0.2 % (0.0-2.0); EOSINOPHILS % 0.2 % (0.0-7.0); HEMATOCRIT 39.2 % (42.0-52.0); LYMPHOCYTES # 0.5 10^3/ul (0.8-2.9); LYMPHOCYTES % 9.8 % (15.0-51.0); MEAN CORPUSCULAR HEMOGLOBIN 30.4 pg (29.0-33.0); MEAN CORPUSCULAR HGB CONC 33.2 g/dl (32.0-37.0); MEAN CORPUSCULAR VOLUME 91.8 fl (82.0-101.0); MEAN PLATELET VOLUME 12.5 fl (7.4-10.4); MONOCYTE # 0.2 10^3/ul (0.3-0.9); MONOCYTES % 3.6 % (0.0-11.0); NEUTROPHIL # 4.7 10^3/ul (1.6-7.5); NEUTROPHILS % 85.1 % (39.0-77.0); PLATELET COUNT 114 10^3/UL (140-415); POSITIVE DIFF @See below; RED BLOOD COUNT 4.27 10^6/ul (4.70-6.10); RED CELL DISTRIBUTION WIDTH 13.8 % (11.5-14.5); WHITE BLOOD COUNT 5.5 10^3/ul (4.8-10.8)
[2017-07-10] MEDS: ACETAMINOPHEN 650 MG SUPP PR SCH ×4 (04:59→23:00)
[2017-07-10 05:14] LABS: CALCIUM 7.5 mg/dl (8.4-10.2); CREATININE 0.91 mg/dl (0.61-1.24); MAGNESIUM 1.7 mg/dl (1.7-2.5); PHOSPHORUS 3.5 mg/dl (2.5-4.9); POTASSIUM 4.2 mmol/L (3.5-5.1)
--- NOTE | 2017-07-10 07:18 | RADRPT ---
PROCEDURE: XR Chest. CLINICAL INDICATION: Shortness of breath. TECHNIQUE: Single frontal view. COMPARISON: 07/09/2017. FINDINGS: The endotracheal tube tip is 8 cm above the jim and should be advanced approximately 4 cm. The ri ght subclavian vein catheter tip is in the upper right atrium. The nasogastric tube tip is in the st omach. Atelectasis or pneumonia at the lung bases is slightly improved. The lungs are otherwise gibson r. The heart is enlarged. There are sternal wires. There is calcification in the aorta consistent with atherosclerosis. There is no pleural effusion. There is no pneumothorax. IMPRESSION: 1. The endotracheal tube should be advanced approximately 4 cm. 2. Tubes and lines otherwise in satisfactory position. 3. Slightly improved appearance of the lungs. 4. No other change from the 07/09/2017 chest radiograph. RPTAT: QQ .Juan Luis Nina MD, Date Time Electronically viewed and signed by .Juan Luis Nina MD, on 07/10/2017 07:18 .R/
[2017-07-10] MEDS: CEFEPIME 2GM/50 ML (PMX) 50 ML IVPB SCH ×2 (08:48→20:12)
[2017-07-10] MEDS: ASPIRIN (EC) 81 MG TAB PO SCH (08:48)
[2017-07-10] MEDS: FAMOTIDINE 20 MG INJ IV SCH ×2 (08:48→20:12)
[2017-07-10] MEDS: ENOXAPARIN 40 MG/0.4 ML SYG SC SCH (08:50)
--- NOTE | 2017-07-10 10:14 | CONS ---
Date/Time of Note Date/Time of Note DATE: 07/10/17 TIME: 10:11 Assessment/Plan Assessment/Plan Additional Assessment/Plan Chest x-ray was reviewed from today which is showing improvement in bibasilar atelectasis/effusions. Endotracheal tube is at an adequate level. Ventilator setting; patient is on assist control of 18, tidal volume 500, PEEP of 10, 50% FiO2. Patient currently on fentanyl 30 mics per hour, propofol 30 mics per kilogram per minute. Assessment and recommendations; 1. Patient admitted with cardiac arrest status post hypothermia protocol with persistently poor mental status, requiring continuous IV sedation. 2. Some element of aspiration pneumonia, clinically and radiologically improved with improving oxygenation. 3. Status post emergent coronary angiography, findings not amenable to any intervention. 4. Thrombocytopenia, without any overt bleeding. Continue current supportive care. Wean off sedation as tolerated. Wean down FiO2 as well as PEEP to keep O2 saturation around 92-94%. Prognosis depends entirely upon adequate mental status recovery. 35 minutes of critical care time was spent evaluating the patient. Consultation Date/Type/Reason Admit Date/Time Jul 07, 2017 at 16:46 Type of Consultation: Pulmonary/critical care Referring Provider: PRINCE HASSAN 24 HR Interval Summary Free Text/Dictation Patient's condition remains critical. Requiring continuous sedation because of agitation whenever sedation dose is decreased. Patient however has remained hemodynamically stable. General exam; elderly male, orally intubated, sedated, currently in no distress. Exam/Review of Systems Vital Signs Vitals Vital Signs Date Time Temp Pulse Resp B/P Pulse Ox O2 Delivery O2 Flow Rate FiO2 07/10/17 08:00 81 07/10/17 05:00 23 99 60 07/10/17 05:00 99.1 93/60 Mechanical Ventilator Intake and Output 07/09/17 07/09/17 07/10/17 15:00 23:00 07:00 Intake Total 576.4 ml 947.2 ml 625.8 ml Output Total 404 ml 881 ml 0 ml Balance 172.4 ml 66.2 ml 625.8 ml Exam H ENT exam; supple neck, no JVD. No lymphadenopathy. Midline trachea. No thyromegaly. Orally intubated. Patient has fair dentition. Pupils are small bilaterally. No neck masses. Chest exam; clear to auscultation. S1-S2 audible, no murmurs. Regular rhythm. There is a well-healed sternal scar. Abdomen exam; soft, protuberant. No organomegaly. Bowel sounds are audible. Extremity exam; no edema. Pulses 1+ bilaterally. UPHOLSTERY TRIMMER exam; patient is sedated. Results Result Diagram: 07/10/17 0400 07/10/17 0400 Results 24 hrs Laboratory Tests Test 07/09/17 11:57 07/09/17 13:55 07/09/17 15:58 07/09/17 17:33 Bedside Glucose 129 112 106 98 Test 07/09/17 20:19 07/09/17 22:15 07/10/17 00:03 07/10/17 02:12 Bedside Glucose 106 130 123 117 Test 07/10/17 03:51 07/10/17 04:00 07/10/17 06:43 07/10/17 08:38 Bedside Glucose 119 130 108 White Blood Count 5.5 # Red Blood Count 4.27 L Hemoglobin 13.0 L Hematocrit 39.2 L Mean Corpuscular Volume 91.8 Mean Corpuscular Hemoglobin 30.4 Mean Corpuscular Hemoglobin Concent 33.2 Red Cell Distribution Width 13.8 Platelet Count 114 #L Mean Platelet Volume 12.5 H Neutrophils % 85.1 H Lymphocytes % 9.8 L Monocytes % 3.6 Eosinophils % 0.2 Basophils % 0.2 Nucleated Red Blood Cells % 0.0 Neutrophils # 4.7 Lymphocytes # 0.5 L Monocytes # 0.2 L Eosinophils # 0.0 Basophils # 0.0 Nucleated Red Blood Cells # 0.0 Sodium Level 135 Potassium Level 4.2 Chloride Level 104 Carbon Dioxide Level 23 Anion Gap 12 Blood Urea Nitrogen 15 Creatinine 0.91 Glucose Level 119 # Calcium Level 7.5 L Phosphorus Level 3.5 Magnesium Level 1.7 Medications Medications Current Medications Cefepime HCl (Maxipime 2gm/50 ml (Pmx)) 50 ml @ 100 mls/hr Q12 IVPB Last administered on 07/10/17t 08:48; Admin Dose 100 MLS/HR; Start 07/07/17 at 15:30 Acetaminophen (Tylenol Supp) 650 mg Q4H PRN [place] TEMP > 37C; Start 07/07/17 at 17 :00 Acetaminophen (Tylenol Liquid) 650 mg Q4H PRN PO TEMP > 37C; Start 07/07/17 at 17:00 Acetaminophen (Tylenol Supp) 500 mg Q6H [place] Last administered on 07/10/17 04: 59; Admin Dose 500 MG; Start 07/08/17 at 17:00 Acetaminophen (Tylenol Liquid) 500 mg Q6H PO Last administered on 07/10/17 00 :04; Admin Dose 500 MG; Start 07/08/17 at 17:00 Meperidine HCl (Demerol) 12.5 mg Q4H PRN IV POST OPERATIVE SHIVERING Last administered on 07/08/17 19:00; Admin Dose 12.5 MG; Start 07/07/17 at 17:00 Meperidine HCl (Demerol) 25 mg Q4H PRN IV POST OPERATIVE SHIVERING Last administered on 07/09/17 03:49; Admin Dose 25 MG; Start 07/07/17 at 17:00 Eye Lubricant (Akwa Oint) 1 applic Q6 BOTH EYES Last administered on 06:44; Admin Dose 1 APPLIC; Start 07/07/17 at 18:00 Eye Lubricant (Artificial Tears Oph) 2 drop Q6 BOTH EYES Last administered on 07/10/17 06:44; Admin Dose 2 DROP; Start 07/07/17 at 18:00 Diagnostic Test (Pha) (Accu-Chek) 1 ea Q1H XX Last administered on 07/10/17 08:40; Admin Dose 1 EA; Start 07/07/17 at 17:00 Dextrose (D50w Syringe) 25 ml Q15M PRN IV Till BS 80 mg/dL or above x2; Start 07/07/17 at 17:00 Dextrose (D50w Syringe) 50 ml Q15M PRN IV Till BS 80 mg/dL or above x2; Start 07/07/17 at 17:00 Acetaminophen (Tylenol Tab) 650 mg Q6H PRN PO PAIN LEVEL 1-3 OR FEVER; Start 07/07/17 at 17:30 Acetaminophen/ Hydrocodone Bitart ([place] (5/325)) 1 tab Q6H PRN PO MODERATE PAIN LEVEL 4-6; Start 07/07/17 at 17:30 Morphine Sulfate (morphine) 2 mg Q4H PRN IV SEVERE PAIN LEVEL 7-10 Last administered on 07/09/17 11:06; Admin Dose 2 MG; Start 07/07/17 at 17:30 Enoxaparin Sodium (Lovenox) 40 mg DAILY SC Last administered on 07/10/17 08: 50; Admin Dose 40 MG; Start 07/08/17 at 09:00 Aspirin 81 mg 81 mg DAILY PO Last administered on 07/10/17 08:48; Admin Dose 81 MG; Start 07/08/17 at 09:00 Dextrose/Sodium Chloride (D5-1/2ns) 1,000 ml @ 75 mls/hr [id number] IV Last administered on 07/10/17 02:14; Admin Dose 75 MLS/HR; Start 07/07/17 at 21:30 Famotidine 20 mg 20 mg BID IV Last administered on 07/10/17 08:48; Admin Dose 20 MG; Start 07/09/17 at 09:00 Fentanyl (Sublimaze) 100 ml @ 2.5 mls/hr TITRATE IV Last administered on 07/09 15:06; Admin Dose 2.5 MLS/HR; Start 07/09/17 at 13:00 KANU GRESHAM Jul 10, 2017 10:14
--- NOTE | 2017-07-10 11:52 | PN ---
Date/Time of Note Date/Time of Note DATE: 07/10/17 TIME: 11:50 Assessment/Plan VTE Prophylaxis VTE Prophylaxis Intervention: LMWH Assessment/Plan Chief Complaint/Hosp Course 1. 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 Acute respiratory failure secondary to above Continue vent support Pulmonology following 3. Elevated LFTs secondary to cardiac arrest Monitor 4. Pneumothorax Appears to have resolved Pulmonology following 5. Leukocytosis-likely reactive Resolved Prophylaxis: Lovenox Problems: Subjective 24 Hr Interval Summary Subjective hx not possible: pt non-verbal Exam/Review of Systems Vital Signs Vitals Vital Signs Date Time Temp Pulse Resp B/P Pulse Ox O2 Delivery O2 Flow Rate FiO2 07/10/17 11:30 81 99/56 99 07/10/17 11:00 20 Mechanical Ventilator 07/10/17 08:00 99.0 07/10/17 05:00 60 Intake and Output 07/09/17 07/09/17 07/10/17 15:00 23:00 07:00 Intake Total 576.4 ml 947.2 ml 625.8 ml Output Total 404 ml 881 ml 0 ml Balance 172.4 ml 66.2 ml 625.8 ml Exam Constitutional: non-verbal ENMT: intubated Respiratory: clear to auscultation Cardiovascular: regular rate and rhythm Gastrointestinal: soft, No distended Musculoskeletal: nl extremities to inspection Results Result Diagram: 07/10/17 0400 07/10/17 0400 Results 24 hrs Laboratory Tests Test 07/09/17 11:57 07/09/17 13:55 07/09/17 15:58 07/09/17 17:33 Bedside Glucose 129 112 106 98 Test 07/09/17 20:19 07/09/17 22:15 07/10/17 00:03 07/10/17 02:12 Bedside Glucose 106 130 123 117 Test 07/10/17 03:51 07/10/17 04:00 07/10/17 06:43 07/10/17 08:38 Bedside Glucose 119 130 108 White Blood Count 5.5 # Red Blood Count 4.27 L Hemoglobin 13.0 L Hematocrit 39.2 L Mean Corpuscular Volume 91.8 Mean Corpuscular Hemoglobin 30.4 Mean Corpuscular Hemoglobin Concent 33.2 Red Cell Distribution Width 13.8 Platelet Count 114 #L Mean Platelet Volume 12.5 H Neutrophils % 85.1 H Lymphocytes % 9.8 L Monocytes % 3.6 Eosinophils % 0.2 Basophils % 0.2 Nucleated Red Blood Cells % 0.0 Neutrophils # 4.7 Lymphocytes # 0.5 L Monocytes # 0.2 L Eosinophils # 0.0 Basophils # 0.0 Nucleated Red Blood Cells # 0.0 Sodium Level 135 Potassium Level 4.2 Chloride Level 104 Carbon Dioxide Level 23 Anion Gap 12 Blood Urea Nitrogen 15 Creatinine 0.91 Glucose Level 119 # Calcium Level 7.5 L Phosphorus Level 3.5 Magnesium Level 1.7 Test 07/10/17 10:23 Bedside Glucose 109 Medications Medications Current Medications Cefepime HCl (Maxipime 2gm/50 ml (Pmx)) 50 ml @ 100 mls/hr Q12 IVPB Last administered on 07/10/17 08:48; Admin Dose 100 MLS/HR; Start 07/07/17 at 15:30 Acetaminophen (Tylenol Supp) 650 mg Q4H PRN [place] TEMP > 37C; Start 07/07/17 at 17 :00 Acetaminophen (Tylenol Liquid) 650 mg Q4H PRN PO TEMP > 37C; Start 07/07/17 at 17:00 Acetaminophen (Tylenol Supp) 500 mg Q6H [place] Last administered on 07/10/17 04: 59; Admin Dose 500 MG; Start 07/08/17 at 17:00 Acetaminophen (Tylenol Liquid) 500 mg Q6H PO Last administered on 07/10/17 00 :04; Admin Dose 500 MG; Start 07/08/17 at 17:00 Meperidine HCl (Demerol) 12.5 mg Q4H PRN IV POST OPERATIVE SHIVERING Last administered on 07/08/17 19:00; Admin Dose 12.5 MG; Start 07/07/17 at 17:00 Meperidine HCl (Demerol) 25 mg Q4H PRN IV POST OPERATIVE SHIVERING Last administered on 07/09/17 03:49; Admin Dose 25 MG; Start 07/07/17 at 17:00 Eye Lubricant (Akwa Oint) 1 applic Q6 BOTH EYES Last administered on 06:44; Admin Dose 1 APPLIC; Start 07/07/17 at 18:00 Eye Lubricant (Artificial Tears Oph) 2 drop Q6 BOTH EYES Last administered on 07/10/17 06:44; Admin Dose 2 DROP; Start 07/07/17 at 18:00 Acetaminophen (Tylenol Tab) 650 mg Q6H PRN PO PAIN LEVEL 1-3 OR FEVER; Start 07/07/17 at 17:30 Acetaminophen/ Hydrocodone Bitart ([place] (5/325)) 1 tab Q6H PRN PO MODERATE PAIN LEVEL 4-6; Start 07/07/17 at 17:30 Morphine Sulfate (morphine) 2 mg Q4H PRN IV SEVERE PAIN LEVEL 7-10 Last administered on 07/09/17 11:06; Admin Dose 2 MG; Start 07/07/17 at 17:30 Enoxaparin Sodium (Lovenox) 40 mg DAILY SC Last administered on 07/10/17 08: 50; Admin Dose 40 MG; Start 07/08/17 at 09:00 Aspirin 81 mg 81 mg DAILY PO Last administered on 07/10/17 08:48; Admin Dose 81 MG; Start 07/08/17 at 09:00 Dextrose/Sodium Chloride (D5-1/2ns) 1,000 ml @ 75 mls/hr [id number] IV Last administered on 07/10/17 02:14; Admin Dose 75 MLS/HR; Start 07/07/17 at 21:30 Famotidine 20 mg 20 mg BID IV Last administered on 07/10/17 08:48; Admin Dose 20 MG; Start 07/09/17 at 09:00 Fentanyl (Sublimaze) 100 ml @ 2.5 mls/hr TITRATE IV Last administered on 07/09 15:06; Admin Dose 2.5 MLS/HR; Start 07/09/17 at 13:00 MEERA DAVIES Jul 10, 2017 11:52
--- NOTE | 2017-07-10 12:57 | CONS ---
Date/Time of Note Date/Time of Note DATE: 07/10/17 TIME: 12:48 Assessment/Plan Assessment/Plan Additional Assessment/Plan 1. Cardiac arrest with initial rhythm of ventricular fibrillation per report now post-op s/p C revealing 3 vessel [place] obstructive disease with occluded svg x 2 and patent GR to LAD - on med RX now. BETTER overall - responded to diuresis. 2. Positive troponin, status post cardiac arrest-downtrending - no intervention planned. BETTER now. 3. Abnormal ECG, status post cardiac arrest - con't supportive care. 4. Hypertension- well Rx now. 5. History of coronary artery disease, status post coronary bypass graft surgery- no intervention plnaned now. 6. Respiratory failure, status post intubation - on decreased - con't resp Rx - now better o2 sat 7. Leukocytosis- on anti-Bx, con't Med Rx - on antibx. 8. Possible diabetes mellitus, \ 9. CHF - EF 30%, acute on chronic, con't to diureses now. Consultation Date/Type/Reason Admit Date/Time Jul 07, 2017 at 16:46 Type of Consultation: Pulmonary/critical care Referring Provider: PRINCE HASSAN 24 HR Interval Summary Free Text/Dictation NO acute events - BP in good range now - con't diuresis - responded well to Lasix. Family at bed side, happy with care. ROS: No fever, no chills, no nausea, no vomiting, no diarrhea/constipation No recent weight changes No chest pain, no PND, no orthopnea No dizziness, blurred vision No thirst, no heat or cold intolerance (per nurse) Exam/Review of Systems Vital Signs Vitals Vital Signs Date Time Temp Pulse Resp B/P Pulse Ox O2 Delivery O2 Flow Rate FiO2 07/10/17 11:30 81 99/56 99 07/10/17 11:00 20 Mechanical Ventilator 07/10/17 08:00 99.0 07/10/17 05:00 60 Intake and Output 07/09/17 07/09/17 07/10/17 15:00 23:00 07:00 Intake Total 576.4 ml 947.2 ml 625.8 ml Output Total 404 ml 881 ml 0 ml Balance 172.4 ml 66.2 ml 625.8 ml Exam General: WN/WD/NAD, AOx 0 HEENT: Unicetric/atraumatic/EOMI (does not follow commands) NECK: JVD elevated, no thyromegaly, intubated Lymph: no lymphadenopathy HEART: regular with no S3, II/ systolic murmur at apex LUNGS: Coarse sounds ABD: soft, NT, ND, +BS : Intact Neuro: non focal SKIN: chronic changes EXT: trace edema Results Result Diagram: 07/10/17 0400 07/10/17 0400 Results 24 hrs Laboratory Tests Test 07/09/17 13:55 07/09/17 15:58 07/09/17 17:33 07/09/17 20:19 Bedside Glucose 112 106 98 106 Test 07/09/17 22:15 07/10/17 00:03 07/10/17 02:12 07/10/17 03:51 Bedside Glucose 130 123 117 119 Test 07/10/17 04:00 07/10/17 06:43 07/10/17 08:38 07/10/17 10:23 White Blood Count 5.5 # Red Blood Count 4.27 L Hemoglobin 13.0 L Hematocrit 39.2 L Mean Corpuscular Volume 91.8 Mean Corpuscular Hemoglobin 30.4 Mean Corpuscular Hemoglobin Concent 33.2 Red Cell Distribution Width 13.8 Platelet Count 114 #L Mean Platelet Volume 12.5 H Neutrophils % 85.1 H Lymphocytes % 9.8 L Monocytes % 3.6 Eosinophils % 0.2 Basophils % 0.2 Nucleated Red Blood Cells % 0.0 Neutrophils # 4.7 Lymphocytes # 0.5 L Monocytes # 0.2 L Eosinophils # 0.0 Basophils # 0.0 Nucleated Red Blood Cells # 0.0 Sodium Level 135 Potassium Level 4.2 Chloride Level 104 Carbon Dioxide Level 23 Anion Gap 12 Blood Urea Nitrogen 15 Creatinine 0.91 Glucose Level 119 # Calcium Level 7.5 L Phosphorus Level 3.5 Magnesium Level 1.7 Bedside Glucose 130 108 109 Medications Medications Current Medications Cefepime HCl (Maxipime 2gm/50 ml (Pmx)) 50 ml @ 100 mls/hr Q12 IVPB Last administered on 07/10/17t 08:48; Admin Dose 100 MLS/HR; Start 07/07/17 at 15:30 Acetaminophen (Tylenol Supp) 650 mg Q4H PRN [place] TEMP > 37C; Start 07/07/17 at 17 :00 Acetaminophen (Tylenol Liquid) 650 mg Q4H PRN PO TEMP > 37C; Start 07/07/17 at 17:00 Acetaminophen (Tylenol Supp) 500 mg Q6H [place] Last administered on 07/10/17 04: 59; Admin Dose 500 MG; Start 07/08/17 at 17:00 Acetaminophen (Tylenol Liquid) 500 mg Q6H PO Last administered on 07/10/17 11 :52; Admin Dose 500 MG; Start 07/08/17 at 17:00 Meperidine HCl (Demerol) 12.5 mg Q4H PRN IV POST OPERATIVE SHIVERING Last administered on 07/08/17 19:00; Admin Dose 12.5 MG; Start 07/07/17 at 17:00 Meperidine HCl (Demerol) 25 mg Q4H PRN IV POST OPERATIVE SHIVERING Last administered on 07/09/17 03:49; Admin Dose 25 MG; Start 07/07/17 at 17:00 Eye Lubricant (Akwa Oint) 1 applic Q6 BOTH EYES Last administered on 11:53; Admin Dose 1 APPLIC; Start 07/07/17 at 18:00 Eye Lubricant (Artificial Tears Oph) 2 drop Q6 BOTH EYES Last administered on 07/10/17 11:53; Admin Dose 2 DROP; Start 07/07/17 at 18:00 Acetaminophen (Tylenol Tab) 650 mg Q6H PRN PO PAIN LEVEL 1-3 OR FEVER; Start 07/07/17 at 17:30 Acetaminophen/ Hydrocodone Bitart ([place] (5/325)) 1 tab Q6H PRN PO MODERATE PAIN LEVEL 4-6; Start 07/07/17 at 17:30 Morphine Sulfate (morphine) 2 mg Q4H PRN IV SEVERE PAIN LEVEL 7-10 Last administered on 07/09/17 11:06; Admin Dose 2 MG; Start 07/07/17 at 17:30 Enoxaparin Sodium (Lovenox) 40 mg DAILY [place] Last administered on 07/10/17 08: 50; Admin Dose 40 MG; Start 07/08/17 at 09:00 Aspirin 81 mg 81 mg DAILY PO Last administered on 07/10/17 08:48; Admin Dose 81 MG; Start 07/08/17 at 09:00 Dextrose/Sodium Chloride (D5-1/2ns) 1,000 ml @ 75 mls/hr [id number] IV Last administered on 07/10/17 12:33; Admin Dose 75 MLS/HR; Start 07/07/17 at 21:30 Famotidine 20 mg 20 mg BID IV Last administered on 07/10/17 08:48; Admin Dose 20 MG; Start 07/09/17 at 09:00 Fentanyl (Sublimaze) 100 ml @ 2.5 mls/hr TITRATE IV Last administered on 07/09 15:06; Admin Dose 2.5 MLS/HR; Start 07/09/17 at 13:00 DENISSE WILLIAMSON MD Jul 10, 2017 12:57
--- NOTE | 2017-07-10 14:49 | RADRPT ---
Vent Rate: 60 bpm RR Interval: 0 msec NV Interval: 250 msec QRS Duration: 104 msec QT Interval: 600 msec QTC Interval: 600 msec P-R-T [place]: 25 - 40 - 77 degrees Sinus rhythm with 1st degree AV block Prolonged QT Abnormal ECG No previous tracing available for comparison Electronically Signed By: Sheldon Winters [phone]
--- NOTE | 2017-07-10 15:00 | RADRPT ---
Vent Rate: 105 bpm RR Interval: 0 msec NC Interval: 198 msec QRS Duration: 88 msec QT Interval: 370 msec QTC Interval: 489 msec P-R-T [place]: 44 - 58 - 68 degrees Sinus tachycardia Prolonged QT Nonspecific ST-T changes No previous tracing available for comparison Electronically Signed By: Sheldon Winters [phone]
--- NOTE | 2017-07-10 20:13 | PN ---
Date/Time of Note Date/Time of Note DATE: 07/10/17 TIME: 20:12 Assessment/Plan Lines/Catheters IV C[facility]ter Type ([facility] Saline Lock Assessment/Plan Chief Complaint/Hosp Course IMPRESSION: 1. Status post cardiac arrest with CPR. 2. Left-sided pneumothorax. resolved will monitor CXR . Discussed with the nursing staff. Problems: Subjective 24 Hr Interval Summary Constitutional: improved Pain Control: mild Exam/Review of Systems Vital Signs Vitals Vital Signs Date Time Temp Pulse Resp B/P Pulse Ox O2 Delivery O2 Flow Rate FiO2 07/10/17 19:05 86 10 100 40 07/10/17 18:00 109/63 Mechanical Ventilator 07/10/17 16:00 98.7 Intake and Output 07/09/17 07/09/17 07/10/17 15:00 23:00 07:00 Intake Total 576.4 ml 947.2 ml 625.8 ml Output Total 404 ml 881 ml 0 ml Balance 172.4 ml 66.2 ml 625.8 ml Exam ENMT: mucosa pink and moist, nl external ears & nose, nl lips & teeth, nl nasal mucosa & septum Neck: non-tender, supple Respiratory: clear to auscultation, normal air movement Cardiovascular: nl pulses, regular rate and rhythm Gastrointestinal: nl liver, spleen, non-tender, soft Results Result Diagram: 07/10/1739907/10/17399 GENEVA CALDERON MD Jul 10, 2017 20:13
--- NOTE | 2017-07-10 23:48 | RADRPT ---
PROCEDURE: XR Chest. CLINICAL INDICATION: Endotracheal tube advancement. TECHNIQUE: Portable AP semi erect view of the chest was obtained. COMPARISON: 07/10/2017 at 06:50 a.m. FINDINGS: The cardiomediastinal silhouette is mildly enlarged . Distal tip of the previously seen endotrachea l tube has been successfully advanced and now is in good radiographic position projecting 4 cm above the jim. The distal tip of the nasogastric tube is pointing inferiorly in the region of the sto mach in good position for usage. Right subclavian approach central venous access catheter is again noted the tip projecting at the right atrium. Left lower lobe infiltrate is unchanged. Right lung is grossly clear. There is no evidence of pneumothorax or pulmonary vascular congestion. No obvious pl eural effusion is seen sternotomy wires are again noted without evidence of acute osseous abnormali ty. Multiple monitoring wires overlie the chest limiting fine evaluation. RPTAT:HJJR IMPRESSION: 1. Successful interval advancement of the endotracheal tube the distal tip now projecting in good ra diographic position approximately 4 cm above the jim. 2. Nasogastric tube and right subclavian central venous access catheter remain in good radiographic positions. 3. Left lower lobe infiltrate again noted unable to exclude pneumonia. 4. Post thoracotomy changes with mild cardiac silhouette enlargement but no current radiographic ev idence of congestive heart failure. Physician Tiffanie Date Time Electronically viewed and signed by Physician Tiffanie on 07/10/2017 23:48 JR/
[2017-07-11] VITALS (36 sets, daily range): BP systolic 90–141; BP diastolic 54–93; PULSE 67–96; RESP 12–23
[2017-07-11] MEDS: FENTAnyl (DRIP) 1000 mcg/100mL 100 ML IV SCH (00:01)
[2017-07-11] MEDS: ACETAMINOPHEN 650MG/20.3ML CUP PO SCH ×3 (00:01→11:00)
[2017-07-11] MEDS: ARTIFICIAL TEARS 15 ML OPH BOTH EYES SCH ×4 (00:02→18:25)
[2017-07-11] MEDS: OCULAR LUBRICANT 3.5 GM OPH OINT BOTH EYES SCH ×4 (00:02→18:25)
[2017-07-11] MEDS: DEXTROSE 5%-0.45% NACL 1,000 ML IV SCH ×3 (04:30→22:51)
[2017-07-11] MEDS: PROPOFOL 100 ML IV SCH ×2 (04:31)
[2017-07-11 04:43] LABS: ABNORMAL IP MESSAGE 1; BASOPHILS % 0.2 % (0.0-2.0); EOSINOPHILS # 0.1 10^3/ul (0.0-0.5); EOSINOPHILS % 2.1 % (0.0-7.0); HEMATOCRIT 33.5 % (42.0-52.0); HEMOGLOBIN 11.2 g/dl (14.0-18.0); LYMPHOCYTES % 16.4 % (15.0-51.0); MEAN CORPUSCULAR HEMOGLOBIN 30.8 pg (29.0-33.0); MEAN CORPUSCULAR HGB CONC 33.4 g/dl (32.0-37.0); MEAN PLATELET VOLUME 11.7 fl (7.4-10.4); MONOCYTE # 0.3 10^3/ul (0.3-0.9); MONOCYTES % 5.5 % (0.0-11.0); NEUTROPHIL # 4.6 10^3/ul (1.6-7.5); NEUTROPHILS % 74.8 % (39.0-77.0); PLATELET COUNT 102 10^3/UL (140-415); POSITIVE DIFF @See below; RED BLOOD COUNT 3.64 10^6/ul (4.70-6.10); RED CELL DISTRIBUTION WIDTH 14.2 % (11.5-14.5); WHITE BLOOD COUNT 6.2 10^3/ul (4.8-10.8)
[2017-07-11] MEDS: ACETAMINOPHEN 650 MG SUPP PR SCH ×2 (05:00→11:00)
[2017-07-11 05:09] LABS: CALCIUM 8.1 mg/dl (8.4-10.2); CREATININE 0.78 mg/dl (0.61-1.24); POTASSIUM 3.8 mmol/L (3.5-5.1)
--- NOTE | 2017-07-11 08:18 | CONS ---
Date/Time of Note Date/Time of Note DATE: 07/11/17 TIME: 08:15 Assessment/Plan Assessment/Plan Additional Assessment/Plan Ventilator setting; AC of 18, tidal volume 500, PEEP of 5, 40% FiO2. Patient currently on fentanyl 20 mics per hour, propofol 35 mics per kilogram per minute. Assessment and recommendations; 1. Patient admitted with cardiac arrest status post hypothermia protocol. 2. Markedly improved hypoxemia. 3. Possibly some element of aspiration pneumonia, radiologically much improved. 4. Thrombocytopenia without any overt bleeding. Hold sedation. Once the patient is off sedation he will be evaluated for possible weaning from ventilator. Meanwhile continue current supportive care. Obtain follow-up chest x-ray in 24 hours. Consultation Date/Type/Reason Admit Date/Time Jul 07, 2017 at 16:46 Type of Consultation: Pulmonary/critical care Referring Provider: PRINCE HASSAN 24 HR Interval Summary Free Text/Dictation Patient's condition remains critical. Still requiring full invasive mechanical ventilation. Patient was given a sedation vacation overnight and according to the treating nurse the patient did follow commands and was mentally appropriate. Patient has remained hemodynamically stable. No untoward events reported. General exam; elderly male, orally intubated, sedated, currently in no distress. Exam/Review of Systems Vital Signs Vitals Vital Signs Date Time Temp Pulse Resp B/P Pulse Ox O2 Delivery O2 Flow Rate FiO2 07/11/17 06:00 70 110/63 100 07/11/17 05:05 19 40 07/11/17 05:00 Mechanical Ventilator 07/11/17 04:00 99.0 Intake and Output 07/10/17 07/10/17 07/11/17 15:00 23:00 07:00 Intake Total 946.9 ml 1006.7 ml 798.35 ml Output Total 1747 ml 834 ml 608 ml Balance -800.1 ml 172.7 ml 190.35 ml Exam HEENT exam; supple neck, no JVD. No lymphadenopathy. Midline trachea. No thyromegaly. Orally intubated. Patient does have multiple carious teeth. Pupils are small bilaterally. Chest exam; diminished but clear breath sounds. S1-S2 audible, no murmurs. Regular rhythm. Abdomen exam; soft, no organomegaly. Bowel sounds audible. Extremity exam; no edema. Pulses 1+ bilaterally. MOVERS exam; patient is sedated. Results Result Diagram: 07/11/17 0415 07/11/17 0415 Results 24 hrs Laboratory Tests Test 07/10/17 08:38 07/10/17 10:23 07/11/17 04:15 Bedside Glucose 108 109 White Blood Count 6.2 Red Blood Count 3.64 L Hemoglobin 11.2 L Hematocrit 33.5 L Mean Corpuscular Volume 92.0 Mean Corpuscular Hemoglobin 30.8 Mean Corpuscular Hemoglobin Concent 33.4 Red Cell Distribution Width 14.2 Platelet Count 102 L Mean Platelet Volume 11.7 H Neutrophils % 74.8 Lymphocytes % 16.4 Monocytes % 5.5 Eosinophils % 2.1 Basophils % 0.2 Nucleated Red Blood Cells % 0.0 Neutrophils # 4.6 Lymphocytes # 1.0 Monocytes # 0.3 Eosinophils # 0.1 Basophils # 0.0 Nucleated Red Blood Cells # 0.0 Sodium Level 141 Potassium Level 3.8 Chloride Level 111 H Carbon Dioxide Level 28 Anion Gap 6 L Blood Urea Nitrogen 15 Creatinine 0.78 Glucose Level 99 Calcium Level 8.1 L Medications Medications Current Medications Cefepime HCl (Maxipime 2gm/50 ml (Pmx)) 50 ml @ 100 mls/hr Q12 IVPB Last administered on 07/10/17 20:12; Admin Dose 100 MLS/HR; Start 07/07/17 at 15:30 Acetaminophen (Tylenol Supp) 650 mg Q4H PRN [place] TEMP > 37C; Start 07/07/17 at 17 :00 Acetaminophen (Tylenol Liquid) 650 mg Q4H PRN PO TEMP > 37C; Start 07/07/17 at 17:00 Acetaminophen (Tylenol Supp) 500 mg Q6H [place] Last administered on 07/10/17 04: 59; Admin Dose 500 MG; Start 07/08/17 at 17:00 Acetaminophen (Tylenol Liquid) 500 mg Q6H PO Last administered on 07/11/17 05 :32; Admin Dose 500 MG; Start 07/08/17 at 17:00 Meperidine HCl (Demerol) 12.5 mg Q4H PRN IV POST OPERATIVE SHIVERING Last administered on 07/08/17 19:00; Admin Dose 12.5 MG; Start 07/07/17 at 17:00 Meperidine HCl (Demerol) 25 mg Q4H PRN IV POST OPERATIVE SHIVERING Last administered on 07/09/17 03:49; Admin Dose 25 MG; Start 07/07/17 at 17:00 Eye Lubricant (Akwa Oint) 1 applic Q6 BOTH EYES Last administered on 05:33; Admin Dose 1 APPLIC; Start 07/07/17 at 18:00 Eye Lubricant (Artificial Tears Oph) 2 drop Q6 BOTH EYES Last administered on 07/11/17 05:32; Admin Dose 2 DROP; Start 07/07/17 at 18:00 Acetaminophen (Tylenol Tab) 650 mg Q6H PRN PO PAIN LEVEL 1-3 OR FEVER; Start 07/07/17 at 17:30 Acetaminophen/ Hydrocodone Bitart ([place] (5/325)) 1 tab Q6H PRN PO MODERATE PAIN LEVEL 4-6; Start 07/07/17 at 17:30 Morphine Sulfate (morphine) 2 mg Q4H PRN IV SEVERE PAIN LEVEL 7-10 Last administered on 07/09/17 11:06; Admin Dose 2 MG; Start 07/07/17 at 17:30 Enoxaparin Sodium (Lovenox) 40 mg DAILY [place] Last administered on 07/10/17 08: 50; Admin Dose 40 MG; Start 07/08/17 at 09:00 Aspirin 81 mg 81 mg DAILY PO Last administered on 07/10/17 08:48; Admin Dose 81 MG; Start 07/08/17 at 09:00 Dextrose/Sodium Chloride (D5-1/2ns) 1,000 ml @ 75 mls/hr [id number] IV Last administered on 07/11/17 04:30; Admin Dose 75 MLS/HR; Start 07/07/17 at 21:30 Famotidine 20 mg 20 mg BID IV Last administered on 07/10/17 20:12; Admin Dose 20 MG; Start 07/09/17 at 09:00 Fentanyl (Sublimaze) 100 ml @ 2.5 mls/hr TITRATE IV Last administered on 07/11 00:01; Admin Dose 3.5 MLS/HR; Start 07/09/17 at 13:00 KANU GRESHAM Jul 11, 2017 08:18
[2017-07-11] MEDS: FAMOTIDINE 20 MG INJ IV SCH ×2 (08:28→20:05)
[2017-07-11] MEDS: CEFEPIME 2GM/50 ML (PMX) 50 ML IVPB SCH (08:28)
[2017-07-11] MEDS: ASPIRIN (EC) 81 MG TAB PO SCH (08:28)
[2017-07-11] MEDS: ENOXAPARIN 40 MG/0.4 ML SYG SC SCH (08:29)
[2017-07-11 10:58] LABS: AADO2 Arterial 126.8 mmHg (7.0-24.0); Allen Test ACCEPTAB; Arterial Base Excess 1.4 mmol/L (-3.0-3); Arterial COHb 0.1 % (0.0-3.0); Arterial Fraction of Oxyhgb 97.6 % (93.0-99.0); Arterial HCO3 26.8 mmol/L (22.0-26.0); Arterial MetHb 0.1 % (0.0-1.5); Arterial Total Hemglobin 13.5 g/dl (12.0-18.0); Blood Gas PS 10; MODE VENT - CPAP
--- NOTE | 2017-07-11 13:36 | CONS ---
Date/Time of Note Date/Time of Note DATE: 07/11/17 TIME: 13:34 Assessment/Plan Assessment/Plan Additional Assessment/Plan 1. Cardiac arrest with initial rhythm of ventricular fibrillation per report now post-op s/p C revealing 3 vessel [place] obstructive disease with occluded svg x 2 and patent GR to LAD - on med RX now. BETTER overall - responded to diuresis. Anticipating [place] transfer soon. 2. Positive troponin, status post cardiac arrest-downtrending - no intervention planned. BETTER now. NO CP now. 3. Abnormal ECG, status post cardiac arrest - con't supportive care. 4. Hypertension- well Rx now. 5. History of coronary artery disease, status post coronary bypass graft surgery- no intervention plnaned now. 6. Respiratory failure, status post intubation - on decreased - con't resp Rx - now better o2 sat - EXTUBATED NOW. 7. Leukocytosis- on anti-Bx, con't Med Rx - on antibx. 8. Possible diabetes mellitus, \ 9. CHF - EF 30%, acute on chronic, con't to diureses now. Will likely need ICD before d/c. Consultation Date/Type/Reason Admit Date/Time Jul 07, 2017 at 16:46 Type of Consultation: Pulmonary/critical care Referring Provider: PRINCE HASSAN 24 HR Interval Summary Free Text/Dictation Extubated, much better now - anticipate [place] transfer soon. ROS: No fever, no chills, no nausea, no vomiting, no diarrhea/constipation No recent weight changes No chest pain, no PND, no orthopnea +SOB No dizziness, blurred vision No thirst, no heat or cold intolerance Exam/Review of Systems Vital Signs Vitals Vital Signs Date Time Temp Pulse Resp B/P Pulse Ox O2 Delivery O2 Flow Rate FiO2 07/11/17 12:00 98.4 75 131/74 99 07/11/17 08:00 40 07/11/17 07:00 18 Mechanical Ventilator Intake and Output 07/10/17 07/10/17 07/11/17 15:00 23:00 07:00 Intake Total 946.9 ml 1006.7 ml 798.35 ml Output Total 1747 ml 834 ml 650 ml Balance -800.1 ml 172.7 ml 148.35 ml Exam General: WN/WD/NAD, AOx 1 HEENT: Unicetric/atraumatic/EOMI (follows some commands) NECK: JVD elevated, no thyromegaly, NGT Lymph: no lymphadenopathy HEART: regular with no S3, II/ systolic murmur at apex LUNGS: Coarse sounds ABD: soft, NT, ND, +BS : Intact Neuro: non focal SKIN: chronic changes EXT: trace edema Results Result Diagram: 07/11/17 0415 07/11/17 0415 Results 24 hrs Laboratory Tests Test 07/11/17 04:15 07/11/17 11:15 White Blood Count 6.2 Red Blood Count 3.64 L Hemoglobin 11.2 L Hematocrit 33.5 L Mean Corpuscular Volume 92.0 Mean Corpuscular Hemoglobin 30.8 Mean Corpuscular Hemoglobin Concent 33.4 Red Cell Distribution Width 14.2 Platelet Count 102 L Mean Platelet Volume 11.7 H Neutrophils % 74.8 Lymphocytes % 16.4 Monocytes % 5.5 Eosinophils % 2.1 Basophils % 0.2 Nucleated Red Blood Cells % 0.0 Neutrophils # 4.6 Lymphocytes # 1.0 Monocytes # 0.3 Eosinophils # 0.1 Basophils # 0.0 Nucleated Red Blood Cells # 0.0 Sodium Level 141 Potassium Level 3.8 Chloride Level 111 H Carbon Dioxide Level 28 Anion Gap 6 L Blood Urea Nitrogen 15 Creatinine 0.78 Glucose Level 99 Calcium Level 8.1 L Blood Gas Specimen Source Blood arterial Arterial Blood Date Drawn 07/11/2017 10:40:56 AM Arterial Blood pH (Temp corrected) 7.392 Arterial Blood pCO2 (Temp correct) 45.0 Arterial Blood pO2 (Temp corrected) 106.7 H Arterial Blood HCO3 26.8 H Arterial Blood Base Excess 1.4 Arterial Blood Oxygen Saturation 97.8 Ilan Test ACCEPTAB Arterial Blood Gas Puncture Site Right Radial Arterial Blood Carboxyhemoglobin 0.1 Arterial Blood Methemoglobin 0.1 Blood Gas A-a O2 Differential 126.8 H Oxyhemoglobin Percent 97.6 Total Hemoglobin 13.5 Blood Gas Temperature 37.0 Blood Gas Actual Respiration Rate 12 Blood Gas Modality VENT - CPAP FiO2 40.0 Blood Gas Tidal Volume 621.0 Blood Gas Low PEEP Setting 5.0 Blood Gas Pressure Support 10 Blood Gas Notified Whom WILLIAM AGUIAR Blood Gas Notified Time 07/11/2017 10:57:57 AM Medications Medications Current Medications Cefepime HCl (Maxipime 2gm/50 ml (Pmx)) 50 ml @ 100 mls/hr Q12 IVPB Last administered on 07/11/17 08:28; Admin Dose 100 MLS/HR; Start 07/07/17 at 15:30 Acetaminophen (Tylenol Supp) 650 mg Q4H PRN [place] TEMP > 37C; Start 07/07/17 at 17 :00 Acetaminophen (Tylenol Liquid) 650 mg Q4H PRN PO TEMP > 37C; Start 07/07/17 at 17:00 Acetaminophen (Tylenol Supp) 500 mg Q6H [place] Last administered on 07/10/17 04: 59; Admin Dose 500 MG; Start 07/08/17 at 17:00 Acetaminophen (Tylenol Liquid) 500 mg Q6H PO Last administered on 07/11/17 05 :32; Admin Dose 500 MG; Start 07/08/17 at 17:00 Meperidine HCl (Demerol) 12.5 mg Q4H PRN IV POST OPERATIVE SHIVERING Last administered on 07/08/17 19:00; Admin Dose 12.5 MG; Start 07/07/17 at 17:00 Meperidine HCl (Demerol) 25 mg Q4H PRN IV POST OPERATIVE SHIVERING Last administered on 07/09/17 03:49; Admin Dose 25 MG; Start 07/07/17 at 17:00 Eye Lubricant (Akwa Oint) 1 applic Q6 BOTH EYES Last administered on 11:54; Admin Dose 1 APPLIC; Start 07/07/17 at 18:00 Eye Lubricant (Artificial Tears Oph) 2 drop Q6 BOTH EYES Last administered on 07/11/17 11:53; Admin Dose 2 DROP; Start 07/07/17 at 18:00 Acetaminophen (Tylenol Tab) 650 mg Q6H PRN PO PAIN LEVEL 1-3 OR FEVER; Start 07/07/17 at 17:30 Acetaminophen/ Hydrocodone Bitart ([place] (5/325)) 1 tab Q6H PRN PO MODERATE PAIN LEVEL 4-6; Start 07/07/17 at 17:30 Morphine Sulfate (morphine) 2 mg Q4H PRN IV SEVERE PAIN LEVEL 7-10 Last administered on 07/09/17 11:06; Admin Dose 2 MG; Start 07/07/17 at 17:30 Enoxaparin Sodium (Lovenox) 40 mg DAILY [place] Last administered on 07/11/17 08: 29; Admin Dose 40 MG; Start 07/08/17 at 09:00 Aspirin 81 mg 81 mg DAILY PO Last administered on 07/11/17 08:28; Admin Dose 81 MG; Start 07/08/17 at 09:00 Dextrose/Sodium Chloride (D5-1/2ns) 1,000 ml @ 75 mls/hr [id number] IV Last administered on 07/11/17 04:30; Admin Dose 75 MLS/HR; Start 07/07/17 at 21:30 Famotidine 20 mg 20 mg BID IV Last administered on 07/11/17 08:28; Admin Dose 20 MG; Start 07/09/17 at 09:00 Fentanyl (Sublimaze) 100 ml @ 2.5 mls/hr TITRATE IV Last administered on 07/11 00:01; Admin Dose 3.5 MLS/HR; Start 07/09/17 at 13:00 DENISSE WILLIAMSON MD Jul 11, 2017 13:36
--- NOTE | 2017-07-11 15:16 | RADRPT ---
PROCEDURE: CT Brain without contrast. CLINICAL INDICATION: Headache. TECHNIQUE: A CT of the brain without contrast was performed utilizing axial sections from the skul l base through the vertex. The patient was scanned without intravenous contrast enhancement. [place] l and coronal reformatted images were obtained using the data from the axial images. Total exam DLP is 720.23 mGy-cm. CTDIvol is 44.26 mGy. One or more of the following dose reduction techniques we re used: Automated exposure control, adjustment of the mA and/or kV according to patient size, use o f iterative reconstruction technique. DICOM images are available. COMPARISON: None available FINDINGS: There is normal robertson-white matter differentiation. There is mild enlargement of the ventricles and subarachnoid spaces consistent with atrophy. There is no intracranial hemorrhage or space-occupying lesion. There is no skull fracture or lytic lesion. A nasogastric tube is noted in the right nostril. IMPRESSION: 1. Mild atrophy. 2. Nasogastric tube in the right nostril. 3. Otherwise normal noncontrast CT scan of the brain. RPTAT: QQ .Juan Luis Nina MD, MD Date Time Electronically viewed and signed by .Juan Luis Nina MD, MD on 07/11/2017 15:15 .R/
--- NOTE | 2017-07-11 17:03 | PN ---
Date/Time of Note Date/Time of Note DATE: 07/11/17 TIME: 16:59 Assessment/Plan VTE Prophylaxis VTE Prophylaxis Intervention: LMWH Lines/Catheters IV [facility]from [facility] Saline Lock Assessment/Plan Chief Complaint/Hosp Course 1. Cardiac arrest likely secondary to CHF Cardiology consultation appreciated, heart cath done which shows significant coronary disease with occluded [place] vessels as well as previous stents, only intact vessel is a GR Findings are chronic and troponins were only mildly elevated hence etiology of arrest is unlikely to be an acute ischemic event and likely due to heart failure Echo shows an EF 30% with stage I dissect heart failure, defer decision for AICD to cardiology Status post hypothermia protocol ICU monitoring Patient neurological function is intact and patient is following commands Status post antibiotics for possible aspiration pneumonia 2. Acute respiratory failure secondary to above-extubated today 3. Elevated LFTs secondary to cardiac arrest Monitor 4. Pneumothorax Appears to have resolved Pulmonology following 5. Leukocytosis-reactive Resolved Prophylaxis: Lovenox Discharge planning: Plan to transfer to [facility] likely tomorrow Problems: Subjective 24 Hr Interval Summary Subjective hx not possible: pt non-verbal Exam/Review of Systems Vital Signs Vitals Vital Signs Date Time Temp Pulse Resp B/P Pulse Ox O2 Delivery O2 Flow Rate FiO2 07/11/17 16:00 76 07/11/17 12:05 4.0 07/11/17 12:00 98.4 131/74 99 07/11/17 11:00 16 40 07/11/17 07:00 Mechanical Ventilator Intake and Output 07/10/17 07/10/17 07/11/17 15:00 23:00 07:00 Intake Total 946.9 ml 1006.7 ml 886.75 ml Output Total 1747 ml 834 ml 650 ml Balance -800.1 ml 172.7 ml 236.75 ml Exam Head: normocephalic Respiratory: clear to auscultation Cardiovascular: regular rate and rhythm Gastrointestinal: soft, No distended Musculoskeletal: nl extremities to inspection Results Result Diagram: 07/11/17 0415 07/11/17 0415 Results 24 hrs Laboratory Tests Test 07/11/17 04:15 07/11/17 11:15 White Blood Count 6.2 Red Blood Count 3.64 L Hemoglobin 11.2 L Hematocrit 33.5 L Mean Corpuscular Volume 92.0 Mean Corpuscular Hemoglobin 30.8 Mean Corpuscular Hemoglobin Concent 33.4 Red Cell Distribution Width 14.2 Platelet Count 102 L Mean Platelet Volume 11.7 H Neutrophils % 74.8 Lymphocytes % 16.4 Monocytes % 5.5 Eosinophils % 2.1 Basophils % 0.2 Nucleated Red Blood Cells % 0.0 Neutrophils # 4.6 Lymphocytes # 1.0 Monocytes # 0.3 Eosinophils # 0.1 Basophils # 0.0 Nucleated Red Blood Cells # 0.0 Sodium Level 141 Potassium Level 3.8 Chloride Level 111 H Carbon Dioxide Level 28 Anion Gap 6 L Blood Urea Nitrogen 15 Creatinine 0.78 Glucose Level 99 Calcium Level 8.1 L Blood Gas Specimen Source Blood arterial Arterial Blood Date Drawn 07/11/2017 10:40:56 AM Arterial Blood pH (Temp corrected) 7.392 Arterial Blood pCO2 (Temp correct) 45.0 Arterial Blood pO2 (Temp corrected) 106.7 H Arterial Blood HCO3 26.8 H Arterial Blood Base Excess 1.4 Arterial Blood Oxygen Saturation 97.8 Ilan Test ACCEPTAB Arterial Blood Gas Puncture Site Right Radial Arterial Blood Carboxyhemoglobin 0.1 Arterial Blood Methemoglobin 0.1 Blood Gas A-a O2 Differential 126.8 H Oxyhemoglobin Percent 97.6 Total Hemoglobin 13.5 Blood Gas Temperature 37.0 Blood Gas Actual Respiration Rate 12 Blood Gas Modality VENT - CPAP FiO2 40.0 Blood Gas Tidal Volume 621.0 Blood Gas Low PEEP Setting 5.0 Blood Gas Pressure Support 10 Blood Gas Notified Whom WILLIAM AGUIAR Blood Gas Notified Time 07/11/2017 10:57:57 AM Medications Medications Current Medications Cefepime HCl (Maxipime 2gm/50 ml (Pmx)) 50 ml @ 100 mls/hr Q12 IVPB Last administered on 07/11/17 08:28; Admin Dose 100 MLS/HR; Start 07/07/17 at 15:30 Acetaminophen (Tylenol Supp) 650 mg Q4H PRN [place] TEMP > 37C; Start 07/07/17 at 17 :00 Acetaminophen (Tylenol Liquid) 650 mg Q4H PRN PO TEMP > 37C; Start 07/07/17 at 17:00 Acetaminophen (Tylenol Supp) 500 mg Q6H [place] Last administered on 07/10/17 04: 59; Admin Dose 500 MG; Start 07/08/17 at 17:00 Acetaminophen (Tylenol Liquid) 500 mg Q6H PO Last administered on 07/11/17 05 :32; Admin Dose 500 MG; Start 07/08/17 at 17:00 Meperidine HCl (Demerol) 12.5 mg Q4H PRN IV POST OPERATIVE SHIVERING Last administered on 07/08/17 19:00; Admin Dose 12.5 MG; Start 07/07/17 at 17:00 Meperidine HCl (Demerol) 25 mg Q4H PRN IV POST OPERATIVE SHIVERING Last administered on 07/09/17 03:49; Admin Dose 25 MG; Start 07/07/17 at 17:00 Eye Lubricant ([place] Oint) 1 applic Q6 BOTH EYES Last administered on 11:54; Admin Dose 1 APPLIC; Start 07/07/17 at 18:00 Eye Lubricant (Artificial Tears Oph) 2 drop Q6 BOTH EYES Last administered on 07/11/17 11:53; Admin Dose 2 DROP; Start 07/07/17 at 18:00 Acetaminophen (Tylenol Tab) 650 mg Q6H PRN PO PAIN LEVEL 1-3 OR FEVER; Start 07/07/17 at 17:30 Acetaminophen/ Hydrocodone Bitart ([place] (5/325)) 1 tab Q6H PRN PO MODERATE PAIN LEVEL 4-6; Start 07/07/17 at 17:30 Morphine Sulfate (morphine) 2 mg Q4H PRN IV SEVERE PAIN LEVEL 7-10 Last administered on 07/09/17 11:06; Admin Dose 2 MG; Start 07/07/17 at 17:30 Enoxaparin Sodium (Lovenox) 40 mg DAILY [place] Last administered on 07/11/17 08: 29; Admin Dose 40 MG; Start 07/08/17 at 09:00 Aspirin 81 mg 81 mg DAILY PO Last administered on 07/11/17 08:28; Admin Dose 81 MG; Start 07/08/17 at 09:00 Dextrose/Sodium Chloride (D5-1/2ns) 1,000 ml @ 75 mls/hr [id number] IV Last administered on 07/11/17 04:30; Admin Dose 75 MLS/HR; Start 07/07/17 at 21:30 Famotidine 20 mg 20 mg BID IV Last administered on 07/11/17 08:28; Admin Dose 20 MG; Start 07/09/17 at 09:00 Fentanyl (Sublimaze) 100 ml @ 2.5 mls/hr TITRATE IV Last administered on 07/11 00:01; Admin Dose 3.5 MLS/HR; Start 07/09/17 at 13:00 MEERA DAVIES Jul 11, 2017 17:03
--- NOTE | 2017-07-11 18:36 | PN ---
Date/Time of Note Date/Time of Note DATE: 07/11/17 TIME: 18:36 Assessment/Plan Lines/Catheters IV [facility] (from [facility]): Saline Lock Assessment/Plan Chief Complaint/Hosp Course IMPRESSION: 1. Status post cardiac arrest with CPR. 2. Left-sided pneumothorax. resolved will monitor CXR . Discussed with the nursing staff. Problems: Subjective 24 Hr Interval Summary Constitutional: improved Pain Control: mild Exam/Review of Systems Vital Signs Vitals Vital Signs Date Time Temp Pulse Resp B/P Pulse Ox O2 Delivery O2 Flow Rate FiO2 07/11/17 18:00 89 125/83 99 07/11/17 16:00 98.5 07/11/17 12:05 4.0 07/11/17 11:00 16 40 07/11/17 07:00 Mechanical Ventilator Intake and Output 07/10/17 07/10/17 07/11/17 15:00 23:00 07:00 Intake Total 946.9 ml 1006.7 ml 886.75 ml Output Total 1747 ml 834 ml 650 ml Balance -800.1 ml 172.7 ml 236.75 ml Exam ENMT: mucosa pink and moist, nl external ears & nose, nl lips & teeth, nl nasal mucosa & septum Neck: non-tender, supple Respiratory: clear to auscultation, normal air movement Cardiovascular: nl pulses, regular rate and rhythm Results Result Diagram: 07/11/17 0415 07/11/17 0415 GENEVA CALDERON MD Jul 11, 2017 18:36
[2017-07-12] VITALS (23 sets, daily range): BP systolic 114–147; BP diastolic 68–94; PULSE 73–97; RESP 13–22
[2017-07-12 05:35] LABS: BASOPHILS % 0.2 % (0.0-2.0); EOSINOPHILS # 0.2 10^3/ul (0.0-0.5); EOSINOPHILS % 1.8 % (0.0-7.0); HEMATOCRIT 35.1 % (42.0-52.0); HEMOGLOBIN 11.7 g/dl (14.0-18.0); LYMPHOCYTES # 0.8 10^3/ul (0.8-2.9); LYMPHOCYTES % 9.3 % (15.0-51.0); MEAN CORPUSCULAR HEMOGLOBIN 30.7 pg (29.0-33.0); MEAN CORPUSCULAR HGB CONC 33.3 g/dl (32.0-37.0); MEAN CORPUSCULAR VOLUME 92.1 fl (82.0-101.0); MEAN PLATELET VOLUME 11.6 fl (7.4-10.4); MONOCYTE # 0.6 10^3/ul (0.3-0.9); MONOCYTES % 7.4 % (0.0-11.0); NEUTROPHILS % 80.4 % (39.0-77.0); POSITIVE DIFF @See below; RED BLOOD COUNT 3.81 10^6/ul (4.70-6.10); RED CELL DISTRIBUTION WIDTH 13.7 % (11.5-14.5); WHITE BLOOD COUNT 8.7 10^3/ul (4.8-10.8)
[2017-07-12 05:53] LABS: CALCIUM 7.9 mg/dl (8.4-10.2); CREATININE 0.73 mg/dl (0.61-1.24); POTASSIUM 3.4 mmol/L (3.5-5.1)
[2017-07-12] MEDS: OCULAR LUBRICANT 3.5 GM OPH OINT BOTH EYES SCH ×2 (06:00)
[2017-07-12] MEDS: ARTIFICIAL TEARS 15 ML OPH BOTH EYES SCH ×2 (06:00)
[2017-07-12 06:50] LABS: PLATELET COUNT 128 10^3/UL (140-415)
--- NOTE | 2017-07-12 07:48 | RADRPT ---
PROCEDURE: XR Chest. CLINICAL INDICATION: Respiratory failure TECHNIQUE: Single frontal view of the chest. COMPARISON: 07/10/2017 and 07/09/2017 FINDINGS: Support lines and tubes: Interval extubation.. Enteric tube tip passes below the diaphragm and belo w the field of view. Right subclavian central line with the tip over the right atrium. Right PICC t ip over the cavoatrial junction. Cardiac/vascular structures: Normal cardiomediastinal silhouette. Aortic calcifications. Pulmonary: Bilateral perihilar and left basilar airspace opacities. No pleural effusion. No evidenc e of pneumothorax. Osseous structures: Sternotomy wires. Soft tissues: Normal IMPRESSION: 1. Interval extubation. Stable position of enteric tube and right subclavian catheter. 2. Bilateral perihilar and left basilar airspace opacities representing pulmonary edema or infection . RPTAT:AAJJ Physician Satish Date Time Electronically viewed and signed by Jennifer Roper Physician on 07/12/2017 07:48 /
[2017-07-12] MEDS: FAMOTIDINE 20 MG INJ IV SCH (09:56)
[2017-07-12] MEDS: ASPIRIN (EC) 81 MG TAB PO SCH (09:57)
[2017-07-12] MEDS: ENOXAPARIN 40 MG/0.4 ML SYG SC SCH (10:10)
--- NOTE | 2017-07-12 10:42 | CONS ---
Date/Time of Note Date/Time of Note DATE: 07/12/17 TIME: 10:37 Assessment/Plan Assessment/Plan Chief Complaint/Hosp Course IMPRESSION: 1. Cardiac arrest with initial rhythm of ventricular fibrillation per report now post-op s/p LHC revealing 3 vessel [place] obstructive disease with occluded svg x 2 and patent GR to LAD 2. Positive troponin, status post cardiac arrest-downtrending 3. Abnormal ECG, status post cardiac arrest. 4. Hypertension. 5. History of coronary artery disease, status post coronary bypass graft surgery. 6. Respiratory failure, status post intubation. 7. Leukocytosis. 8. Possible diabetes mellitus. 9. Encephalopathy- improving slowly Recc: -Tele -serial ecg's -Continue asa -Follow MS closely -Follow Blood pressure closely Problems: Consultation Date/Type/Reason Admit Date/Time Jul 07, 2017 at 16:46 Initial Consult Date 07/07/2017 Type of Consultation: cardioloogy Reason for Consultation cardiac arrest Referring Provider: PRINCE HASSAN Exam/Review of Systems Vital Signs Vitals Vital Signs Date Time Temp Pulse Resp B/P Pulse Ox O2 Delivery O2 Flow Rate FiO2 07/12/17 09:00 82 18 140/79 96 Nasal Cannula 4.0 07/12/17 08:00 98.1 07/11/17 11:00 40 Intake and Output 07/11/17 07/11/17 07/12/17 15:00 23:00 07:00 Intake Total 170.1 ml 925 ml 600 ml Output Total 478 ml 511 ml 354 ml Balance -307.9 ml 414 ml 246 ml Exam Review of Systems: CONSTITUTIONAL: No fevers, chills. PULMONARY: No sob CARDIOVASCULAR: No chest pain/palpitations GASTROINTESTINAL: No nausea/vomiting. GENITOURINARY: No hematuria/dysuria. MUSCULOSKELETAL: No myagias/arthalgias. PSYCHIATRIC: The patient denies depression. NEUROLOGIC: No weakness Constitutional: alert Psych: no complaints Head: normocephalic ENMT: mucosa pink and moist Neck: jvd, supple Respiratory: diminished breath sounds Cardiovascular: regular rate and rhythm Gastrointestinal: soft Musculoskeletal: muscle tone Extremities: edema Neurological: other (No focal deficits) Results Result Diagram: 07/12/17 0400 07/12/17 0400 Results 24 hrs Laboratory Tests Test 07/11/17 11:15 07/12/17 04:00 Blood Gas Specimen Source Blood arterial Arterial Blood Date Drawn 07/11/2017 10:40:56 AM Arterial Blood pH (Temp corrected) 7.392 Arterial Blood pCO2 (Temp correct) 45.0 Arterial Blood pO2 (Temp corrected) 106.7 H Arterial Blood HCO3 26.8 H Arterial Blood Base Excess 1.4 Arterial Blood Oxygen Saturation 97.8 Ilan Test ACCEPTAB Arterial Blood Gas Puncture Site Right Radial Arterial Blood Carboxyhemoglobin 0.1 Arterial Blood Methemoglobin 0.1 Blood Gas A-a O2 Differential 126.8 H Oxyhemoglobin Percent 97.6 Total Hemoglobin 13.5 Blood Gas Temperature 37.0 Blood Gas Actual Respiration Rate 12 Blood Gas Modality VENT - CPAP FiO2 40.0 Blood Gas Tidal Volume 621.0 Blood Gas Low PEEP Setting 5.0 Blood Gas Pressure Support 10 Blood Gas Notified Micah AGUIAR RCP Blood Gas Notified Time 07/11/2017 10:57:57 AM White Blood Count 8.7 # Red Blood Count 3.81 L Hemoglobin 11.7 L Hematocrit 35.1 L Mean Corpuscular Volume 92.1 Mean Corpuscular Hemoglobin 30.7 Mean Corpuscular Hemoglobin Concent 33.3 Red Cell Distribution Width 13.7 Platelet Count 128 #L Mean Platelet Volume 11.6 H Neutrophils % 80.4 H Lymphocytes % 9.3 L Monocytes % 7.4 Eosinophils % 1.8 Basophils % 0.2 Nucleated Red Blood Cells % 0.0 Neutrophils # 7.0 Lymphocytes # 0.8 Monocytes # 0.6 Eosinophils # 0.2 Basophils # 0.0 Nucleated Red Blood Cells # 0.0 Sodium Level 144 Potassium Level 3.4 L Chloride Level 110 Carbon Dioxide Level 29 Anion Gap 8 Blood Urea Nitrogen 19 Creatinine 0.73 Glucose Level 101 Calcium Level 7.9 L Magnesium Level 2.0 Medications Medications Current Medications Acetaminophen (Tylenol Supp) 650 mg Q4H PRN [place] TEMP > 37C; Start 07/07/17 at 17 :00 Acetaminophen (Tylenol Liquid) 650 mg Q4H PRN PO TEMP > 37C; Start 07/07/17 at 17:00 Meperidine HCl (Demerol) 12.5 mg Q4H PRN IV POST OPERATIVE SHIVERING Last administered on 07/08/17t 19:00; Admin Dose 12.5 MG; Start 07/07/17 at 17:00 Meperidine HCl (Demerol) 25 mg Q4H PRN IV POST OPERATIVE SHIVERING Last administered on 07/09/17 03:49; Admin Dose 25 MG; Start 07/07/17 at 17:00 Acetaminophen (Tylenol Tab) 650 mg Q6H PRN PO PAIN LEVEL 1-3 OR FEVER; Start 07/07/17 at 17:30 Acetaminophen/ Hydrocodone Bitart ([place] (5/325)) 1 tab Q6H PRN PO MODERATE PAIN LEVEL 4-6; Start 07/07/17 at 17:30 Morphine Sulfate (morphine) 2 mg Q4H PRN IV SEVERE PAIN LEVEL 7-10 Last administered on 07/09/17 11:06; Admin Dose 2 MG; Start 07/07/17 at 17:30 Enoxaparin Sodium (Lovenox) 40 mg DAILY [place] Last administered on 07/12/17 10: 10; Admin Dose 40 MG; Start 07/08/17 at 09:00 Aspirin (Halfprin) 81 mg DAILY PO Last administered on 07/12/17 09:57; Admin Dose 81 MG; Start 07/08/17 at 09:00 Famotidine (Pepcid Iv) 20 mg BID IV Last administered on 07/12/17 09:56; Admin Dose 20 MG; Start 07/09/17 at 09:00 CASIE ORTIZ Jul 12, 2017 10:42
--- NOTE | 2017-07-12 10:56 | CONS ---
Date/Time of Note Date/Time of Note DATE: 07/12/17 TIME: 10:54 Assessment/Plan Assessment/Plan Additional Assessment/Plan Chest x-ray was reviewed from today which is essentially clear. Assessment and recommendations; 1. Patient admitted with cardiac arrest status post hypothermia protocol with marked overall clinical improvement. 2. Status post respiratory failure. 3. History of prior coronary artery disease. Status post bypass surgery in the past. 4. Mild thrombocytopenia with interval improvement. 5. Possibly some element of aspiration pneumonia involving the left lower lobe. Continue current treatment. Patient awaiting transfer to [facility] for further coronary intervention. Consultation Date/Type/Reason Admit Date/Time Jul 07, 2017 at 16:46 Type of Consultation: Pulmonary/critical care Referring Provider: PRINCE HASSAN 24 HR Interval Summary Free Text/Dictation Patient's condition is markedly improved. Patient was successfully extubated yesterday afternoon. Remains awake and alert. Denies any shortness of breath, chest pain. General exam; elderly male, awake and alert. Currently in no distress. Exam/Review of Systems Vital Signs Vitals Vital Signs Date Time Temp Pulse Resp B/P Pulse Ox O2 Delivery O2 Flow Rate FiO2 07/12/17 09:00 82 18 140/79 96 Nasal Cannula 4.0 07/12/17 08:00 98.1 07/11/17 11:00 40 Intake and Output 07/11/17 07/11/17 07/12/17 15:00 23:00 07:00 Intake Total 170.1 ml 925 ml 600 ml Output Total 478 ml 511 ml 354 ml Balance -307.9 ml 414 ml 246 ml Exam HEENT exam; supple neck, no JVD. No lymphadenopathy. Midline trachea. No thyromegaly. Patient has a multiple carious teeth. Pupils are small bilaterally. Chest exam; clear to auscultation. S1-S2 audible, no murmurs. Regular rhythm. There is a well-healed sternal scar. Abdomen exam; soft, nontender. No organomegaly. Bowel sounds audible. Extremity exam; no peripheral edema. Pulses 1+ bilaterally. HAND TRIMMER exam; no focal deficit. Results Result Diagram: 07/12/17 0400 07/12/17 0400 Results 24 hrs Laboratory Tests Test 07/11/17 11:15 07/12/17 04:00 Blood Gas Specimen Source Blood arterial Arterial Blood Date Drawn 07/11/2017 10:40:56 AM Arterial Blood pH (Temp corrected) 7.392 Arterial Blood pCO2 (Temp correct) 45.0 Arterial Blood pO2 (Temp corrected) 106.7 H Arterial Blood HCO3 26.8 H Arterial Blood Base Excess 1.4 Arterial Blood Oxygen Saturation 97.8 Ilan Test ACCEPTAB Arterial Blood Gas Puncture Site Right Radial Arterial Blood Carboxyhemoglobin 0.1 Arterial Blood Methemoglobin 0.1 Blood Gas A-a O2 Differential 126.8 H Oxyhemoglobin Percent 97.6 Total Hemoglobin 13.5 Blood Gas Temperature 37.0 Blood Gas Actual Respiration Rate 12 Blood Gas Modality VENT - CPAP FiO2 40.0 Blood Gas Tidal Volume 621.0 Blood Gas Low PEEP Setting 5.0 Blood Gas Pressure Support 10 Blood Gas Notified Whom WILLIAM AGUIAR Blood Gas Notified Time 07/11/2017 10:57:57 AM White Blood Count 8.7 # Red Blood Count 3.81 L Hemoglobin 11.7 L Hematocrit 35.1 L Mean Corpuscular Volume 92.1 Mean Corpuscular Hemoglobin 30.7 Mean Corpuscular Hemoglobin Concent 33.3 Red Cell Distribution Width 13.7 Platelet Count 128 #L Mean Platelet Volume 11.6 H Neutrophils % 80.4 H Lymphocytes % 9.3 L Monocytes % 7.4 Eosinophils % 1.8 Basophils % 0.2 Nucleated Red Blood Cells % 0.0 Neutrophils # 7.0 Lymphocytes # 0.8 Monocytes # 0.6 Eosinophils # 0.2 Basophils # 0.0 Nucleated Red Blood Cells # 0.0 Sodium Level 144 Potassium Level 3.4 L Chloride Level 110 Carbon Dioxide Level 29 Anion Gap 8 Blood Urea Nitrogen 19 Creatinine 0.73 Glucose Level 101 Calcium Level 7.9 L Magnesium Level 2.0 Medications Medications Current Medications Acetaminophen (Tylenol Supp) 650 mg Q4H PRN [place] TEMP > 37C; Start 07/07/17 at 17 :00 Acetaminophen (Tylenol Liquid) 650 mg Q4H PRN PO TEMP > 37C; Start 07/07/17 at 17:00 Meperidine HCl (Demerol) 12.5 mg Q4H PRN IV POST OPERATIVE SHIVERING Last administered on 07/08/17t 19:00; Admin Dose 12.5 MG; Start 07/07/17 at 17:00 Meperidine HCl (Demerol) 25 mg Q4H PRN IV POST OPERATIVE SHIVERING Last administered on 07/09/17 03:49; Admin Dose 25 MG; Start 07/07/17 at 17:00 Acetaminophen (Tylenol Tab) 650 mg Q6H PRN PO PAIN LEVEL 1-3 OR FEVER; Start 07/07/17 at 17:30 Acetaminophen/ Hydrocodone Bitart ([place] (5/325)) 1 tab Q6H PRN PO MODERATE PAIN LEVEL 4-6; Start 07/07/17 at 17:30 Morphine Sulfate (morphine) 2 mg Q4H PRN IV SEVERE PAIN LEVEL 7-10 Last administered on 07/09/17 11:06; Admin Dose 2 MG; Start 07/07/17 at 17:30 Enoxaparin Sodium (Lovenox) 40 mg DAILY SC Last administered on 07/12/17 10: 10; Admin Dose 40 MG; Start 07/08/17 at 09:00 Aspirin (Halfprin) 81 mg DAILY PO Last administered on 07/12/17 09:57; Admin Dose 81 MG; Start 07/08/17 at 09:00 Famotidine (Pepcid Iv) 20 mg BID IV Last administered on 07/12/17 09:56; Admin Dose 20 MG; Start 07/09/17 at 09:00 KANU GRESHAM Jul 12, 2017 10:56
--- NOTE | 2017-07-12 14:25 | DS ---
Date/Time of Note Date/Time of Note DATE: 07/12/17 TIME: 14:21 Discharge Summary Admission/Discharge Info Admit Date/Time Jul 07, 2017 at 16:46 Discharge Date/Time Discharge Diagnosis Ventricular fibrilation Patient Condition: Fair Hx of Present Illness Patient is a 71-year-old male with no known medical history, patient had a cardiac arrest while in the locker room of a gym. Patient had a return of circulation after being given 2 rounds epinephrine, patient was intubated in the ED and no history can be obtained from the patient. Hypothermia protocol has been initiated. Hospital Course IMPRESSION: 1. Cardiac arrest with initial rhythm of ventricular fibrillation per report now post-op s/p LHC revealing 3 vessel [place] obstructive disease with occluded svg x 2 and patent GR to LAD 2. Positive troponin, status post cardiac arrest-downtrending 3. Abnormal ECG, status post cardiac arrest. 4. Hypertension. 5. History of coronary artery disease, status post coronary bypass graft surgery. 6. Respiratory failure, status post intubation. 7. Leukocytosis. 8. Possible diabetes mellitus. 9. Encephalopathy- improving slowly Recc: -Tele -serial ecg's -Continue asa -Follow MS closely -Follow Blood pressure closely ED report: 71-year-old male with history of coronary artery disease status post PCI and CABG, hyperlipidemia, hypertension and GERD presents to the ED via rescue ambulance after resuscitated cardiac arrest. Patient was found down in the locker room at his gym unresponsive. Bystander CPR was initiated. Approximate downtime was 8 minutes. When paramedics arrived patient was found to be in ventricular fibrillation was resuscitated with epinephrine 1 mg 3, amiodarone 450 mg IV and defibrillation 3. His transport to the ED in sinus rhythm. On arrival patient is unresponsive with agonal respirations. Patient was intubated and underwent hypothermia protocol TTE was performed showin. Normal left ventricular cavity size. Normal left ventricular wall thickness. Moderate global left ventricular systolic dysfunction. Ejection fraction is visually estimated at 30 %. Tissue Doppler/Mitral Doppler indices are consistent with impaired relaxation (Stage I diastolic dysfunction). 2. Trace mitral regurgitation. 3. Mild aortic valve regurgitation. 4. Normal appearance of the tricuspid valve. Unable to obtain RVSP due to minimal presence of tricuspid regurgitation. 5. Pulmonic valve not well visualized. There is trace pulmonic regurgitation. Coronary angiography was performed showin vessel [place] obstructive disease with occluded svg x 2 and patent GR to LAD No acute clot seen so no stent or intervention was performed The patient was able to be extubated yesterday following hypothermia protocol completion He has good neurologic status, alert, conversant, moving all extremities though is confused He will be transferred to [place] for further management and placement of AICD Home Meds Reported Medications Atorvastatin* (Atorvastatin*) 80 Mg Tablet, 80 MG PO QHS, #30 TAB 07/07/17 Atenolol* (Atenolol*) 25 Mg Tablet, 25 MG PO DAILY, #30 TAB 07/07/17 Primary Care Provider [facility] Pending Labs Laboratory Tests Test 07/12/17 04:00 White Blood Count 8.710^3/ul (4.8-10.8) Red Blood Count 3.8110^6/ul (4.70-6.10) Hemoglobin 11.7g/dl (14.0-18.0) Hematocrit 35.1% (42.0-52.0) Mean Corpuscular Volume 92.1fl (82.0-101.0) Mean Corpuscular Hemoglobin 30.7pg (29.0-33.0) Mean Corpuscular Hemoglobin Concent 33.3g/dl (32.0-37.0) Red Cell Distribution Width 13.7% (11.5-14.5) Platelet Count 75318^3/UL (140-415) Mean Platelet Volume 11.6fl (7.4-10.4) Neutrophils % 80.4% (39.0-77.0) Lymphocytes % 9.3% (15.0-51.0) Monocytes % 7.4% (0.0-11.0) Eosinophils % 1.8% (0.0-7.0) Basophils % 0.2% (0.0-2.0) Nucleated Red Blood Cells % 0.0/100WBC (0.0-0.0) Neutrophils # 7.010^3/ul (1.6-7.5) Lymphocytes # 0.810^3/ul (0.8-2.9) Monocytes # 0.610^3/ul (0.3-0.9) Eosinophils # 0.210^3/ul (0.0-0.5) Basophils # 0.010^3/ul (0.0-0.1) Nucleated Red Blood Cells # 0.010^3/ul (0.0-0.0) Sodium Level 144mmol/L (135-144) Potassium Level 3.4mmol/L (3.5-5.1) Chloride Level 110mmol/L (97-110) Carbon Dioxide Level 29mmol/L (21-31) Anion Gap 8 (8-16) Blood Urea Nitrogen 19mg/dl (7-20) Creatinine 0.73mg/dl (0.61-1.24) Glucose Level 101mg/dl (70-220) Calcium Level 7.9mg/dl (8.4-10.2) Magnesium Level 2.0mg/dl (1.7-2.5) BINDU KING MD Jul 12, 2017 14:25
[2017-07-12] MEDS ORDERED: ASPI-664 PO (14:26)
--- NOTE | 2017-07-12 14:47 | PN ---
Date/Time of Note Date/Time of Note DATE: 07/12/17 TIME: 14:47 Assessment/Plan Lines/Catheters IV Catheter Type (from Nrsg): Saline Lock Alvarez in Place (from Nrsg): Yes Assessment/Plan Chief Complaint/Hosp Course IMPRESSION: 1. Status post cardiac arrest with CPR. 2. Left-sided pneumothorax. resolved will monitor CXR . Discussed with the nursing staff. Problems: Subjective 24 Hr Interval Summary Pain Control: mild Exam/Review of Systems Vital Signs Vitals Vital Signs Date Time Temp Pulse Resp B/P Pulse Ox O2 Delivery O2 Flow Rate FiO2 07/12/17 12:00 75 07/12/17 12:00 98.6 16 127/68 96 Nasal Cannula 4.0 07/11/17 11:00 40 Intake and Output 07/11/17 07/11/17 07/12/17 14:59 22:59 06:59 Intake Total 258.5 ml 850 ml 600 ml Output Total 445 ml 533 ml 371 ml Balance -186.5 ml 317 ml 229 ml Exam ENMT: mucosa pink and moist, nl external ears & nose, nl lips & teeth, nl nasal mucosa & septum Neck: non-tender, supple Respiratory: clear to auscultation, normal air movement Cardiovascular: nl pulses, regular rate and rhythm Gastrointestinal: nl liver, spleen, non-tender, soft Results Result Diagram: 07/12/1739907/12/17399 GENEVA CALDERON MD Jul 12, 2017 14:47
[2017-07-12] MEDS ORDERED: POTASSIUM CHLORIDE (SR) 20 MEQ TAB PO STA (20:50)
[2017-07-13 06:51] LABS: CALCIUM 2.6 mg/dl (8.4-10.2); MAGNESIUM 0.8 mg/dl (1.7-2.5)
== END 2017-07-13 02:21 | disposition short-term general hospital (02) | DRG 286 ==
LOC: EDBD 13:13 → E/R 13:13 → ICU 16:46 → MERGE 16:46
PROVIDERS: ADMIT Hospitalist; ATTEND Hospitalist
PROC: 5A1945Z Respiratory Ventilation, 24-96 Consecutive Hours (ICD-10-PCS; 2017-07-07)
PROC: B213YZZ Fluoroscopy of Multiple Coronary Artery Bypass Grafts using Other Contrast (ICD-10-PCS; 2017-07-07)
PROC: B310YZZ Fluoroscopy of Thoracic Aorta using Other Contrast (ICD-10-PCS; 2017-07-07)
PROC: B211YZZ Fluoroscopy of Multiple Coronary Arteries using Other Contrast (ICD-10-PCS; 2017-07-07)
PROC: 02H633Z Insertion of Infusion Device into Right Atrium, Percutaneous Approach (ICD-10-PCS; 2017-07-07)
PROC: 0BH17EZ Insertion of Endotracheal Airway into Trachea, Via Natural or Artificial Opening (ICD-10-PCS; 2017-07-07)
PROC: 4A023N7 Measurement of Cardiac Sampling and Pressure, Left Heart, Percutaneous Approach (ICD-10-PCS; principal; 2017-07-07 19:00)
DX: I11.0 Hypertensive heart disease with heart failure (principal); I46.9 Cardiac arrest, cause unspecified; J96.90 Respiratory failure, unspecified, unspecified whether with hypoxia or hypercapnia; I25.82 Chronic total occlusion of coronary artery; G93.40 Encephalopathy, unspecified; J93.9 Pneumothorax, unspecified; D69.6 Thrombocytopenia, unspecified; I25.810 Atherosclerosis of coronary artery bypass graft(s) without angina pectoris; I50.42 Chronic combined systolic (congestive) and diastolic (congestive) heart failure; R94.5 Abnormal results of liver function studies; E11.9 Type 2 diabetes mellitus without complications; D72.829 Elevated white blood cell count, unspecified; I25.10 Atherosclerotic heart disease of native coronary artery without angina pectoris; Z95.1 Presence of aortocoronary bypass graft; Z95.5 Presence of coronary angioplasty implant and graft; R79.89 Other specified abnormal findings of blood chemistry
CPT/HCPCS: 31500; 36415; 36600; 70450; 71010; 74000; 80048; 80053; 80061; 81001; 82150; 82550; 82553; 82803; 82962; 83036; 83690; 83735; 83880; 84100; 84436; 84479; 84484; 85025; 85384; 85610; 85730; 87040; 87081; 87086; 92610; 93005; 93306; 93459; 94002; 94003; 94770; 97161; C1887; C9113; J0692; J1644; J1650; J1815; J1940; J2175; J2270; J3010; J3475; J7030; J7040; J7042; Q9967